=== PATIENT | female | born 1945 | race Caucasian/White ===

== ENCOUNTER 2019-09-11 21:23 | Observation (INO) | payer MEDICARE, MEDICAID ==
--- NOTE | 2019-09-11 22:26 | EDM.PDOC ---
ED HPI GENERAL MEDICAL PROBLEM - General Chief Complaint: General Stated Complaint: [facility] Time Seen by Provider: 09/11/19 21:52 Source of Information: Reports: Patient, Family (Daughter) History Limitations: Reports: No Limitations - History of Present Illness INITIAL COMMENTS - FREE TEXT/NARRATIVE: Mrs. Hills is a most pleasant 74-year-old woman with a past medical history significant for a stroke in 2002, leaving her with left hemiparesis, especially of her foot, a seizure disorder following the stroke, untreated COPD, bipolar affective disorder, and schizophrenia, who is accompanied to the ED by her daughter, who tells me that the patient ordinarily uses a walker. The patient's was just discharged from a facility, and the patient accompanied her daughter in picking him up. When they got home, the patient's daughter brought the patient into the house and sat her in a chair. She then went out to get her father, and when the 2 of them came back into the house, they found the patient sitting on the floor, apparently having fallen out of the chair onto her right side, around 12:30 this afternoon. The patient's daughter got the patient back up into the chair, got both of her parents situated, the left. She came back to see them this evening, then noticed that the patient appeared to be in pain around 19:30. The patient was complaining of right back pain, and told her daughter that she had had pain ever since she fell, but that she thought it would go away, therefore did not say anything. She reported that her pain was increased with movement, including deep breaths. The patient's daughter noticed a small bruise to the patient's right back, and tenderness without visible abnormality to another area on the patient's right back. She therefore called EMS. The patient is on Coumadin ever since her stroke. Her INR is checked every 2 weeks, including this morning, and no change was made in her Coumadin dosage. The patient denies recent illness, such as fever, chills, cough, dyspnea, chest pain, palpitations, nausea, vomiting, constipation, diarrhea, abdominal pain, urinary symptoms, recent weight gain or weight loss, recent bloody bowel movements or black bowel movements, recent joint aches, headaches, or rashes. Here in the ED, the patient is found to be hemodynamically stable, but her oxygen saturation is as low as 77% on room air, up to 95% on 1.5 L O2 per NC. The patient's PCP is Dr. Tigre Adams. Her Slice Plug Cutter Operator Helper is Dr. Sampson Mariee. Her Neurologist, whose name she cannot recall, is out of [facility]. She received an influenza vaccine this season. - Related Data Allergies Allergy/AdvReac Type Severity Reaction Status Date / Time Penicillins Allergy Rash Verified 08/07/16 14:27 codeine AdvReac Syncope Verified 04/26/17 10:25 nitroglycerin AdvReac Syncope Verified 04/26/17 10:25 Home Meds: Home Meds Citalopram [Celexa] 20 mg PO DAILY 08/07/16 [History] Metoprolol Succinate [Toprol XL] 100 mg PO DAILY 08/07/16 [History] Olmesartan [Benicar] 20 mg PO DAILY 08/07/16 [History] Omeprazole 20 mg PO DAILY 08/07/16 [History] Phenytoin 50 mg PO DAILY 08/07/16 [History] Simvastatin [Zocor] 40 mg PO BEDTIME 08/07/16 [History] Warfarin Sodium [Jantoven] 2.5 mg PO MO 08/07/16 [History] Ziprasidone HCl [Geodon] 40 mg PO BID 08/07/16 [History] Denosumab [Prolia] 60 mg IM Q6M 09/11/19 [History] Fluticasone Propionate [Flonase] 1 spray INH DAILY 09/11/19 [History] Phenytoin Sodium Extended [Dilantin] 100 mg PO BID 09/11/19 [History] Warfarin Sodium [Coumadin] 1.25 mg PO SUTUWETHFRSA 09/11/19 [History] Past Medical History Cardiovascular History: Reports: High Cholesterol, Hypertension Respiratory History: Reports: COPD (PFT-confirmed) Gastrointestinal History: Reports: GERD Genitourinary History: Reports: Chronic Renal Insuffiency Musculoskeletal History: Reports: Fracture (left hip), Osteoporosis Neurological History: Reports: CVA (2003 -> left hemiparesis), Seizure Psychiatric History: Reports: Bipolar, Schizophrenia - Past Surgical History HEENT Surgical History: Reports: Cataract Surgery (right only) Female Surgical History: Reports: Tubal Ligation Musculoskeletal Surgical History: Reports: Other (See Below) (Left hip pinning) Social & Family History - Tobacco Use Smoking Status *Q: Former Smoker Years of Tobacco use: 38 Packs/Tins Daily: 2 Month/Year Tobacco Last Used: Quit 01/05/2003 - Caffeine Use Caffeine Use: Reports: Coffee - Alcohol Use Alcohol Use History: No - Recreational Drug Use Recreational Drug Use: No - Living Situation & Occupation Living situation: Reports: , with Spouse Occupation: Retired ED ROS GENERAL - Review of Systems Review Of Systems: Comprehensive ROS is negative, except as noted in HPI. ED EXAM, GENERAL - Physical Exam Exam: See Below Exam Limited By: No Limitations General Appearance: Alert, WD/WN, No Apparent Distress Eye Exam: Bilateral Eye: EOMI, Normal Inspection Ears: Normal External Exam, Hearing Grossly Normal Nose: Normal Inspection Throat/Mouth: Normal Inspection, Normal Lips, Normal Voice, No Airway Compromise Head: Atraumatic, Normocephalic Neck: Normal Inspection, Full Range of Motion Respiratory/Chest: No Respiratory Distress, Lungs Clear, Normal Breath Sounds, No Accessory Muscle Use, Other (The patient reports pain to her posterior right back with inspiration. There is a small ecchymosis to the lateral right chest, and there is tenderness in this area, but the patient has greater tenderness to her posterior right chest, inferior to the right scapula. No visible abnormality at this site, and no rub heard on auscultation.). No: Decreased Breath Sounds, Crackles, Rhonchi, Wheezing, Stridor, Prolonged Expiration Cardiovascular: Normal Peripheral Pulses, Regular Rate, Rhythm, No Edema, No Gallop, No JVD, No Murmur, No Rub Peripheral Pulses: 4+: Radial (L), Radial (R) GI/Abdominal: Normal Bowel Sounds, Soft, Non-Tender, No Organomegaly, No Distention, No Abnormal Bruit, No Mass (Female) Exam: Deferred Rectal (Female) Exam: Deferred Back Exam: Normal Inspection, Full Range of Motion. No: CVA Tenderness (L), CVA Tenderness (R), Vertebral Tenderness (even to percussion) Extremities: Normal Inspection, Normal Range of Motion, No Pedal Edema, Normal Capillary Refill Neurological: Alert, Oriented, Normal Cognition, No Motor/Sensory Deficits Psychiatric: Flat Affect Skin Exam: Warm, Dry, Intact, Normal Color, No Rash Course - Vital Signs Last Recorded V/S: Last Vital Signs Temp 37.2 C 09/11/19 21:31 Pulse 70 09/11/19 21:31 Resp 20 09/11/19 21:31 BP 144/77 H 09/11/19 21:31 Pulse Ox 94 L 09/11/19 23:23 - Orders/Labs/Meds Orders: Active Orders 24 hr Category Date Time Status RT Incentive Spirometry [RC] ASDIRECTED Care 09/11/19 22:21 Active Meds: Medications Discontinued Medications Generic Name Dose Route Start Last Admin Trade Name Cj PRN Reason Stop Dose Admin Tramadol HCl 50 mg 09/12/19 04:24 09/12/19 04:32 Ultram PO 09/12/19 04:25 50 mg ONETIME ONE Administration - Re-Assessments/Exams Free Text/Narrative Re-Assessment/Exam: 09/11/19 22:22 The patient's presentation is concerning for a fractured right rib. I have ordered a chest x-ray to evaluate. She is breathing shallow due to pain, leading to hypoxemia down to 77% on room air, requiring a small amount of supplemental oxygen. I have ordered an incentive spirometer. 09/11/19 23:17 2-view chest radiograph reviewed. The cardiac silhouette is within normal limits. No pulmonary vascular congestion. No pleural effusions. No focal infiltrate. No pneumothorax. There is hyperinflation and bilateral diaphragmatic flattening, consistent with COPD. Aortosclerosis is noted. A medicalert device is seen over the sternum. Formal read per the Radiologist pending. 09/11/19 23:27 Chest x-ray results discussed with the patient and her daughter. The patient has been provided an incentive spirometer by the respiratory therapist, and instructed on its use. I recommended that we place the patient into observation , as she requires supplemental oxygen. We could arrange for her to go home with supplemental oxygen, however, in that scenario, the patient would likely just sit in a chair and not improve for a prolonged period of time, whereas if we bring her into observation, she can be seen by the respiratory therapist on a regular basis and instructed to use her incentive spirometry, which will quicken her recovery. The patient and her daughter agreed. 09/12/19 07:48 Two-view chest x-ray has been read by Dr. Velazquez as: 1. Emphysematous change. 2. Acute fractures within the right 7th and 8th ribs. 3. No other acute finding is seen. 09/12/19 08:[address] Chauhan here in the ED. She accepted the patient for placement into observation. Departure - Departure Time of Disposition: 23:28 Disposition: Refer to Observation Condition: Good Clinical Impression: Hypoxemia, Multiple fractures of ribs of right side - Discharge Information *PRESCRIPTION DRUG MONITORING PROGRAM REVIEWED*: Not Applicable *COPY OF PRESCRIPTION DRUG MONITORING REPORT IN PATIENT RAMIRO: Not Applicable Referrals: Tigre Adams MD [Primary Care Provider] - Sepsis Event Note - Evaluation Sepsis Screening Result: No Definite Risk - Focused Exam Vital Signs: Vital Signs Temp Pulse Resp BP Pulse Ox Pulse Ox 09/11/19 23:23 94 L 09/11/19 21:31 37.2 C 70 20 144/77 H 79 L Date Exam was Performed: 09/12/19 Time Exam was Performed: 08:44 - My Orders Last 24 Hours: My Active Orders 09/11/19 22:21 RT Incentive Spirometry [RC] ASDIRECTED - Assessment/Plan Last 24 Hours: My Active Orders 09/11/19 22:21 RT Incentive Spirometry [RC] ASDIRECTED
[2019-09-12] MEDS ORDERED: traMADol 50 MG Tab PO ONE (04:24)
--- NOTE | 2019-09-12 07:36 | CR ---
Chest: Two views of the chest were obtained. Comparison: Prior chest x-ray of 06/13/13. Heart size and mediastinum are normal. Lungs are clear but hyperinflated. Bony structures are osteopenic. Compression deformity is noted within the upper thoracic spine which appears old. Fractures are noted within the right 7th and 8th ribs which are most likely acute. No pneumothorax is seen at this time. Impression: 1. Emphysematous change. 2. Acute fractures within the right 7th and 8th ribs. 3. No other acute finding is seen. Diagnostic code #3 This report was dictated in [place] Standard Time
[2019-09-12] MEDS ORDERED: Ondansetron 4 MG/2 ML SDV IV PRN (09:55)
[2019-09-12] MEDS ORDERED: Morphine 2 MG/ML Syringe IVPUSH PRN (09:55)
[2019-09-12] MEDS ORDERED: Ondansetron 4 MG Tab.DIS PO PRN (09:55)
[2019-09-12] MEDS: Acetaminophen 325 MG Tab PO SCH ×3 (10:58→21:23)
[2019-09-12] MEDS: Trolamine Salicylate/Aloe Vera 10% Crm 85 GM Tube TOP PRN ×2 (10:59→17:40)
--- NOTE | 2019-09-12 12:00 | PCM.HP.2 ---
H&P History of Present Illness - General Date of Service: 09/12/19 Admit Problem/Dx: Admission Diagnosis/Problem Admission Diagnosis/Problem Hypoxemia - History of Present Illness Initial Comments - Free Text/Narative: This is a 74 year old female with past medical history of hypertension and previous stroke who comes to the ED brought by daughter for right sided upper flank pain. As per patient's daughter yesterday in the morning she got home with both of her parents, first walked in mom and later went outside to get her dad. When she walked in with her dad, patient was sitting on the floor, she helped her up and walked her to the living room where she sat down. She asked multiple times if the patient felt ok, and the patient said yes. Late on in the afternoon she noted patient was grimacing with right arm movements and she was avoiding to move that side as much as possible for which she brought her in to the ED for further evaluation. Right ribs Pain Score (Numeric/FACES): 8 - Related Data Allergies/Adverse Reactions: Allergies Allergy/AdvReac Type Severity Reaction Status Date / Time Penicillins Allergy Rash Verified 09/12/19 10:48 codeine AdvReac Syncope Verified 09/12/19 10:48 nitroglycerin AdvReac Syncope Verified 09/12/19 10:48 Home Medications: Home Meds Citalopram [Celexa] 20 mg PO DAILY 08/07/16 [History] Metoprolol Succinate [Toprol XL] 100 mg PO DAILY 08/07/16 [History] Olmesartan [Benicar] 20 mg PO DAILY 08/07/16 [History] Omeprazole 20 mg PO DAILY 08/07/16 [History] Phenytoin 50 mg PO DAILY 08/07/16 [History] Simvastatin [Zocor] 40 mg PO BEDTIME 08/07/16 [History] Warfarin Sodium [Jantoven] 2.5 mg PO MO 08/07/16 [History] Ziprasidone HCl [Geodon] 40 mg PO BID 08/07/16 [History] Denosumab [Prolia] 60 mg IM Q6M 09/11/19 [History] Fluticasone Propionate [Flonase] 1 spray INH DAILY 09/11/19 [History] Phenytoin Sodium Extended [Dilantin] 100 mg PO BID 09/11/19 [History] Warfarin Sodium [Coumadin] 1.25 mg PO SUTUWETHFRSA 09/11/19 [History] Past Medical History HEENT History: Reports: Cataract Cardiovascular History: Reports: High Cholesterol, Hypertension, SOB on Exertion Respiratory History: Reports: COPD Gastrointestinal History: Reports: GERD Genitourinary History: Reports: Chronic Renal Insuffiency Musculoskeletal History: Reports: Fracture, Osteoporosis Neurological History: Reports: CVA, Seizure Other Neuro History: 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; last seizure 2002 Psychiatric History: Reports: Bipolar, Schizophrenia - Past Surgical History HEENT Surgical History: Reports: Cataract Surgery Female Surgical History: Reports: Tubal Ligation Social & Family History - Family History Cardiac: Reports: Hypertension, [place] : Reports: None OBGYN: Reports: None Musculoskeletal: Reports: None Neurological: Reports: CVA Psychiatric: Reports: None Endocrine/Metabolic: Reports: None Hematologic: Reports: None Immunologic: Reports: None Dermatologic: Reports: None Oncologic: Reports: Colon - Tobacco Use Smoking Status *Q: Former Smoker Years of Tobacco use: 38 Packs/Tins Daily: 2 Used Tobacco, but Quit: Yes Month/Year Tobacco Last Used: 2009 - Caffeine Use Caffeine Use: Reports: Coffee - Recreational Drug Use Recreational Drug Use: No - Living Situation & Occupation Living situation: Reports: , with Spouse Occupation: Retired H&P Review of Systems - Review of Systems: Review Of Systems: See Below General: Denies: Fever, Chills, Malaise, Weakness, Fatigue, Night Sweats, Diaphoresis, Decreased Appetite HEENT: Denies: Contact Lenses, Dysphasia, Ear Pain, Eye Pain, Glasses, Headaches , Hearing Changes, Rhinitis, Post Nasal Drip, Sinus Congestion, Sore Throat, Vertigo Pulmonary: Denies: Shortness of Breath, Wheezing, Pleuritic Chest Pain, Cough, Sputum, Hemoptysis Cardiovascular: Denies: Chest Pain, Palpitations, Dyspnea on Exertion, Orthopnea , PND, Edema, Lightheadedness Gastrointestinal: Denies: Abdominal Pain, Anorexia, Constipation, Diarrhea, Distension, Flatus, Nausea, Vomiting Genitourinary: Denies: Dysuria, Frequency, Burning, Pain, Urgency, Incontinence , Hematuria, Retention, Discharge Musculoskeletal: Denies: Neck Pain, Shoulder Pain, Arm Pain, Back Pain, Hand Pain, Leg Pain, Foot Pain, Joint Pain, Joint Swelling, Muscle Pain, Muscle Stiffness Skin: Denies: Cyanosis, Jaundice, Mottled, Pallor, Diaphoresis, Dryness Psychiatric: Denies: Confusion, Depression, Mood Lability Neurological: Denies: Confusion, Dizziness, Headache Hematologic/Lymphatic: Denies: Anemia, Easy Bleeding Immunologic: Denies: Anaphylaxis, Food Allergy Exam - Exam Exam: See Below - Vital Signs Vital Signs: Last Vital Signs Temp 98.3 F 09/12/19 10:00 Pulse 76 09/12/19 10:14 Resp 16 09/12/19 10:00 BP 138/86 09/12/19 10:00 Pulse Ox 94 L 09/12/19 10:14 Weight: 57.606 kg - Exam General: Alert, Oriented, Cooperative, Mild Distress HEENT: Conjunctiva Clear, EOMI, Hearing Intact, Mucosa Moist & [place]: Supple, Trachea Midline, +2 Carotid Pulse wo Bruit. No: Lymphadenopathy Lungs: Decreased Breath Sounds. No: Crackles, Rales, Rhonchi, Wheezing Cardiovascular: Regular Rate, Regular Rhythm. No: Systolic Murmur, Diastolic Murmur, Rubs, Gallop/S3, Gallop/S4 GI/Abdominal Exam: Normal Bowel Sounds, Soft, Non-Tender. No: Distended, Guarding, Rigid Extremities: Normal Inspection, Normal Range of Motion, Non-Tender, No Pedal Edema Neuro Extensive - Mental Status: Alert Psychiatric: Alert - Patient Data Result Diagrams: 09/12/19 15:00 Sepsis Event Note - Evaluation Sepsis Screening Result: No Definite Risk - Focused Exam Vital Signs: Vital Signs Temp Pulse Resp BP Pulse Ox Pulse Ox 09/12/19 10:14 76 94 L 09/12/19 10:00 98.3 F 74 16 138/86 95 09/12/19 09:55 95 Date Exam was Performed: 09/12/19 Time Exam was Performed: 16:50 - Problem List (1) Multiple fractures of ribs of right side SNOMED Code(s): 1260434 ICD Code: S22.41XA - MULTIPLE FRACTURES OF RIBS, RIGHT SIDE, INIT FOR CLOS FX Status: Acute Current Visit: Yes (2) Hypoxemia SNOMED Code(s): 404303047 ICD Code: R09.02 - HYPOXEMIA Status: Acute Current Visit: Yes (3) Hypertension SNOMED Code(s): 75572966 ICD Code: I10 - ESSENTIAL (PRIMARY) HYPERTENSION Status: Acute Current Visit: Yes (4) History of CVA (cerebrovascular accident) SNOMED Code(s): 958035620 ICD Code: Z86.73 - PRSNL HX OF TIA (TIA), AND CEREB INFRC W/O RESID DEFICITS Status: Acute Current Visit: Yes (5) History of seizures SNOMED Code(s): 416100741 ICD Code: Z87.898 - PERSONAL HISTORY OF OTHER SPECIFIED CONDITIONS Status: Acute Current Visit: Yes (6) Chronic anticoagulation SNOMED Code(s): 676700149 ICD Code: Z79.01 - PLUMBER ASSISTANT (CURRENT) USE OF ANTICOAGULANTS Status: Acute Current Visit: Yes Problem List Initiated/Reviewed/Updated: Yes Assessment/Plan Comment:: Multiple fractures of ribs of right side 2/2 fall Hypoxemia O2 sat on admission 79%, went up to 94% on 2L NC Patient not taking deep breaths due to pain Unknown fall mechanism PLAN - Pain control with scheduled acetaminophen - Incentive spirometry - RT education for IS Hypertension BP on admission 144/77 Home management with Olmesartan and Metoprolol PLAN - Continue home meds once available History of CVA History of seizures On chronic anticoagulation CVA in 2002 with subsequent seizures PLAN - Phenytoin level - Continue home phenytoin - PT/ INR - Continue home Warfarin PROPHYLAXIS DVT- Continue warfarin GI- not indicated CODE STATUS: FULL CODE DISPOSITION: Patient will be admitted under observation for incentive spirometry training and oxygen supplementation. Inpatient order was placed by mistake. Lives with , daughter comes in to help. - Mortality Measure Prognosis:: Good
[2019-09-12] MEDS ORDERED: Warfarin Sliding Scale PO SCH (17:15)
[2019-09-12] MEDS: Phenytoin 100 MG Cap.ER PO SCH (21:23)
[2019-09-12] MEDS: Ziprasidone HCl 20 MG Cap PO SCH (21:25)
[2019-09-12] MEDS: Warfarin 2.5 MG Tab PO SCH (21:26)
[2019-09-13] MEDS: Acetaminophen 325 MG Tab PO SCH ×3 (07:36→19:29)
[2019-09-13] MEDS ORDERED: Phenytoin 50 MG Tab.Chew PO SCH (09:00)
[2019-09-13] MEDS ORDERED: Losartan 25 MG Tab PO SCH ×2 (09:00→21:00)
[2019-09-13] MEDS ORDERED: Metoprolol Succinate 50 MG Tab.ER PO SCH (09:00)
[2019-09-13] MEDS ORDERED: Citalopram 20 MG Tab PO SCH (09:00)
[2019-09-13] MEDS: Ziprasidone HCl 20 MG Cap PO SCH (10:54)
[2019-09-13] MEDS: Phenytoin 100 MG Cap.ER PO SCH (10:54)
[2019-09-13] MEDS: Trolamine Salicylate/Aloe Vera 10% Crm 85 GM Tube TOP PRN (13:09)
[2019-09-13] MEDS: Lidocaine 4% 1 each Patch TOP SCH (16:25)
[2019-09-13] MEDS ORDERED: Warfarin 2.5 MG Tab**OWN MED PO ONE ×2 (19:30)
[2019-09-13] MEDS: Warfarin 2.5 MG Tab PO SCH (20:17)
[2019-09-13] MEDS ORDERED: OLMESARTAN 20 MG PO SCH (21:00)
[2019-09-13] MEDS: ZIPRASIDONE 40 MG PO SCH (21:10)
[2019-09-13] MEDS: Phenytoin 100 MG Cap.ER**OWN MED PO SCH (21:11)
--- NOTE | 2019-09-13 21:44 | PCM.PN ---
- General Info Date of Service: 09/13/19 Subjective Update: Feeling OK Slept OK Tolerating diet Using incentive spirometer - Patient Data Vitals - Most Recent: Last Vital Signs Temp 98.2 F 09/13/19 16:11 Pulse 72 09/13/19 16:41 Resp 20 09/13/19 11:11 BP 135/94 H 09/13/19 16:11 Pulse Ox 92 L 09/13/19 18:12 Weight - Most Recent: 56.608 kg - Exam General: Alert, Cooperative, No Acute Distress HEENT: Pupils Equal, Pupils Reactive, Mucous Membr. Moist/[place]: Supple, Trachea Midline, No JVD, No Thyromegaly, +2 Carotid Pulse wo Bruit. No: Lymphadenopathy Lungs: Clear to Auscultation, Decreased Breath Sounds. No: Crackles, Rales, Rhonchi, Wheezing Cardiovascular: Regular Rate, Regular Rhythm. No: Murmurs, Gallops, Rubs GI/Abdominal Exam: Normal Bowel Sounds, Soft, Non-Tender, No Organomegaly, No Distention. No: Guarding, Rigid, Rebound Back Exam: Normal Inspection, CVA Tenderness (R). No: CVA Tenderness (L) Extremities: Normal Inspection, Normal Range of Motion, Non-Tender, No Pedal Edema, Normal Capillary Refill Sepsis Event Note - Evaluation Sepsis Screening Result: No Definite Risk - Focused Exam Vital Signs: Vital Signs Temp Pulse Resp BP Pulse Ox Pulse Ox 09/13/19 18:12 92 L 09/13/19 16:41 72 90 L 09/13/19 16:31 65 97 09/13/19 16:11 98.2 F 59 L 135/94 H 92 L 09/13/19 12:54 72 133/73 94 L 09/13/19 11:44 67 162/106 H 95 09/13/19 11:11 98.1 F 65 20 147/113 H 94 L 09/13/19 10:53 69 163/67 H Date Exam was Performed: 09/14/19 Time Exam was Performed: 14:01 - Problem List & Annotations (1) Multiple fractures of ribs of right side SNOMED Code(s): 6202642 Code(s): S22.41XA - MULTIPLE FRACTURES OF RIBS, RIGHT SIDE, INIT FOR CLOS FX Status: Acute Current Visit: Yes (2) Hypoxemia SNOMED Code(s): 009109816 Code(s): R09.02 - HYPOXEMIA Status: Acute Current Visit: Yes (3) Hypertension SNOMED Code(s): 71616887 Code(s): I10 - ESSENTIAL (PRIMARY) HYPERTENSION Status: Acute Current Visit: Yes (4) History of CVA (cerebrovascular accident) SNOMED Code(s): 621214322 Code(s): Z86.73 - PRSNL HX OF TIA (TIA), AND CEREB INFRC W/O RESID DEFICITS Status: Acute Current Visit: Yes (5) History of seizures SNOMED Code(s): 106776467 Code(s): Z87.898 - PERSONAL HISTORY OF OTHER SPECIFIED CONDITIONS Status: Acute Current Visit: Yes (6) Chronic anticoagulation SNOMED Code(s): 422006675 Code(s): Z79.01 - [facility] (CURRENT) USE OF ANTICOAGULANTS Status: Acute Current Visit: Yes (7) Schizophrenia SNOMED Code(s): 43233718 Code(s): F20.9 - SCHIZOPHRENIA, UNSPECIFIED Status: Acute Current Visit: Yes - Problem List Review Problem List Initiated/Reviewed/Updated: Yes - Plan Plan:: Multiple fractures of ribs of right side 2/2 fall Hypoxemia O2 sat on admission 79%, went up to 94% on 2L NC O2 trend 85-94% on 0-1L NC Patient not taking deep breaths due to pain Unknown fall mechanism PLAN - Pain control with scheduled acetaminophen - Incentive spirometry - RT education for IS Hypertension BP trend 122-135/64-74 Home management with Olmesartan and Metoprolol PLAN - Continue home meds once available Schizophrenia On citalopram and ziprasidone Not psychotic currently PLAN - Continue home medications History of CVA History of seizures On chronic anticoagulation CVA in 2002 with subsequent seizures PLAN - Phenytoin level - Continue home phenytoin - PT/ INR - Continue home Warfarin PROPHYLAXIS DVT- Continue warfarin GI- not indicated CODE STATUS: FULL CODE DISPOSITION: Patient will be admitted under observation for incentive spirometry training and oxygen supplementation. Inpatient order was placed by mistake. Lives with , daughter comes in to help.
[2019-09-14] MEDS: Acetaminophen 325 MG Tab PO SCH ×3 (00:32→13:41)
[2019-09-14] MEDS: Lidocaine 4% 1 each Patch TOP SCH (08:30)
[2019-09-14] MEDS: ZIPRASIDONE 40 MG PO SCH (08:39)
[2019-09-14] MEDS: Phenytoin 100 MG Cap.ER**OWN MED PO SCH (08:40)
[2019-09-14] MEDS ORDERED: Citalopram 20 MG Tab**OWN MED PO SCH (09:00)
[2019-09-14] MEDS ORDERED: METOPROLOL SUCCINATE 100 MG PO SCH (09:00)
[2019-09-14] MEDS ORDERED: PHENYTOIN 50 MG PO SCH (09:00)
[2019-09-14] MEDS ORDERED: Lactulose Soln 10 GM/15 ML 30 ML UD Cup PO SCH (11:15)
[2019-09-14 12:31] VITALS: BP 151/75; PULSE 72
--- NOTE | 2019-09-14 14:01 | PCM.DCSUM1 ---
Discharge Summary - Hospital Course HPI Initial Comments: This is a 74 year old female with past medical history of hypertension and previous stroke who comes to the ED brought by daughter for right sided upper flank pain. As per patient's daughter yesterday in the morning she got home with both of her parents, first walked in mom and later went outside to get her dad. When she walked in with her dad, patient was sitting on the floor, she helped her up and walked her to the living room where she sat down. She asked multiple times if the patient felt ok, and the patient said yes. Late on in the afternoon she noted patient was grimacing with right arm movements and she was avoiding to move that side as much as possible for which she brought her in to the ED for further evaluation. Diagnosis: Stroke: No - Discharge Data Discharge Date: 09/14/19 Discharge Disposition: Home, Self-Care 01 Condition: Good - Referral to Home Health Primary Care Physician: Tigre Adams MD - Discharge Diagnosis/Problem(s) (1) Multiple fractures of ribs of right side SNOMED Code(s): 9746753 ICD Code: S22.41XA - MULTIPLE FRACTURES OF RIBS, RIGHT SIDE, INIT FOR CLOS FX Status: Acute Current Visit: Yes (2) Hypoxemia SNOMED Code(s): 828776236 ICD Code: R09.02 - HYPOXEMIA Status: Acute Current Visit: Yes (3) Hypertension SNOMED Code(s): 46761375 ICD Code: I10 - ESSENTIAL (PRIMARY) HYPERTENSION Status: Acute Current Visit: Yes (4) History of CVA (cerebrovascular accident) SNOMED Code(s): 593200727 ICD Code: Z86.73 - PRSNL HX OF TIA (TIA), AND CEREB INFRC W/O RESID DEFICITS Status: Acute Current Visit: Yes (5) History of seizures SNOMED Code(s): 903792926 ICD Code: Z87.898 - PERSONAL HISTORY OF OTHER SPECIFIED CONDITIONS Status: Acute Current Visit: Yes (6) Chronic anticoagulation SNOMED Code(s): 484339569 ICD Code: Z79.01 - CARE HOME (CURRENT) USE OF ANTICOAGULANTS Status: Acute Current Visit: Yes (7) Schizophrenia SNOMED Code(s): 74939185 ICD Code: F20.9 - SCHIZOPHRENIA, UNSPECIFIED Status: Chronic Current Visit: Yes - Patient Summary/Data Consults: Consultations 09/12/19 09:55 Respiratory Care Assess and Treatment [CONS] Routine Hospital Course: Patient was admitted due to hypoxemia. She was found to be hypoxemic, down to 85% on RA due to poor inspiratory effort. Admitted with scheduled tylenol and instructions by RT to use incentive spirometer to induce forces inspiration. Initially she was not taking deep breaths but after coaching she continued to learn and take deeper breaths without any hypoxemia. Once patient was weaned off O2 supplementation she was discharged home on scheduled pain control both PO and topically - Patient Instructions Showering/Bathing: May Shower Notify Provider of: Fever, Increased Pain, Swelling and Redness, Drainage - Discharge Plan *PRESCRIPTION DRUG MONITORING PROGRAM REVIEWED*: Not Applicable *COPY OF PRESCRIPTION DRUG MONITORING REPORT IN PATIENT RAMIRO: Not Applicable Prescriptions/Med Rec: Naproxen [Naprosyn] 500 mg PO Q12HR #20 tablet Acetaminophen [Tylenol] 650 mg PO Q6H #20 tablet Docusate Sodium/Sennosides [Senna Plus] 1 tab PO BID #30 tablet Lidocaine 4% [Aspercreme 4%] 1 each TOP DAILY #10 patch Trolamine Salicylate/Aloe Vera [Aspercreme 10%] 1 gm TOP Q1H #3 tube Home Medications: Home Meds Citalopram [Celexa] 20 mg PO DAILY 08/07/16 [History] Metoprolol Succinate [Toprol XL] 100 mg PO DAILY 08/07/16 [History] Olmesartan [Benicar] 20 mg PO DAILY 08/07/16 [History] Omeprazole 20 mg PO DAILY 08/07/16 [History] Phenytoin 50 mg PO DAILY 08/07/16 [History] Simvastatin [Zocor] 40 mg PO BEDTIME 08/07/16 [History] Warfarin Sodium [Jantoven] 2.5 mg PO MO 08/07/16 [History] Ziprasidone HCl [Geodon] 40 mg PO BID 08/07/16 [History] Denosumab [Prolia] 60 mg IM Q6M 09/11/19 [History] Fluticasone Propionate [Flonase] 1 spray INH DAILY 09/11/19 [History] Phenytoin Sodium Extended [Dilantin] 100 mg PO BID 09/11/19 [History] Warfarin Sodium [Coumadin] 1.25 mg PO SUTUWETHFRSA 09/11/19 [History] Acetaminophen [Tylenol] 650 mg PO Q6H #20 tablet 09/14/19 [Rx] Docusate Sodium/Sennosides [Senna Plus] 1 tab PO BID #30 tablet 09/14/19 [Rx] Lidocaine 4% [Aspercreme 4%] 1 each TOP DAILY #10 patch 09/14/19 [Rx] Naproxen [Naprosyn] 500 mg PO Q12HR #20 tablet 09/14/19 [Rx] Trolamine Salicylate/Aloe Vera [Aspercreme 10%] 1 gm TOP Q1H #3 tube 09/14/19 [ Rx] Trolamine Salicylate/Aloe Vera [Aspercreme 10%] 1 gm TOP Q4H PRN #0 tube [Rx] Referrals: Tigre Adams MD [Primary Care Provider] - - Discharge Summary/Plan Comment DC Time >30 min.: Yes - General Info Date of Service: 09/14/19 Subjective Update: Feeling better Slept OK Tolerating diet Ambulating - Patient Data Vitals - Most Recent: Last Vital Signs Temp 97.2 F 09/14/19 11:56 Pulse 72 09/14/19 11:56 Resp 18 09/14/19 11:56 BP 151/75 H 09/14/19 11:56 Pulse Ox 94 L 09/14/19 11:56 Weight - Most Recent: 56.699 kg - Exam General: Reports: Alert, Cooperative, No Acute Distress HEENT: Reports: Pupils Equal, Pupils Reactive, Mucous Membr. Moist/[place] Neck: Reports: Supple, Trachea Midline, No JVD, No Thyromegaly Lungs: Reports: Clear to Auscultation, Normal Respiratory Effort. Denies: Crackles, Rales, Rhonchi, Wheezing Cardiovascular: Reports: Regular Rate, Regular Rhythm. Denies: Murmurs, Gallops , Rubs GI/Abdominal Exam: Normal Bowel Sounds, Soft, Non-Tender Back Exam: Reports: Normal Inspection, CVA Tenderness (R), Muscle Spasm. Denies : CVA Tenderness (L), Paraspinal Tenderness, Vertebral Tenderness Neurological: Reports: No New Focal Deficit Psy/Mental Status: Reports: Alert, Other (flat affect)
[2019-09-14] MEDS ORDERED: Warfarin 2.5 MG Tab**OWN MED PO SCH (18:00)
[2019-09-14] MEDS ORDERED: Naproxen 500 MG Tab PO SCH (21:00)
[2019-09-15] MEDS ORDERED: Warfarin 2.5 MG Tab PO SCH (18:00)
== END 2019-09-14 15:15 | disposition home or self-care (01) ==
LOC: SUPCPDRO 21:23 → JD.ED 21:23 → JD.MS 09-12 09:23
PROVIDERS: ADMIT Internal Medicine; ATTEND Internal Medicine
DX: S22.41XA Multiple fractures of ribs, right side, initial encounter for closed fracture (principal); R09.02 Hypoxemia; I12.9 Hypertensive chronic kidney disease with stage 1 through stage 4 chronic kidney disease, or unspecified chronic kidney disease; I69.854 Hemiplegia and hemiparesis following other cerebrovascular disease affecting left non-dominant side; I69.898 Other sequelae of other cerebrovascular disease; F31.9 Bipolar disorder, unspecified; F20.9 Schizophrenia, unspecified; E78.00 Pure hypercholesterolemia, unspecified; N18.9 Chronic kidney disease, unspecified; J44.9 Chronic obstructive pulmonary disease, unspecified; K21.9 Gastro-esophageal reflux disease without esophagitis; W07.XXXA Fall from chair, initial encounter; Z87.891 Personal history of nicotine dependence; Z79.01 Long term (current) use of anticoagulants; Z79.899 Other long term (current) drug therapy; Z88.0 Allergy status to penicillin; Z88.5 Allergy status to narcotic agent; Z88.8 Allergy status to other drugs, medicaments and biological substances
CPT/HCPCS: 36415; 71046; 80185; 85027; 85610; 94761; 96374; 99285; A9270; J2270

== ENCOUNTER 2020-06-24 16:53 | Emergency (ER) | payer MEDICARE, MEDICAID ==
[2020-06-24] MEDS ORDERED: Ondansetron 4 MG/2 ML SDV IVPUSH ONE (16:56)
[2020-06-24] MEDS ORDERED: Ondansetron 4 MG/2 ML SDV ONE (16:57)
[2020-06-24 17:03] VITALS: BP 157/84; PULSE 72
--- NOTE | 2020-06-24 17:06 | EDM.PDOC ---
ED HPI GENERAL MEDICAL PROBLEM - General Chief Complaint: Head Injury Stated Complaint: [facility] Time Seen by Provider: 06/24/20 16:53 - History of Present Illness INITIAL COMMENTS - FREE TEXT/NARRATIVE: 75-year-old female brought in by EMS after falling and hitting her head. The patient was using her walker getting ready to take a shower and fell straight backwards according to the patient's daughter. Striking her head on the edge of the shower. She did obtain a laceration to this area. This was on the left posterior scalp. Patient is on Coumadin the patient does not recall why. She did have some loss of consciousness the time of this is unclear. The patient has had a CVA in the past. This was in 2002 the patient has a resultant left hemiparesis. Because of this is unclear patient does not recall ever having an irregular heartbeat or having blood clots. The patient has had an upset stomach prior to this. But denies any other symptoms at this time the patient denies any pain. She is brought in with full C-spine precautions on a backboard - Related Data Allergies Allergy/AdvReac Type Severity Reaction Status Date / Time Penicillins Allergy Rash Verified 06/24/20 17:03 codeine AdvReac Syncope Verified 06/24/20 17:03 nitroglycerin AdvReac Syncope Verified 06/24/20 17:03 Home Meds: Home Meds Citalopram [Celexa] 20 mg PO DAILY 08/07/16 [History] Metoprolol Succinate [Toprol XL] 100 mg PO DAILY 08/07/16 [History] Olmesartan [Benicar] 20 mg PO DAILY 08/07/16 [History] Omeprazole 20 mg PO DAILY 08/07/16 [History] Phenytoin 50 mg PO DAILY 08/07/16 [History] ziprasidone HCL [Geodon] 40 mg PO BID 08/07/16 [History] Phenytoin Sodium Extended [Dilantin] 100 mg PO BID 09/11/19 [History] Rosuvastatin Calcium 20 mg PO DAILY 06/24/20 [History] Warfarin Sodium [Jantoven] 06/24/20 [History] Past Medical History HEENT History: Reports: Cataract Cardiovascular History: Reports: High Cholesterol, Hypertension, SOB on Exertion Respiratory History: Reports: COPD Gastrointestinal History: Reports: GERD Genitourinary History: Reports: Chronic Renal Insuffiency Musculoskeletal History: Reports: Fracture, Osteoporosis Neurological History: Reports: CVA, Seizure Other Neuro History: 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; last seizure 2002 Psychiatric History: Reports: Bipolar, Schizophrenia - Past Surgical History HEENT Surgical History: Reports: Cataract Surgery Female Surgical History: Reports: Tubal Ligation Social & Family History - Family History Cardiac: Reports: Hypertension, [place] : Reports: None OBGYN: Reports: None Musculoskeletal: Reports: None Neurological: Reports: CVA Psychiatric: Reports: None Endocrine/Metabolic: Reports: None Hematologic: Reports: None Immunologic: Reports: None Dermatologic: Reports: None Oncologic: Reports: Colon - Caffeine Use Caffeine Use: Reports: Coffee - Living Situation & Occupation Living situation: Reports: , with Spouse Occupation: Retired ED ROS GENERAL - Review of Systems Review Of Systems: See Below Constitutional: Reports: No Symptoms HEENT: Reports: No Symptoms Respiratory: Reports: No Symptoms Cardiovascular: Reports: No Symptoms Endocrine: Reports: No Symptoms GI/Abdominal: Reports: Nausea. Denies: Abdominal Pain, Constipation, Diarrhea, Vomiting : Reports: No Symptoms Musculoskeletal: Reports: No Symptoms Skin: Reports: No Symptoms Neurological: Denies: Dizziness, Numbness, Seizure (She has a seizure disorder but she has not had a seizure in over 2 years), Tingling Psychiatric: Reports: No Symptoms Hematologic/Lymphatic: Reports: Other (Is on Coumadin) Immunologic: Reports: No Symptoms ED EXAM, HEAD INJURY - Physical Exam Exam: See Below Exam Limited By: No Limitations General Appearance: Alert, No Apparent Distress Head: Normocephalic, Other (Patient has a laceration on posterior scalp try to identify the exact location is difficulty she still in a c-collar. After the c- collar was removed patient is got 1.1 cm laceration left posterior scalp) Eyes: Bilateral Eye: EOMI, Normal Inspection, PERRL Ears: Normal External Exam, Normal Canal, Hearing Grossly Normal, Normal TMs Nose: Normal Inspection, Normal Mucousa, No Blood Throat/Mouth: Normal Inspection, Normal Lips, Normal Teeth, Normal Gums, Normal Oropharynx, Normal Voice, No Airway Compromise Neck: Other (During the initial exam patient has a c-collar in place. C-collar was removed after her cervical CT showed no evidence of acute fracture or dislocation. Patient was able to demonstrate good neck motion. Nontender with palpation.) Respiratory: No Respiratory Distress, Lungs Clear, Normal Breath Sounds Cardiovascular: Regular Rate, Rhythm, No Edema, No Murmur GI/Abdominal Exam: Normal Bowel Sounds, Soft, Non-Tender Back Exam: Normal Inspection, CVA Tenderness (R), Other (Initial examination patient was logrolled her back was examined no step-off deformities noted no spi nous process discomfort noted palpation around the c-collar did not elicit any obvious tenderness). No: CVA Tenderness (L) Neurologic: varitypist II-XII nml As Tested, No Motor/Sensory Deficits, Alert, Oriented x 3. No: Aphasia, Facial Droop, Motor Weakness, Sensory Deficit, Depressed Affect Skin: Normal Color, Warm/Dry - [place] Coma Score Best Eye Response (Sarah): (4) Open Spontaneously Best Verbal Response (Sarah): (5) Oriented Best Motor Response ([place]): (6) Obeys Commands ED LACERATION/WOUND & JODY PROC - Laceration/Wound Repair Left Head Lac/wound length in cm: 3.1 Appearance: Subcutaneous Anesthetic Type: Local Local Anesthesia - Lidocaine (Xylocaine): 1% Plain Local Anesthetic Volume: 3cc Skin Prep: Saline Exploration/Debridement/Repair: Wound Explored, In a Bloodless Field Closed with: Russell # of Sutures: 9 Tetanus Status Addressed: Other (Unknown tetanus status this is updated) Complications: No #1 Interpretation EKG Date: 06/24/20 Rhythm: NSR Fields: Normal P-Wave: Present QRS: Normal ST-T: Normal QT: Normal Comparison: NA - No Prior EKG EKG Interpretation Comments: Fairly normal EKG nondiagnostic Course - Vital Signs Last Recorded V/S: Last Vital Signs Temp 36.2 C 06/24/20 16:59 Pulse 72 06/24/20 16:59 Resp 15 06/24/20 16:59 BP 157/84 H 06/24/20 16:59 Pulse Ox 90 L 06/24/20 16:59 - Orders/Labs/Meds Orders: Active Orders 24 hr Category Date Time Status EKG Documentation Completion [RC] ASDIRECTED Care 06/24/20 16:57 Active Cervical Spine wo Cont [CT] Routine Exams 06/24/20 16:58 Taken Head wo Cont [CT] Routine Exams 06/24/20 17:31 Taken PHENYTOIN [REF] Stat Lab 06/24/20 16:58 Received UA RFX BIJAN AND CULT IF INDIC [URIN] Stat Lab 06/24/20 17:08 Ordered EKG 12 Lead [EK] Stat Ther 06/24/20 16:57 Ordered Labs: Laboratory Tests 06/24/20 06/24/20 06/24/20 Range/Units 16:58 16:58 16:58 WBC 5.10 (3.98-10.04) K/mm3 RBC 4.29 (3.98-5.22) M/mm3 Hgb 12.4 D (11.2-15.7) gm/dl Hct 38.6 (34.1-44.9) % MCV 90.0 D (79.4-94.8) fl MCH 28.9 (25.6-32.2) pg MCHC 32.1 L (32.2-35.5) g/dl RDW Std Deviation 44.7 (36.4-46.3) fL Plt Count 256 D (182-369) K/mm3 MPV 8.9 L (9.4-12.3) fl Neut % (Auto) 44.9 (34.0-71.1) % Lymph % (Auto) 38.4 (19.3-51.7) % [place] % (Auto) 14.3 H (4.7-12.5) % Eos % (Auto) 1.6 (0.7-5.8) Baso % (Auto) 0.6 (0.1-1.2) % Neut # (Auto) 2.29 (1.56-6.13) K/mm3 Lymph # (Auto) 1.96 (1.18-3.74) K/mm3 [place] # (Auto) 0.73 H (0.24-0.36) K/mm3 Eos # (Auto) 0.08 (0.04-0.36) K/mm3 Baso # (Auto) 0.03 (0.01-0.08) K/mm3 PT 22.4 H (9.7-12.0) SECONDS INR 2.12 APTT 36.5 H (21.7-31.4) SECONDS Sodium 137 (136-145) mEq/L Potassium 4.0 (3.5-5.1) mEq/L Chloride 101 (98-107) mEq/L Carbon Dioxide 28 (21-32) mEq/L Anion Gap 12.0 (5-15) BUN 9 (7-18) mg/dL Creatinine 1.1 H (0.55-1.02) mg/dL Est Cr Clr Drug Dosing TNP Estimated GFR (MDRD) 48 (>60) mL/min BUN/Creatinine Ratio 8.2 L (14-18) Glucose 91 (83-115) mg/dL Calcium 9.1 (8.5-10.1) mg/dL Magnesium (1.8-2.4) mg/dl Total Bilirubin 0.2 (0.2-1.0) mg/dL AST 16 (15-37) U/L ALT 16 (14-59) U/L Alkaline Phosphatase 107 (46-116) U/L Total Protein 7.5 (6.4-8.2) g/dl Albumin 3.3 L (3.4-5.0) g/dl Globulin 4.2 gm/dL Albumin/Globulin Ratio 0.8 L (1-2) 06/24/20 Range/Units 16:58 WBC (3.98-10.04) K/mm3 RBC (3.98-5.22) M/mm3 Hgb (11.2-15.7) gm/dl Hct (34.1-44.9) % MCV (79.4-94.8) fl MCH (25.6-32.2) pg MCHC (32.2-35.5) g/dl RDW Std Deviation (36.4-46.3) fL Plt Count (182-369) K/mm3 MPV (9.4-12.3) fl Neut % (Auto) (34.0-71.1) % Lymph % (Auto) (19.3-51.7) % [place] % (Auto) (4.7-12.5) % Eos % (Auto) (0.7-5.8) Baso % (Auto) (0.1-1.2) % Neut # (Auto) (1.56-6.13) K/mm3 Lymph # (Auto) (1.18-3.74) K/mm3 [place] # (Auto) (0.24-0.36) K/mm3 Eos # (Auto) (0.04-0.36) K/mm3 Baso # (Auto) (0.01-0.08) K/mm3 PT (9.7-12.0) SECONDS INR APTT (21.7-31.4) SECONDS Sodium (136-145) mEq/L Potassium (3.5-5.1) mEq/L Chloride (98-107) mEq/L Carbon Dioxide (21-32) mEq/L Anion Gap (5-15) BUN (7-18) mg/dL Creatinine (0.55-1.02) mg/dL Est Cr Clr Drug Dosing Estimated GFR (MDRD) (>60) mL/min BUN/Creatinine Ratio (14-18) Glucose (83-115) mg/dL Calcium (8.5-10.1) mg/dL Magnesium 1.9 (1.8-2.4) mg/dl Total Bilirubin (0.2-1.0) mg/dL AST (15-37) U/L ALT (14-59) U/L Alkaline Phosphatase (46-116) U/L Total Protein (6.4-8.2) g/dl Albumin (3.4-5.0) g/dl Globulin gm/dL Albumin/Globulin Ratio (1-2) Meds: Medications Discontinued Medications Generic Name Dose Route Start Last Admin Trade Name Freq PRN Reason Stop Dose Admin Lidocaine HCl 10 ml 06/24/20 18:20 Xylocaine 1% INJECT 06/24/20 18:21 ONETIME ONE Ondansetron HCl 4 mg 06/24/20 16:56 06/24/20 17:04 Zofran IVPUSH 06/24/20 16:57 4 mg ONETIME ONE Administration Ondansetron HCl Confirm 06/24/20 16:57 06/24/20 17:04 Zofran Administered 06/24/20 16:58 Not Given Dose 4 mg .ROUTE .STK-MED ONE - Re-Assessments/Exams Free Text/Narrative Re-Assessment/Exam: 06/24/20 18:44 Patient did well through her hospital stay she was alert and cooperative during the course of the exam head and neck CTs were unrevealing for acute changes. Laboratory evaluation shows a therapeutic INR. Remaining labs uneventful. U ncertain of her last tetanus shot this is brought up-to-date. Departure - Departure Time of Disposition: 18:46 Disposition: Home, Self-Care 01 Clinical Impression: Head injury, Scalp laceration - Discharge Information Referrals: PCP,None [Primary Care Provider] - Forms: ED Department Discharge Additional Instructions: Return to the emergency room with any questions problems or worsening symptoms. Follow-up with your regular healthcare provider early this next week for recheck. Also follow-up for staple removal in 11 or 12 days. Call who controls your Coumadin and say your INR was 2.12 here in the emergency room this evening. Sepsis Event Note (ED) - Focused Exam Vital Signs: Vital Signs Temp Pulse Resp BP Pulse Ox 06/24/20 16:59 36.2 C 72 15 157/84 H 90 L - My Orders Last 24 Hours: My Active Orders 06/24/20 16:57 EKG Documentation Completion [RC] ASDIRECTED EKG 12 Lead [EK] Stat 06/24/20 16:58 Cervical Spine wo Cont [CT] Routine PHENYTOIN [REF] Stat 06/24/20 17:08 UA RFX BIJAN AND CULT IF INDIC [URIN] Stat 06/24/20 17:31 Head wo Cont [CT] Routine - Assessment/Plan Last 24 Hours: My Active Orders 06/24/20 16:57 EKG Documentation Completion [RC] ASDIRECTED EKG 12 Lead [EK] Stat 06/24/20 16:58 Cervical Spine wo Cont [CT] Routine PHENYTOIN [REF] Stat 06/24/20 17:08 UA RFX BIJAN AND CULT IF INDIC [URIN] Stat 06/24/20 17:31 Head wo Cont [CT] Routine
[2020-06-24] MEDS ORDERED: Lidocaine 1% 10 ML MDV INJECT ONE (18:20)
[2020-06-24] MEDS ORDERED: Diphtheria,Pertussis(Acell),Tetanus Vaccine 0.5 ML Syringe IM ONE (18:43)
--- NOTE | 2020-06-25 09:15 | CT ---
"PROCEDURE INFORMATION: Exam: CT Cervical Spine Without Contrast Exam date and time: 06/24/2020 4:51 PM Age: 75 years old Clinical indication: Neck pain; Patient HX: Fall, on blood thinners TECHNIQUE: Imaging protocol: Computed tomography images of the cervical spine without contrast. COMPARISON: No relevant prior studies available. FINDINGS: Bones/joints: No acute fracture. Multilevel degenerative disc disease. There is moderate to severe degeneration from C2-C3 through C5-C6. There is a slight kyphosis of the cervical spine in the region of C2 through C5 degenerative in appearance. Multilevel degenerative facet and uncovertebral joint disease. Discs/Spinal canal/Neural foramina: No significant disc protrusion. No severe spinal canal stenosis. Multilevel [id number] neural foraminal narrowing. Soft tissues: Unremarkable. Lungs: Lung apices are normal. IMPRESSION: 1. No acute findings. 2. Degenerative disc and joint disease. 3. No fracture. 4. No dislocation. Thank you for allowing us to participate in the care of your patient. Dictated and Authenticated by: Rony Burton MD BINSTOCK, SYLVIA | Final Radiology Report CONFIDENTIALITY STATEMENT This report is intended only for use by the referring physician, and only in accordance with law. If you received this in error, call [phone]. Page 2 of 2 06/24/2020 7:01 PM Central Time ([place] & [place]) CATHERINE"
--- NOTE | 2020-06-25 09:35 | CT ---
"PROCEDURE INFORMATION: Exam: CT Head Without Contrast Exam date and time: 06/24/2020 4:51 PM Age: 75 years old Clinical indication: Pain; Other: Fall, on blood thinners TECHNIQUE: Imaging protocol: Computed tomography of the head without contrast. COMPARISON: MR BRAIN WITH AND WITHOUT CONTRAS 07/16/2013 12:03 PM FINDINGS: Brain: There is diffuse cerebral atrophy concordant with the patient's age. Chronic small vessel deep white matter ischemic disease is suggested by areas of patchy white matter low attenuation. No intracranial hemorrhage. No acute large territory CVA. No mass. No acute edema. No acute intracranial abnormality. Encephalomalacic areas in bilateral occipital lobes consistent with old infarcts. Encephalomalacia in the posterior high parietal convexities bilaterally. These features are present on a previous MRI from 2012. Cerebral ventricles: No ventriculomegaly. Bones/joints: Unremarkable. No acute fracture. Paranasal sinuses: Visualized sinuses are unremarkable. No fluid levels. Mastoid air cells: Visualized mastoid air cells are well aerated. Soft tissues: Posterior left parietal scalp laceration. No foreign body.. IMPRESSION: 1. No acute intracranial abnormality. 2. No intracranial hemorrhage. 3. Old infarct changes. 4. No acute large territory CVA. 5. No skull fracture. 6. Posterior left parietal scalp laceration without foreign body. TESS CHEATHAM | Final Radiology Report CONFIDENTIALITY STATEMENT This report is intended only for use by the referring physician, and only in accordance with law. If you received this in error, call [phone]. Page 2 of 2 Thank you for allowing us to participate in the care of your patient. Dictated and Authenticated by: Rony Burton MD 06/24/2020 6:57 PM Central Time ([place] & [place]) CATHERINE"
== END 2020-06-24 19:00 | disposition home or self-care (01) ==
LOC: JD.ED 16:53
DX: S01.01XA Laceration without foreign body of scalp, initial encounter (principal); E78.00 Pure hypercholesterolemia, unspecified; J44.9 Chronic obstructive pulmonary disease, unspecified; I12.9 Hypertensive chronic kidney disease with stage 1 through stage 4 chronic kidney disease, or unspecified chronic kidney disease; N18.9 Chronic kidney disease, unspecified; F31.9 Bipolar disorder, unspecified; F20.9 Schizophrenia, unspecified; K21.9 Gastro-esophageal reflux disease without esophagitis; Z86.73 Personal history of transient ischemic attack (TIA), and cerebral infarction without residual deficits; Z88.0 Allergy status to penicillin; Z88.5 Allergy status to narcotic agent; Z88.8 Allergy status to other drugs, medicaments and biological substances; Z79.899 Other long term (current) drug therapy; Z23 Encounter for immunization; W22.8XXA Striking against or struck by other objects, initial encounter
CPT/HCPCS: 12002; 36415; 70450; 72125; 80053; 80185; 83735; 85025; 85610; 85730; 90471; 90715; 93005; 96374; 99284; J2001; J2405; 93010; 99283

== ENCOUNTER 2021-03-23 10:32 | Emergency (ER) | payer MEDICARE, MEDICAID ==
[2021-03-23 10:43] VITALS: BP 166/82; PULSE 62
[2021-03-23] MEDS ORDERED: HYDROmorphone 0.5 MG/0.5 ML Syringe IVPUSH ONE (12:04)
--- NOTE | 2021-03-23 12:36 | CT ---
CT lumbar spine Technique: Multiple axial sections were obtained from above the T11-12 disc inferiorly through the L5-S1 disc. Reconstructed coronal and sagittal images were obtained. Comparison: Prior plain film lumbar spine exam dated 03/20/11. Findings: T11-12: Posterior disc is maintained. Moderate compression fracture is seen at T12. Superior aspect of the posterior vertebral line is displaced into the thecal sac by about 6.9 mm. This causes mild central canal stenosis. Neural foramina are felt to be fairly well patent. Compression fracture is felt to be old as there are no acute fracture lines being seen. T12-L1: Posterior disc is maintained. No central canal stenosis or neural foraminal stenosis is seen. Mild degenerative apophyseal change is seen. L1-2: Posterior disc is maintained. No central canal stenosis or neural foraminal stenosis is seen. Mild degenerative apophyseal change is seen. There is a moderate compression deformity of L2 being seen which is most likely old. Superior aspect of the posterior vertebral line is displaced into the thecal sac by approximately 4 mm. No definite central canal stenosis is seen. Neural foramina are felt to be patent. L2-3: Posterior disc is preserved. Moderate degenerative apophyseal change is seen. No central canal stenosis is seen. Neural foramina are patent where the nerve roots exit. L3-4: Mild circumferential disc bulge is seen. Moderate degenerative apophyseal change is noted with thickening of the ligamentum flavum. Findings cause moderate central canal stenosis. Neural foramina are felt to be patent where the nerve roots exit. L4-5: Disc space narrowing is seen which is mild in amount. Circumferential disc bulge is noted. Fairly severe degenerative apophyseal change is noted with thickening of the ligamentum flavum. Findings cause mild central canal stenosis. Neural foramina are patent where the nerve roots exit. L5-S1: Posterior disc is preserved. Degenerative apophyseal change is noted which is moderate to severe in amount. Neural foramina are patent where the nerve roots exit. No central canal stenosis is seen. Impression: 1. Compression deformities of T12 and L2 which are most likely old. 2. Scattered degenerative change as noted above. Diagnostic code #3
--- NOTE | 2021-03-23 13:44 | EDM.PDOC ---
ED HPI GENERAL MEDICAL PROBLEM - General Chief Complaint: Back Pain or Injury Stated Complaint: [facility] Time Seen by Provider: 03/23/21 11:03 Source of Information: Reports: Patient, Family History Limitations: Reports: No Limitations - History of Present Illness INITIAL COMMENTS - FREE TEXT/NARRATIVE: 75-year-old female presents the emergency department today with complaints of intermittent low back pain. The patient does have a history of dementia and her daughter has accompanied her here. Per the patient and the daughter's report the patient has had intermittent low back pain for approximately the last week or so. She states that it is worse when laying flat or sitting up and it comes on as a spasmy type of pain and then leaves just as suddenly. She states she does not notice it when she is up and ambulating. She denies any radicular type of pain. Of note, she does use a walker to ambulate and her daughter states that over the past day or so it has become increasingly worse for her to ambulate. She was scheduled to see her physician at [facility] today however the pain has progressed so much that the daughter elected to come to the emergency department. There is no history of falls or recent injury. The daughter states that today they called the ambulance to bring the patient in. As they were waiting for the ambulance to arrive, the patient was sitting up with pillows propped behind her back and complained of some numbness noted to the top of her thigh. The patient has otherwise been feeling well. She denies any recent fever, chills, nausea, vomiting, diarrhea or abdominal pain. She denies any headache, shortness of breath, cough or any respiratory type of symptoms. She denies any urinary symptoms. She states that she has a bowel movement approximately every 2 days and that has been normal for her. The patient has been taking Tylenol and ibuprofen intermittently for the discomfort however she states that nothing has really helped. Lower Back Pain Score (Numeric/FACES): 8 - Related Data Allergies Allergy/AdvReac Type Severity Reaction Status Date / Time Penicillins Allergy Rash Verified 03/23/21 10:46 codeine AdvReac Syncope Verified 03/23/21 10:46 nitroglycerin AdvReac Syncope Verified 03/23/21 10:46 Home Meds: Home Meds Citalopram [Celexa] 20 mg PO DAILY 08/07/16 [History] Metoprolol Succinate [Toprol XL] 100 mg PO DAILY 08/07/16 [History] Olmesartan [Benicar] 20 mg PO DAILY 08/07/16 [History] ziprasidone HCL [Geodon] 40 mg PO BID 08/07/16 [History] Phenytoin Sodium Extended [Dilantin] 100 mg PO BID 09/11/19 [History] Rosuvastatin Calcium 20 mg PO DAILY 06/24/20 [History] Warfarin Sodium [Jantoven] 1 mg PO DAILY 06/24/20 [History] predniSONE [Prednisone] 20 mg PO ASDIRECTED #15 tablet 03/23/21 [Rx] Past Medical History HEENT History: Reports: Cataract Cardiovascular History: Reports: High Cholesterol, Hypertension, SOB on Exertion Respiratory History: Reports: COPD Gastrointestinal History: Reports: GERD Genitourinary History: Reports: Chronic Renal Insuffiency Musculoskeletal History: Reports: Fracture, Osteoporosis Neurological History: Reports: CVA, Seizure Other Neuro History: 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; last seizure 2002 Psychiatric History: Reports: Bipolar, Schizophrenia Endocrine/Metabolic History: Reports: None Hematologic History: Reports: None Immunologic History: Reports: None Oncologic (Cancer) History: Reports: None Dermatologic History: Reports: None - Infectious Disease History Infectious Disease History: Reports: Chicken Pox, Measles, Mumps, Rubella - Past Surgical History Head Surgeries/Procedures: Reports: None HEENT Surgical History: Reports: Cataract Surgery Female Surgical History: Reports: Tubal Ligation Endocrine Surgical History: Reports: None Musculoskeletal Surgical History: Reports: Other (See Below) Social & Family History - Family History Family Medical History: No Pertinent Family History Cardiac: Reports: Hypertension, [place] : Reports: None OBGYN: Reports: None Musculoskeletal: Reports: None Neurological: Reports: CVA Psychiatric: Reports: None Endocrine/Metabolic: Reports: None Hematologic: Reports: None Immunologic: Reports: None Dermatologic: Reports: None Oncologic: Reports: Colon - Tobacco Use Tobacco Use Status *Q: Former Tobacco User Used Tobacco, but Quit: Yes Month/Year Tobacco Last Used: 08/1974 - Caffeine Use Caffeine Use: Reports: Coffee - Recreational Drug Use Recreational Drug Use: No - Living Situation & Occupation Living situation: Reports: , with Spouse Occupation: Retired ED ROS GENERAL - Review of Systems Review Of Systems: Comprehensive ROS is negative, except as noted in HPI. ED EXAM,LOWER BACK PAIN/INJURY - Physical Exam Exam: See Below Exam Limited By: No Limitations General Appearance: Alert, WD/WN, Mild Distress (Patient does have intermittent spasmy type of pain to her lumbar area while I was in the room assessing her.) Ears: Normal External Exam, Hearing Grossly Normal Nose: Normal Inspection Throat/Mouth: Normal Inspection, Normal Lips, Normal Voice, No Airway Compromise Head: Atraumatic Neck: Normal Inspection, Supple, Non-Tender, Full Range of Motion. No: Tender Lateral, Tender Midline Respiratory/Chest: No Respiratory Distress, Lungs Clear, Normal Breath Sounds, No Accessory Muscle Use, Chest Non-Tender Cardiovascular: Normal Peripheral Pulses, Regular Rate, Rhythm, No Edema, No Mur mur GI/Abdominal: Normal Bowel Sounds, Soft, Non-Tender, No Distention (Female) Exam: Deferred Rectal (Female) Exam: Deferred Back Exam: Normal Inspection, Muscle Spasm (Lower lumbar spine), Paraspinal Tenderness (Lumbar spine), Vertebral Tenderness (Lower lumbar spine) Extremities: Normal Inspection, Normal Range of Motion, Non-Tender, No Pedal Edema, Normal Capillary Refill Neurological: Alert, Normal Mood/Affect, Oriented x 3. No: Normal Gait (Uses a walker to ambulate) Psychiatric: Normal Affect, Normal Mood Skin Exam: Warm, Dry, Intact, Normal Color, No Rash Lymphatic: No Adenopathy Course - Vital Signs Text/Narrative:: As stated above the patient has a 1 week history of intermittent spasmy type low back pain. It is worse when she is sitting up or laying flat. Patient denies any recent falls or injuries. She does have a history of some dementia however she does live with her and he has not verbalized any falls or injuries that the patient has recently had. Upon evaluation of the patient's daughter states she does have osteoporosis and she is of small stature so it is not surprising. Patient does have full range of motion to her hips upon assessment and I cannot replicate the pain with flexion or extension of the hip joint. She denies any radiculopathy. I have ordered labs to include a CBC, CMP, urinalysis with micro and culture if indicated. I have also ordered a CT of the lumbar spine. In the meantime the patient will receive 1/4 mg of Dilaudid for the discomfort. Of note, the patient only has 1 kidney and NSAIDs are contraindicated due to her age. Last Recorded V/S: Last Vital Signs Temp 98.7 F 03/23/21 10:40 Pulse 62 03/23/21 10:40 Resp 18 03/23/21 10:40 BP 166/82 H 03/23/21 10:40 Pulse Ox 88 L 03/23/21 10:40 - Orders/Labs/Meds Labs: Laboratory Tests 03/23/21 03/23/21 03/23/21 Range/Units 10:40 10:40 11:50 WBC 4.16 (3.98-10.04) K/mm3 RBC 4.23 (3.98-5.22) M/mm3 Hgb 12.5 (11.2-15.7) gm/dl Hct 37.8 (34.1-44.9) % MCV 89.4 (79.4-94.8) fl MCH 29.6 (25.6-32.2) pg MCHC 33.1 (32.2-35.5) g/dl RDW Std Deviation 47.4 H (36.4-46.3) fL Plt Count 282 (182-369) K/mm3 MPV 9.8 (9.4-12.3) fl Neut % (Auto) 55.6 (34.0-71.1) % Lymph % (Auto) 29.8 (19.3-51.7) % Gentry % (Auto) 12.7 H (4.7-12.5) % Eos % (Auto) 1.2 (0.7-5.8) Baso % (Auto) 0.7 (0.1-1.2) % Neut # (Auto) 2.31 (1.56-6.13) K/mm3 Lymph # (Auto) 1.24 (1.18-3.74) K/mm3 Gentry # (Auto) 0.53 H (0.24-0.36) K/mm3 Eos # (Auto) 0.05 (0.04-0.36) K/mm3 Baso # (Auto) 0.03 (0.01-0.08) K/mm3 Sodium 135 L (136-145) mEq/L Potassium 4.7 (3.5-5.1) mEq/L Chloride 100 (98-107) mEq/L Carbon Dioxide 28 (21-32) mEq/L Anion Gap 11.7 (5-15) BUN 12 (7-18) mg/dL Creatinine 1.0 (0.55-1.02) mg/dL Est Cr Clr Drug Dosing 41.13 mL/min Estimated GFR (MDRD) 54 (>60) mL/min BUN/Creatinine Ratio 12.0 L (14-18) Glucose 107 H (70-99) mg/dL Calcium 8.6 (8.5-10.1) mg/dL Total Bilirubin 0.3 (0.2-1.0) mg/dL AST 17 (15-37) U/L ALT 18 (14-59) U/L Alkaline Phosphatase 96 (46-116) U/L C-Reactive Protein 2.5 H* (<1.0) mg/dL Total Protein 7.6 (6.4-8.2) g/dl Albumin 3.4 (3.4-5.0) g/dl Globulin 4.2 gm/dL Albumin/Globulin Ratio 0.8 L (1-2) Urine Color Yellow (Yellow) Urine Appearance Clear (Clear) Urine pH 6.5 (5.0-8.0) Ur Specific Gonzales 1.020 (1.005-1.030) Urine Protein Negative (Negative) Urine Glucose (UA) Negative (Negative) Urine Ketones Trace H (Negative) Urine Occult Blood 2+ H (Negative) Urine Nitrite Negative (Negative) Urine Bilirubin Negative (Negative) Urine Urobilinogen 0.2 (0.2-1.0) Ur Leukocyte Esterase Negative (Negative) Urine RBC 10-20 H (0-5) /hpf Urine WBC 0-5 (0-5) /hpf Ur Squamous Epith Cells 0-5 (0-5) /hpf Urine Bacteria Few (FEW) /hpf Urine Mucus Few (FEW) /hpf Meds: Medications Discontinued Medications Generic Name Dose Route Start Last Admin Trade Name Freq PRN Reason Stop Dose Admin Hydromorphone HCl 0.25 mg 03/23/21 12:04 03/23/21 12:17 Hydromorphone 0.5 Mg/0.5 Ml Syringe IVPUSH 03/23/21 12:05 0.25 mg ONETIME ONE Administration - Re-Assessments/Exams Free Text/Narrative Re-Assessment/Exam: 03/23/21 13:48 Hematology reveals a WBC of 4.16, hemoglobin 12.5, hematocrit 37.8, platelet count 282 Chemistry reveals a sodium of 135, potassium 4.7, chloride 100, anion gap 11.7, BUN 12, creatinine 1.0, GFR 54, glucose 107, C-reactive protein 2.5 Urinalysis shows a trace ketones, 2+ occult blood, nitrite negative, leukocyte Estrace negative, urine RBC 10-[address] of the lumbar spine: T11-12: Posterior disc space is maintained. Moderate compression fracture seen at T12. Superior aspect of the posterior vertebral line is displaced into the thecal sac about 6.9 mm. This causes mild central canal stenosis. Neuroforamina are felt to be fairly well patent. Compression fracture is felt to be old as there is no acute fracture lines being seen. T12-L1: Posterior to space is maintained. No central Stenosis or neuroforaminal stenosis is seen. Mild degenerative apophyseal changes seen. L1-2: Posterior to space is maintained. No central stenosis or neural foraminal stenosis is seen. Mild degenerative apophyseal changes seen. There is a moderate compression deformity at L2 being seen which is most likely old. Superior aspect of the posterior vertebral line is displaced into the thecal sac by approximately 4 mm. No definite central canal stenosis is seen. Neuroforamina are felt to be patent. L2-3: Posterior disc is preserved. Moderate degenerative apophyseal changes seen. No central cause stenosis is seen. Neuroforamina are patent where the nerve root exits. L3-4: Mild circumferential disc bulge is seen. Moderate degenerative apophyseal changes noted with it thickening of the ligamentum flavum. Findings cause moderate central Stenosis. Neuroforamina are felt to be patent where the nerve roots exit. L4-5: Disc space narrowing is seen which is mild in amount. Circumferential disc bulge is noted. Fairly severe degenerative apophyseal changes noted with thickening of the ligamentum flavum. Findings cause mild central calcinosis. Neuroforamina are patent with nerve root exit. L5-S1: Posterior to space is preserved. Degenerative apophyseal changes noted which is moderate to severe in amount. Neuroforamina are patent for the nerve roots exit. No central canal stenosis is seen. Impression: 1. Compression deformities T12 and L2 which are most likely old. 2. Scattered degenerative change as noted above. 03/23/21 13:51 Discussed the results of the CT scan and lab work with the patient and her daughter. I also discussed case with Dr. Urbina who states treatment generally is prescription strength and statins and prednisone however the patient only has 1 kidney and although her kidney function is preserved I do not want to risk giving her NSAIDs. She will be placed on prednisone 20 mg twice daily for 5 days followed by prednisone 20 mg daily for another 5 days. This likely will help to decrease the inflammation. For the next 24 to 48 hours it is recommended that patient take Tylenol 650 mg every 4 hours until the prednisone is able to take full effect. She will need to follow-up with her primary care provider, , in about 10 days. She will be given her 1st dose of prednisone while in the emergency department. Departure - Departure Time of Disposition: 13:55 Disposition: Home, Self-Care 01 Condition: Good Clinical Impression: Compression fracture of T2 vertebra Qualifiers: Encounter type: initial encounter Qualified Code(s): S22.020A - Wedge compression fracture of second thoracic vertebra, initial encounter for closed fracture Compression fracture of L2 vertebra Qualifiers: Encounter type: initial encounter Qualified Code(s): S32.020A - Wedge compression fracture of second lumbar vertebra, initial encounter for closed fracture - Discharge Information Prescriptions: predniSONE [Prednisone] 20 mg PO ASDIRECTED #15 tablet Instructions: Chronic Back Pain, [id number], Thoracic Spine Fracture, [id number] Referrals: Tigre Adams MD [Primary Care Provider] - Additional Instructions: You were seen in the emergency department complaints of low back pain that has been intermittent for the past week. Labs were completed which were essentially unremarkable. CT scan was completed which told old compression fractures of T12 and L2. There is likely some inflammation causing the pain at this time. Treatment for this is NSAIDs and prednisone however due to the fact that you only have 1 kidney and your age it is not recommended that you take NSAIDs. You were given prednisone 20 mg while in the emergency department. I have sent a prescription to your pharmacy for prednisone to be taken twice daily for 5 days then once daily for another 5 days. For the next couple of days recommend that you take Tylenol 650 mg every 4 hours to stay on top of the pain. Prednisone should kick in in about a day or 2 so you should notice some pain relief. Be advised that prednisone can cause hyper activity so it is best to take it it earlier in the day to allow for restful sleep. Also know that prednisone can cause your appetite to increase. You will need to follow-up with your primary care provider, Dr. Adams, in about 10 days for reevaluation. Should your condition worsen or change, do not hesitate returning to the emergency department. Sepsis Event Note (ED) - Evaluation Sepsis Screening Result: No Definite Risk - Focused Exam Vital Signs: Vital Signs Temp Pulse Resp BP Pulse Ox 03/23/21 10:40 98.7 F 62 18 166/82 H 88 L
[2021-03-23] MEDS ORDERED: predniSONE 20 MG Tab PO ONE (13:47)
== END 2021-03-23 14:15 | disposition home or self-care (01) ==
LOC: JD.ED 10:32
DX: S22.020A Wedge compression fracture of second thoracic vertebra, initial encounter for closed fracture (principal); S32.020A Wedge compression fracture of second lumbar vertebra, initial encounter for closed fracture; E78.00 Pure hypercholesterolemia, unspecified; I12.9 Hypertensive chronic kidney disease with stage 1 through stage 4 chronic kidney disease, or unspecified chronic kidney disease; N18.9 Chronic kidney disease, unspecified; J44.9 Chronic obstructive pulmonary disease, unspecified; Z86.73 Personal history of transient ischemic attack (TIA), and cerebral infarction without residual deficits; Z88.0 Allergy status to penicillin; Z88.5 Allergy status to narcotic agent; Z88.8 Allergy status to other drugs, medicaments and biological substances; X58.XXXA Exposure to other specified factors, initial encounter
CPT/HCPCS: 36415; 72131; 80053; 81001; 85025; 86140; 96374; 99284; J1170; J7512; 99283

== ENCOUNTER 2021-04-28 17:03 | Inpatient (IN) | payer MEDICARE, MEDICAID ==
[2021-04-28] MEDS ORDERED: Sodium Chloride 0.9% 1,000 ML IV STA (17:40)
--- NOTE | 2021-04-28 18:29 | CT ---
Head CT Technique: Multiple axial sections through the brain were obtained. Intravenous contrast was not utilized. Reconstruction coronal and sagittal images were obtained. Comparison: Prior MRI brain of 07/16/[address] study of 06/13/13. Findings: Old areas of encephalomalacia are noted within both occipital and an upper parietal regions which most likely represent old infarcts. Ventricles along with basal cisterns and sulci over the convexities are moderately prominent which have increased in prominence from prior exam. Diminished density is noted within the periventricular white matter which is compatible with small vessel ischemic demyelination change. No evidence of intracranial hemorrhage is seen. No midline shift or mass-effect is seen. Atherosclerotic calcification is seen within the carotid siphon. Bone window settings were reviewed. Visualized paranasal sinuses show nothing acute. Visualized mastoid sinuses show nothing acute. No acute calvarial abnormality is appreciated. Impression: 1. Presumed old bilateral infarcts within the occipital and upper parietal regions. 2. Other senescent change as noted above. 3. No acute intracranial hemorrhage is seen. Diagnostic code #2
--- NOTE | 2021-04-28 18:59 | EDM.PDOC ---
ED HPI GENERAL MEDICAL PROBLEM - General Chief Complaint: General Stated Complaint: WEAK,NOT EATING OR DRINKING Time Seen by Provider: 04/28/21 17:39 Source of Information: Reports: Patient, RN Notes Reviewed History Limitations: Reports: No Limitations - History of Present Illness INITIAL COMMENTS - FREE TEXT/NARRATIVE: Patient is a 75-year-old female brought into the emergency department by her daughter with concerns of weakness, and not eating or drinking. Daughter reports that she has been having progressively worsening weakness over the last 2 weeks and up until a week ago, she was able to ambulate with a walker. She is now unable to ambulate at all. She lives at home with her and has been wheelchair bound and has been experiencing number of falls. Daughter feels that she is likely dehydrated as she has not been drinking much. She also feels that she may have a urinary tract infection. She is had no fevers at home. Denies vomiting or diarrhea. Patient does have dementia at baseline and daughter does not feel that her confusion is necessarily any worse than normal. She does have history of CVA in the past but had no residual deficit. She is on Coumadin for stroke prophylaxis. - Related Data Allergies Allergy/AdvReac Type Severity Reaction Status Date / Time Penicillins Allergy Rash Verified 04/28/21 17:14 codeine AdvReac Syncope Verified 04/28/21 17:14 nitroglycerin AdvReac Syncope Verified 04/28/21 17:14 Home Meds: Home Meds Citalopram [Celexa] 20 mg PO DAILY 08/07/16 [History] Metoprolol Succinate [Toprol XL] 100 mg PO DAILY 08/07/16 [History] Olmesartan [Benicar] 20 mg PO DAILY 08/07/16 [History] ziprasidone HCL [Geodon] 40 mg PO BID 08/07/16 [History] Phenytoin Sodium Extended [Dilantin] 100 mg PO BID 09/11/19 [History] Rosuvastatin Calcium 20 mg PO DAILY 06/24/20 [History] Warfarin Sodium [Jantoven] 1 mg PO DAILY 06/24/20 [History] Warfarin [Coumadin] 2.5 mg PO DAILY 04/28/21 [History] Past Medical History HEENT History: Reports: Cataract Cardiovascular History: Reports: High Cholesterol, Hypertension, SOB on Exertion Respiratory History: Reports: COPD Gastrointestinal History: Reports: GERD Genitourinary History: Reports: Chronic Renal Insuffiency Musculoskeletal History: Reports: Fracture, Osteoporosis Neurological History: Reports: CVA, Seizure Other Neuro History: 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; last seizure 2002 Psychiatric History: Reports: Bipolar, Schizophrenia Endocrine/Metabolic History: Reports: None Hematologic History: Reports: None Immunologic History: Reports: None Oncologic (Cancer) History: Reports: None Dermatologic History: Reports: None - Infectious Disease History Infectious Disease History: Reports: Chicken Pox, Measles, Mumps, Rubella - Past Surgical History Head Surgeries/Procedures: Reports: None HEENT Surgical History: Reports: Cataract Surgery Female Surgical History: Reports: Tubal Ligation Endocrine Surgical History: Reports: None Musculoskeletal Surgical History: Reports: Other (See Below) Social & Family History - Family History Family Medical History: No Pertinent Family History Cardiac: Reports: Hypertension, [place] : Reports: None OBGYN: Reports: None Musculoskeletal: Reports: None Neurological: Reports: CVA Psychiatric: Reports: None Endocrine/Metabolic: Reports: None Hematologic: Reports: None Immunologic: Reports: None Dermatologic: Reports: None Oncologic: Reports: Colon - Tobacco Use Tobacco Use Status *Q: Never Tobacco User - Caffeine Use Caffeine Use: Reports: Coffee - Recreational Drug Use Recreational Drug Use: No - Living Situation & Occupation Living situation: Reports: , with Spouse Occupation: Retired ED ROS GENERAL - Review of Systems Review Of Systems: See Below Constitutional: Reports: Weakness, Decreased Appetite. Denies: Fever, Chills HEENT: Reports: No Symptoms Respiratory: Reports: No Symptoms. Denies: Shortness of Breath, Cough Cardiovascular: Reports: No Symptoms. Denies: Chest Pain, Syncope Endocrine: Reports: No Symptoms GI/Abdominal: Reports: Decreased Appetite. Denies: Abdominal Pain, Nausea, Vomiting : Reports: No Symptoms Musculoskeletal: Reports: No Symptoms Skin: Reports: No Symptoms Neurological: Reports: Confusion (At baseline due to history of dementia) Psychiatric: Reports: No Symptoms Hematologic/Lymphatic: Reports: No Symptoms Immunologic: Reports: No Symptoms ED EXAM, GENERAL - Physical Exam Exam: See Below Exam Limited By: No Limitations General Appearance: Alert, WD/WN, No Apparent Distress Head: Atraumatic, Normocephalic Neck: Normal Inspection, Supple, Non-Tender, Full Range of Motion Respiratory/Chest: No Respiratory Distress, Lungs Clear, Normal Breath Sounds, No Accessory Muscle Use, Other (Mild tenderness to palpation of the left lateral rib cage.) Cardiovascular: Normal Peripheral Pulses, Regular Rate, Rhythm, No Edema, No Gallop, No JVD, No Murmur, No Rub GI/Abdominal: Normal Bowel Sounds, Soft, Non-Tender, No Organomegaly, No Distention, No Abnormal Bruit, No Mass Back Exam: Normal Inspection, Full Range of Motion. No: Vertebral Tenderness Extremities: Normal Inspection, Normal Range of Motion, Non-Tender, Normal Capillary Refill, No Pedal Edema Neurological: Alert, CN II-XII Intact, Normal Cognition, Normal Gait, Normal Reflexes, No Motor/Sensory Deficits, Confused (Oriented x1. History of dementia.) Psychiatric: Normal Affect, Normal Mood Skin Exam: Warm, Dry, Intact, No Rash, Pallor Course - Vital Signs Last Recorded V/S: Last Vital Signs Temp 97.5 F 04/28/21 21:30 Pulse 73 04/28/21 21:30 Resp 16 04/28/21 21:30 BP 149/78 H 04/28/21 21:30 Pulse Ox 93 L 04/28/21 21:30 - Orders/Labs/Meds Orders: Active Orders 24 hr Category Date Time Status CULTURE URINE [MREF] Stat Lab 04/28/21 19:20 Received Sodium Chloride 0.9% [Normal Saline] 1,000 ml Med 04/28/21 17:40 Active IV NOW Medication Orders Sodium Chloride (Normal Saline) 1,000 mls @ 150 mls/hr IV NOW STA Stop: 04/29/21 00:19 Last Infusion: 04/28/21 21:30 Dose: 100 mls/hr Documented by: Admin: 04/28/21 17:55 Dose: 150 mls/hr Documented by: KAREN Labs: Laboratory Tests 04/28/21 04/28/21 04/28/21 Range/Units 17:41 17:41 17:41 WBC 9.42 (3.98-10.04) K/mm3 RBC 3.83 L (3.98-5.22) M/mm3 Hgb 11.7 (11.2-15.7) gm/dl Hct 34.8 (34.1-44.9) % MCV 90.9 (79.4-94.8) fl MCH 30.5 (25.6-32.2) pg MCHC 33.6 (32.2-35.5) g/dl RDW Std Deviation 50.3 H (36.4-46.3) fL Plt Count 327 (182-369) K/mm3 MPV 9.0 L (9.4-12.3) fl Neut % (Auto) 73.0 H (34.0-71.1) % Lymph % (Auto) 11.5 L (19.3-51.7) % [place] % (Auto) 14.9 H (4.7-12.5) % Eos % (Auto) 0.2 L (0.7-5.8) Baso % (Auto) 0.2 (0.1-1.2) % Neut # (Auto) 6.88 H (1.56-6.13) K/mm3 Lymph # (Auto) 1.08 L (1.18-3.74) K/mm3 [place] # (Auto) 1.40 H (0.24-0.36) K/mm3 Eos # (Auto) 0.02 L (0.04-0.36) K/mm3 Baso # (Auto) 0.02 (0.01-0.08) K/mm3 PT 71.3 H* D (9.7-12.0) SECONDS INR 6.92 H* Sodium 132 L (136-145) mEq/L Potassium 4.6 (3.5-5.1) mEq/L Chloride 98 (98-107) mEq/L Carbon Dioxide 26 (21-32) mEq/L Anion Gap 12.6 (5-15) BUN 22 H (7-18) mg/dL Creatinine 1.5 H (0.55-1.02) mg/dL Est Cr Clr Drug Dosing 28.71 mL/min Estimated GFR (MDRD) 34 (>60) mL/min BUN/Creatinine Ratio 14.7 (14-18) Glucose 108 H (70-99) mg/dL Calcium 8.4 L (8.5-10.1) mg/dL Magnesium 1.8 (1.8-2.4) mg/dL Total Bilirubin 0.4 (0.2-1.0) mg/dL AST 25 (15-37) U/L ALT 21 (14-59) U/L Alkaline Phosphatase 130 H (46-116) U/L Troponin I < 0.017 (0.00-0.056) ng/mL C-Reactive Protein 5.9 H* (<1.0) mg/dL Total Protein 6.7 (6.4-8.2) g/dl Albumin 3.0 L (3.4-5.0) g/dl Globulin 3.7 gm/dL Albumin/Globulin Ratio 0.8 L (1-2) Urine Color (Yellow) Urine Appearance (Clear) Urine pH (5.0-8.0) Ur Specific [place] (1.005-1.030) Urine Protein (Negative) Urine Glucose (UA) (Negative) Urine Ketones (Negative) Urine Occult Blood (Negative) Urine Nitrite (Negative) Urine Bilirubin (Negative) Urine Urobilinogen (0.2-1.0) Ur Leukocyte Esterase (Negative) Urine RBC (0-5) /hpf Urine WBC (0-5) /hpf Urine WBC Clumps (NOT SEEN) /hpf Urine Bacteria (FEW) /hpf Urine Mucus (FEW) /hpf SARS-CoV-2 RNA (JUDD) (NEGATIVE) 04/28/21 04/28/21 Range/Units 17:52 19:20 WBC (3.98-10.04) K/mm3 RBC (3.98-5.22) M/mm3 Hgb (11.2-15.7) gm/dl Hct (34.1-44.9) % MCV (79.4-94.8) fl MCH (25.6-32.2) pg MCHC (32.2-35.5) g/dl RDW Std Deviation (36.4-46.3) fL Plt Count (182-369) K/mm3 MPV (9.4-12.3) fl Neut % (Auto) (34.0-71.1) % Lymph % (Auto) (19.3-51.7) % [place] % (Auto) (4.7-12.5) % Eos % (Auto) (0.7-5.8) Baso % (Auto) (0.1-1.2) % Neut # (Auto) (1.56-6.13) K/mm3 Lymph # (Auto) (1.18-3.74) K/mm3 [place] # (Auto) (0.24-0.36) K/mm3 Eos # (Auto) (0.04-0.36) K/mm3 Baso # (Auto) (0.01-0.08) K/mm3 PT (9.7-12.0) SECONDS INR Sodium (136-145) mEq/L Potassium (3.5-5.1) mEq/L Chloride (98-107) mEq/L Carbon Dioxide (21-32) mEq/L Anion Gap (5-15) BUN (7-18) mg/dL Creatinine (0.55-1.02) mg/dL Est Cr Clr Drug Dosing mL/min Estimated GFR (MDRD) (>60) mL/min BUN/Creatinine Ratio (14-18) Glucose (70-99) mg/dL Calcium (8.5-10.1) mg/dL Magnesium (1.8-2.4) mg/dL Total Bilirubin (0.2-1.0) mg/dL AST (15-37) U/L ALT (14-59) U/L Alkaline Phosphatase (46-116) U/L Troponin I (0.00-0.056) ng/mL C-Reactive Protein (<1.0) mg/dL Total Protein (6.4-8.2) g/dl Albumin (3.4-5.0) g/dl Globulin gm/dL Albumin/Globulin Ratio (1-2) Urine Color Yellow (Yellow) Urine Appearance Cloudy H (Clear) Urine pH 6.0 (5.0-8.0) Ur Specific [place] 1.020 (1.005-1.030) Urine Protein 2+ H (Negative) Urine Glucose (UA) Negative (Negative) Urine Ketones 1+ H (Negative) Urine Occult Blood 2+ H (Negative) Urine Nitrite Negative (Negative) Urine Bilirubin 1+ H (Negative) Urine Urobilinogen 0.2 (0.2-1.0) Ur Leukocyte Esterase 2+ H (Negative) Urine RBC 5-10 H (0-5) /hpf Urine WBC >100 H (0-5) /hpf Urine WBC Clumps Few (NOT SEEN) /hpf Urine Bacteria Many H (FEW) /hpf Urine Mucus Not seen (FEW) /hpf SARS-CoV-2 RNA (JUDD) Negative (NEGATIVE) Meds: Medications Generic Name Dose Route Start Last Admin Trade Name Freq PRN Reason Stop Dose Admin Sodium Chloride 1,000 mls @ 150 mls/hr 04/28/21 17:40 04/28/21 21:30 Normal Saline IV 04/29/21 00:19 100 mls/hr NOW STA Infusion Discontinued Medications Generic Name Dose Route Start Last Admin Trade Name Freq PRN Reason Stop Dose Admin Ceftriaxone Sodium 2 gm/ 100 mls @ 200 mls/hr 04/28/21 19:48 04/28/21 20:46 Sodium Chloride IV 04/28/21 20:17 200 mls/hr ONETIME ONE Administration Phytonadione 2.5 mg 04/28/21 20:14 04/28/21 20:46 Phytonadione Oral 2.5mg/2.5ml Soln Simple Syrup U/D PO 04/28/21 20:15 2.5 mg ONETIME ONE Administration - Re-Assessments/Exams Free Text/Narrative Re-Assessment/Exam: Patient is a 75-year-old female presenting to the emergency department with her daughter with complaints of weakness, not eating and drinking, and falls at home. She has dementia at baseline but daughter does not feel that her confusion is any worse than normal. She has been having no vomiting or diarrhea. No fevers. On exam, she does have mild tenderness to her left chest wall. There is no visible ecchymosis. Exam is otherwise unremarkable. I have ordered blood work, urinalysis, head CT, and two-view left rib with chest x-ray. I will start IV fluids of normal saline at 150 mill per hour 04/28/21 2000 Patient is grossly positive for urinary tract infection. Work-up is otherwise unremarkable. CT scan of the head shows no evidence of bleeding but does show bilateral old infarcts. Nursing staff reports that when they got her up to the commode she required to assist and was still difficult to transfer. Case was discussed with hospitalist, Dr. Gil. He is excepted the patient for admission for failure to thrive with urinary tract infection.. He requested that I add on an INR. I will write bridge orders for admission. 04/28/21 20:21 INR returned elevated at 6.96. Results discussed with hospice, Dr. Gil. Requested that I order a dose of vitamin K. I ordered vitamin K 2.5 mg p.o. to be given now. Departure - Departure Time of Disposition: 20:00 Disposition: Admitted As Inpatient 65 Condition: Good Clinical Impression: Failure to thrive Qualifiers: Failure to thrive age range: in adult Qualified Code(s): R62.7 - Adult failure to thrive Urinary tract infection Qualifiers: Urinary tract infection type: acute cystitis Hematuria presence: with hematuria Qualified Code(s): N30.01 - Acute cystitis with hematuria - Discharge Information Sepsis Event Note (ED) - Focused Exam Vital Signs: Vital Signs Temp Pulse Resp BP Pulse Ox 04/28/21 20:00 70 18 125/69 96 04/28/21 19:30 74 130/76 96 04/28/21 18:45 71 139/85 95 04/28/21 17:30 70 133/71 94 L 04/28/21 17:11 98.5 F 71 16 160/85 H 93 L - My Orders Last 24 Hours: My Active Orders 04/28/21 17:40 Sodium Chloride 0.9% [Normal Saline] 1,000 ml IV NOW 04/28/21 19:20 CULTURE URINE [MREF] Stat - Assessment/Plan Last 24 Hours: My Active Orders 04/28/21 17:40 Sodium Chloride 0.9% [Normal Saline] 1,000 ml IV NOW 04/28/21 19:20 CULTURE URINE [MREF] Stat
[2021-04-28] MEDS ORDERED: cefTRIAXone 2 GM in Sodium Chloride 0.9% 100 ML IV ONE (19:48)
--- NOTE | 2021-04-28 19:51 | CR ---
Chest and left ribs: Frontal view of the chest was obtained as well as 3 views of left ribs. Comparison: Prior chest x-ray of 06/13/13. Heart size is normal. Tortuous thoracic aorta is seen. Small to moderate sized hiatal hernia is noted. Lungs show no definite acute parenchymal change. Subacute rib fracture is noted on the right side within the seventh and eighth ribs. Frontal view shows a lucency within the anterolateral left fifth rib suspicious for nondisplaced fracture. No other definite fractures are seen but additional nondisplaced fractures could be missed. Electronic device is seen obscuring a portion of the lower left chest. Impression: 1. Acute fracture within the anterolateral left fifth rib. 2. Two subacute fractures are noted within the right ribs. 3. Other findings as noted above which are nonacute. Diagnostic code #3
[2021-04-28] MEDS ORDERED: Phytonadione ORAL 2.5mg/2.5ml Soln Simple Syrup U/D PO ONE (20:14)
[2021-04-28] MEDS ORDERED: Sodium Chloride 0.9% 1,000 ML IV SCH (22:30)
[2021-04-28] MEDS: Ziprasidone HCl 20 MG Cap PO SCH (23:56)
[2021-04-28] MEDS: Phenytoin 100 MG Cap.ER PO SCH (23:56)
[2021-04-29] MEDS ORDERED: Acetaminophen 325 MG Tab PO PRN (07:16)
[2021-04-29] MEDS ORDERED: Ondansetron 4 MG/2 ML SDV IV PRN (07:16)
--- NOTE | 2021-04-29 07:23 | PCM.HP.2 ---
H&P History of Present Illness - General Date of Service: 04/29/21 Admit Problem/Dx: Admission Diagnosis/Problem Admission Diagnosis/Problem Failure to thrive in adult Source of Information: Patient, Old Records, Provider, RN, RN Notes Reviewed History Limitations: Reports: No Limitations - History of Present Illness Initial Comments - Free Text/Narative: This is a 75-year-old female who presents to ED on the evening hours of 04/28/2021 accompanied by her daughter due to concerns of weakness and poor oral intake. Patient has reportedly had declining ability to ambulate over the past 2 weeks. She had been utilizing a walker and now is wheelchair-bound. She has had mult iple falls. She lives at home with her . Daughter is concerned that she may have a urinary tract infection and is dehydrated. No known fevers, vomiting, diarrhea. She does have baseline dementia which per the daughter is stable. History of CVA with no residual deficit. She is on Coumadin for stroke prophylaxis. In the ED temp is 97.5 Fahrenheit. Pulse 73. Respirations 16. Blood pressure 149/78. Pulse ox 93%. Labs are obtained showing a WBC of 9.42. Hemoglobin 11.7. Platelet 327,000. Neutrophils are elevated 73.0%. INR is very high at 6.92. Sodium 132. Potassium 4.6. Chloride 98. Carbon dioxide 26. Anion gap is 12.6. BUN is 22. Creatinine 1.5. GFR is 34. Glucose is 108. Magnesium 1.8. Bilirubin 0.4. AST is 25, ALT 21, alkaline phosphatase 130. Troponin le ss than 0.017. CRP is 5.9. Protein is 6.7. Albumin 3.0. UA is obtained and is grossly positive with cloudy urine, 2+ protein, 1+ ketones, 2+ occult blood, 1+ bilirubin, 2+ leukocyte esterase, 5-10 RBCs, greater than 100 WBCs, few WBC clumps, and many bacteria noted. SARS-CoV-2 RNA is negative. She is given 2 g Rocephin and started on IV fluids. She is given 2.5 mg vitamin K due to her high INR. Head CT is obtained showing presumed old bilateral infarcts within the occipital and upper parietal regions and senescent change. No acute intracranial hemorrhage is noted. Chest x-ray is obtained showing acute fracture within the anterior lateral left fifth rib and to subacute fractures within the right ribs. Other findings are noted which are nonacute. She carries a history of HLD, HTN, COPD, GERD, chronic renal sufficiency, osteoporosis, CVA, seizures, bipolar disorder, schizophrenia. She was never a smoker. Her PCP is Dr. Adams. He is a full code. She is subsequently admitted to the ICU as a medical floor overflow for management of her UTI and failure to thrive. - Related Data Allergies/Adverse Reactions: Allergies Allergy/AdvReac Type Severity Reaction Status Date / Time Penicillins Allergy Rash Verified 04/28/21 17:14 codeine AdvReac Syncope Verified 04/28/21 17:14 nitroglycerin AdvReac Syncope Verified 04/28/21 17:14 Home Medications: Home Meds Citalopram [Celexa] 20 mg PO DAILY 08/07/16 [History] Metoprolol Succinate [Toprol XL] 100 mg PO DAILY 08/07/16 [History] Olmesartan [Benicar] 20 mg PO DAILY 08/07/16 [History] ziprasidone HCL [Geodon] 40 mg PO BID 08/07/16 [History] Phenytoin Sodium Extended [Dilantin] 100 mg PO BID 09/11/19 [History] Rosuvastatin Calcium 20 mg PO DAILY 06/24/20 [History] Warfarin Sodium [Jantoven] 1 mg PO DAILY 06/24/20 [History] Warfarin [Coumadin] 2.5 mg PO DAILY 04/28/21 [History] Past Medical History HEENT History: Reports: Cataract Cardiovascular History: Reports: High Cholesterol, Hypertension, SOB on Exertion Respiratory History: Reports: COPD Gastrointestinal History: Reports: GERD Genitourinary History: Reports: Chronic Renal Insuffiency Musculoskeletal History: Reports: Fracture, Osteoporosis Neurological History: Reports: CVA, Seizure Other Neuro History: 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; last seizure 2002 Psychiatric History: Reports: Bipolar, Schizophrenia Endocrine/Metabolic History: Reports: None Hematologic History: Reports: None Immunologic History: Reports: None Oncologic (Cancer) History: Reports: None Dermatologic History: Reports: None - Infectious Disease History Infectious Disease History: Reports: Chicken Pox, Measles, Mumps, Rubella - Past Surgical History Head Surgeries/Procedures: Reports: None HEENT Surgical History: Reports: Cataract Surgery Female Surgical History: Reports: Tubal Ligation Endocrine Surgical History: Reports: None Musculoskeletal Surgical History: Reports: Other (See Below) Social & Family History - Family History Family Medical History: No Pertinent Family History Cardiac: Reports: Hypertension, [place] : Reports: None OBGYN: Reports: None Musculoskeletal: Reports: None Neurological: Reports: CVA Psychiatric: Reports: None Endocrine/Metabolic: Reports: None Hematologic: Reports: None Immunologic: Reports: None Dermatologic: Reports: None Oncologic: Reports: Colon - Tobacco Use Tobacco Use Status *Q: Former Tobacco User Years of Tobacco use: 20 Packs/Tins Daily: 1 Used Tobacco, but Quit: Yes Month/Year Tobacco Last Used: 08/2002 Second Hand Smoke Exposure: No - Caffeine Use Caffeine Use: Reports: Coffee - Alcohol Use Days Per Week of Alcohol Use: 0 - Recreational Drug Use Recreational Drug Use: No - Living Situation & Occupation Living situation: Reports: , with Spouse Occupation: Retired H&P Review of Systems - Review of Systems: Review Of Systems: See Below General: Reports: Malaise, Weakness, Fatigue, Decreased Appetite. Denies: Fe eva, Chills HEENT: Reports: No Symptoms. Denies: Headaches, Sore Throat Pulmonary: Reports: No Symptoms. Denies: Shortness of Breath, Wheezing, Pleu ritic Chest Pain, Cough, Sputum Cardiovascular: Reports: No Symptoms. Denies: Chest Pain, Palpitations, Dyspnea on Exertion, Edema, Lightheadedness, Syncope Gastrointestinal: Reports: No Symptoms. Denies: Abdominal Pain, Constipation, Diarrhea, Nausea, Vomiting Genitourinary: Reports: No Symptoms. Denies: Pain Musculoskeletal: Reports: No Symptoms Skin: Reports: No Symptoms. Denies: Cyanosis Psychiatric: Reports: Confusion (Baseline ) Neurological: Reports: Confusion, Pre-Existing Deficit (Baseline dementia, bipolar disorder, and schizophrenia.), Difficulty Walking, Weakness, Gait Disturbance. Denies: Dizziness, Headache, Numbness, Seizure, Syncope, Tingling, Tremors Hematologic/Lymphatic: Reports: No Symptoms Immunologic: Reports: No Symptoms Exam - Exam Exam: See Below - Vital Signs Vital Signs: Last Vital Signs Temp 97.2 F 04/29/21 03:00 Pulse 72 04/29/21 03:00 Resp 16 04/29/21 03:00 BP 119/68 04/29/21 03:00 Pulse Ox 94 L 04/29/21 03:00 Weight: 106 lb 1.6 oz - Exam Quality Assessment: DVT Prophylaxis. No: Supplemental Oxygen, Urinary Catheter General: Alert, Cooperative. No: Oriented, Mild Distress HEENT: Conjunctiva Clear, EACs Clear, Mucosa Moist & [place], Posterior Pharynx Clear Neck: Supple, Trachea Midline Lungs: Clear to Auscultation, Normal Respiratory Effort, Other (Left lateral rib pain 2/2 rib fracture ) Cardiovascular: Regular Rate, Regular Rhythm GI/Abdominal Exam: Normal Bowel Sounds, Soft, Non-Tender, No Distention (Female) Exam: Deferred Rectal (Female) Exam: Deferred Back Exam: Normal Inspection, Full Range of Motion Extremities: Normal Inspection, Normal Range of Motion, Non-Tender, No Pedal Edema, Normal Capillary Refill Peripheral Pulses: 2+: Radial (L), Radial (R), Dorsalis Pedis (L), Dorsalis Pedis (R) Skin: Warm, Dry, Intact Neurological: Cranial Nerves Intact (grossly ) Neuro Extensive - Mental Status: Alert - Patient Data Lab Results Last 24 hrs: Laboratory Results - last 24 hr 04/28/21 04/28/21 04/28/21 Range/Units 17:41 17:41 17:41 WBC 9.42 (3.98-10.04) K/mm3 RBC 3.83 L (3.98-5.22) M/mm3 Hgb 11.7 (11.2-15.7) gm/dl Hct 34.8 (34.1-44.9) % MCV 90.9 (79.4-94.8) fl MCH 30.5 (25.6-32.2) pg MCHC 33.6 (32.2-35.5) g/dl RDW Std Deviation 50.3 H (36.4-46.3) fL Plt Count 327 (182-369) K/mm3 MPV 9.0 L (9.4-12.3) fl Neut % (Auto) 73.0 H (34.0-71.1) % Lymph % (Auto) 11.5 L (19.3-51.7) % [place] % (Auto) 14.9 H (4.7-12.5) % Eos % (Auto) 0.2 L (0.7-5.8) Baso % (Auto) 0.2 (0.1-1.2) % Neut # (Auto) 6.88 H (1.56-6.13) K/mm3 Lymph # (Auto) 1.08 L (1.18-3.74) K/mm3 [place] # (Auto) 1.40 H (0.24-0.36) K/mm3 Eos # (Auto) 0.02 L (0.04-0.36) K/mm3 Baso # (Auto) 0.02 (0.01-0.08) K/mm3 PT 71.3 H* D (9.7-12.0) SECONDS INR 6.92 H* Sodium 132 L (136-145) mEq/L Potassium 4.6 (3.5-5.1) mEq/L Chloride 98 (98-107) mEq/L Carbon Dioxide 26 (21-32) mEq/L Anion Gap 12.6 (5-15) BUN 22 H (7-18) mg/dL Creatinine 1.5 H (0.55-1.02) mg/dL Est Cr Clr Drug Dosing 28.71 mL/min Estimated GFR (MDRD) 34 (>60) mL/min BUN/Creatinine Ratio 14.7 (14-18) Glucose 108 H (70-99) mg/dL Calcium 8.4 L (8.5-10.1) mg/dL Magnesium 1.8 (1.8-2.4) mg/dL Total Bilirubin 0.4 (0.2-1.0) mg/dL AST 25 (15-37) U/L ALT 21 (14-59) U/L Alkaline Phosphatase 130 H (46-116) U/L Troponin I < 0.017 (0.00-0.056) ng/mL C-Reactive Protein 5.9 H* (<1.0) mg/dL Total Protein 6.7 (6.4-8.2) g/dl Albumin 3.0 L (3.4-5.0) g/dl Globulin 3.7 gm/dL Albumin/Globulin Ratio 0.8 L (1-2) Urine Color (Yellow) Urine Appearance (Clear) Urine pH (5.0-8.0) Ur Specific [place] (1.005-1.030) Urine Protein (Negative) Urine Glucose (UA) (Negative) Urine Ketones (Negative) Urine Occult Blood (Negative) Urine Nitrite (Negative) Urine Bilirubin (Negative) Urine Urobilinogen (0.2-1.0) Ur Leukocyte Esterase (Negative) Urine RBC (0-5) /hpf Urine WBC (0-5) /hpf Urine WBC Clumps (NOT SEEN) /hpf Urine Bacteria (FEW) /hpf Urine Mucus (FEW) /hpf SARS-CoV-2 RNA (JUDD) (NEGATIVE) 04/28/21 04/28/21 04/29/21 Range/Units 17:52 19:20 05:38 WBC 5.81 (3.98-10.04) K/mm3 RBC 3.56 L (3.98-5.22) M/mm3 Hgb 10.6 L (11.2-15.7) gm/dl Hct 32.5 L (34.1-44.9) % MCV 91.3 (79.4-94.8) fl MCH 29.8 (25.6-32.2) pg MCHC 32.6 (32.2-35.5) g/dl RDW Std Deviation 49.8 H (36.4-46.3) fL Plt Count 268 (182-369) K/mm3 MPV 9.3 L (9.4-12.3) fl Neut % (Auto) 61.6 (34.0-71.1) % Lymph % (Auto) 22.4 (19.3-51.7) % Victoria % (Auto) 15.3 H (4.7-12.5) % Eos % (Auto) 0.3 L (0.7-5.8) Baso % (Auto) 0.2 (0.1-1.2) % Neut # (Auto) 3.58 (1.56-6.13) K/mm3 Lymph # (Auto) 1.30 (1.18-3.74) K/mm3 Victoria # (Auto) 0.89 H (0.24-0.36) K/mm3 Eos # (Auto) 0.02 L (0.04-0.36) K/mm3 Baso # (Auto) 0.01 (0.01-0.08) K/mm3 PT (9.7-12.0) SECONDS INR Sodium (136-145) mEq/L Potassium (3.5-5.1) mEq/L Chloride (98-107) mEq/L Carbon Dioxide (21-32) mEq/L Anion Gap (5-15) BUN (7-18) mg/dL Creatinine (0.55-1.02) mg/dL Est Cr Clr Drug Dosing mL/min Estimated GFR (MDRD) (>60) mL/min BUN/Creatinine Ratio (14-18) Glucose (70-99) mg/dL Calcium (8.5-10.1) mg/dL Magnesium (1.8-2.4) mg/dL Total Bilirubin (0.2-1.0) mg/dL AST (15-37) U/L ALT (14-59) U/L Alkaline Phosphatase (46-116) U/L Troponin I (0.00-0.056) ng/mL C-Reactive Protein (<1.0) mg/dL Total Protein (6.4-8.2) g/dl Albumin (3.4-5.0) g/dl Globulin gm/dL Albumin/Globulin Ratio (1-2) Urine Color Yellow (Yellow) Urine Appearance Cloudy H (Clear) Urine pH 6.0 (5.0-8.0) Ur Specific [place] 1.020 (1.005-1.030) Urine Protein 2+ H (Negative) Urine Glucose (UA) Negative (Negative) Urine Ketones 1+ H (Negative) Urine Occult Blood 2+ H (Negative) Urine Nitrite Negative (Negative) Urine Bilirubin 1+ H (Negative) Urine Urobilinogen 0.2 (0.2-1.0) Ur Leukocyte Esterase 2+ H (Negative) Urine RBC 5-10 H (0-5) /hpf Urine WBC >100 H (0-5) /hpf Urine WBC Clumps Few (NOT SEEN) /hpf Urine Bacteria Many H (FEW) /hpf Urine Mucus Not seen (FEW) /hpf SARS-CoV-2 RNA (JUDD) Negative (NEGATIVE) 04/29/21 04/29/21 Range/Units 05:38 05:38 WBC (3.98-10.04) K/mm3 RBC (3.98-5.22) M/mm3 Hgb (11.2-15.7) gm/dl Hct (34.1-44.9) % MCV (79.4-94.8) fl MCH (25.6-32.2) pg MCHC (32.2-35.5) g/dl RDW Std Deviation (36.4-46.3) fL Plt Count (182-369) K/mm3 MPV (9.4-12.3) fl Neut % (Auto) (34.0-71.1) % Lymph % (Auto) (19.3-51.7) % Victoria % (Auto) (4.7-12.5) % Eos % (Auto) (0.7-5.8) Baso % (Auto) (0.1-1.2) % Neut # (Auto) (1.56-6.13) K/mm3 Lymph # (Auto) (1.18-3.74) K/mm3 [place] # (Auto) (0.24-0.36) K/mm3 Eos # (Auto) (0.04-0.36) K/mm3 Baso # (Auto) (0.01-0.08) K/mm3 PT 33.5 H D (9.7-12.0) SECONDS INR 3.20 Sodium 129 L (136-145) mEq/L Potassium 4.0 (3.5-5.1) mEq/L Chloride 100 (98-107) mEq/L Carbon Dioxide 20 L (21-32) mEq/L Anion Gap 13.0 (5-15) BUN 18 (7-18) mg/dL Creatinine 1.1 H (0.55-1.02) mg/dL Est Cr Clr Drug Dosing 33.06 mL/min Estimated GFR (MDRD) 48 (>60) mL/min BUN/Creatinine Ratio 16.4 (14-18) Glucose 75 (70-99) mg/dL Calcium 7.7 L (8.5-10.1) mg/dL Magnesium (1.8-2.4) mg/dL Total Bilirubin 0.3 (0.2-1.0) mg/dL AST 23 (15-37) U/L ALT 16 (14-59) U/L Alkaline Phosphatase 116 (46-116) U/L Troponin I (0.00-0.056) ng/mL C-Reactive Protein (<1.0) mg/dL Total Protein 6.2 L (6.4-8.2) g/dl Albumin 2.6 L (3.4-5.0) g/dl Globulin 3.6 gm/dL Albumin/Globulin Ratio 0.7 L (1-2) Urine Color (Yellow) Urine Appearance (Clear) Urine pH (5.0-8.0) Ur Specific [place] (1.005-1.030) Urine Protein (Negative) Urine Glucose (UA) (Negative) Urine Ketones (Negative) Urine Occult Blood (Negative) Urine Nitrite (Negative) Urine Bilirubin (Negative) Urine Urobilinogen (0.2-1.0) Ur Leukocyte Esterase (Negative) Urine RBC (0-5) /hpf Urine WBC (0-5) /hpf Urine WBC Clumps (NOT SEEN) /hpf Urine Bacteria (FEW) /hpf Urine Mucus (FEW) /hpf SARS-CoV-2 RNA (JUDD) (NEGATIVE) Result Diagrams: 04/29/21 05:38 04/29/21 05:38 Sepsis Event Note - Evaluation Sepsis Screening Result: Possible Sepsis Risk - Focused Exam Vital Signs: Vital Signs Temp Pulse Resp BP Pulse Ox 04/29/21 03:00 97.2 F 72 16 119/68 94 L 04/28/21 21:30 97.5 F 73 16 149/78 H 93 L 04/28/21 20:55 72 16 140/80 95 04/28/21 20:30 72 16 136/69 95 04/28/21 20:00 70 18 125/69 96 04/28/21 19:30 74 130/76 96 - Problem List (1) HLD (hyperlipidemia) SNOMED Code(s): 07447494 ICD Code: E78.5 - HYPERLIPIDEMIA, UNSPECIFIED Status: Chronic Priority: Low Current Visit: No Qualifiers: Hyperlipidemia type: unspecified Qualified Code(s): E78.5 - Hyperlipidemia, unspecified (2) COPD (chronic obstructive pulmonary disease) SNOMED Code(s): 55516370 ICD Code: J44.9 - CHRONIC OBSTRUCTIVE PULMONARY DISEASE, UNSPECIFIED Status: Chronic Priority: Low Current Visit: No Qualifiers: COPD type: unspecified COPD Qualified Code(s): J44.9 - Chronic obstructive pulmonary disease, unspecified (3) GERD (gastroesophageal reflux disease) SNOMED Code(s): 137923683 ICD Code: K21.9 - GASTRO-ESOPHAGEAL REFLUX DISEASE WITHOUT ESOPHAGITIS Status: Chronic Priority: Low Current Visit: No Qualifiers: Esophagitis presence: esophagitis presence not specified Qualified Code(s): K21.9 - Gastro-esophageal reflux disease without esophagitis (4) CKD (chronic kidney disease) SNOMED Code(s): 650907308 ICD Code: N18.9 - CHRONIC KIDNEY DISEASE, UNSPECIFIED Status: Chronic Priority: Medium Current Visit: Yes Qualifiers: Chronic kidney disease stage: stage 3 (moderate) Chronic kidney disease stage 3 subtype: stage 3b (GFR 30-44) Qualified Code(s): N18.32 - Chronic kidney disease, stage 3b (5) Osteoporosis SNOMED Code(s): 83031047 ICD Code: M81.0 - AGE-RELATED OSTEOPOROSIS W/O CURRENT PATHOLOGICAL FRACTURE Status: Chronic Priority: Low Current Visit: No Qualifiers: Osteoporosis type: unspecified Presence of current pathological fracture: unspecified Qualified Code(s): M81.0 - Age-related osteoporosis without current pathological fracture (6) Bipolar disorder SNOMED Code(s): 11133597 ICD Code: F31.9 - BIPOLAR DISORDER, UNSPECIFIED Status: Chronic Priority: Medium Current Visit: Yes Qualifiers: Active/Remission status: remission status unspecified Qualified Code(s): F31.9 - Bipolar disorder, unspecified (7) Left rib fracture SNOMED Code(s): 55228974 ICD Code: S22.32XA - FRACTURE OF ONE RIB, LEFT SIDE, INIT FOR CLOS FX Status: Acute Priority: Medium Current Visit: Yes Qualifiers: Encounter type: initial encounter Rib fracture type: single rib Fracture type: closed Qualified Code(s): S22.32XA - Fracture of one rib, left side, initial encounter for closed fracture (8) Multiple falls SNOMED Code(s): 819492594 ICD Code: R29.6 - REPEATED FALLS Status: Acute Priority: High Current Visit: Yes (9) Weakness SNOMED Code(s): 26458856 ICD Code: R53.1 - WEAKNESS Status: Acute Priority: High Current Visit: Yes (10) Supratherapeutic INR SNOMED Code(s): 188113810 ICD Code: R79.1 - ABNORMAL COAGULATION PROFILE Status: Acute Priority: High Current Visit: Yes (11) Hyponatremia SNOMED Code(s): 50511505 ICD Code: E87.1 - HYPO-OSMOLALITY AND HYPONATREMIA Status: Acute Priority: High Current Visit: Yes (12) Failure to thrive SNOMED Code(s): 09224000 ICD Code: [id number] - Status: Acute Priority: High Current Visit: Yes Qualifiers: Failure to thrive age range: in adult Qualified Code(s): R62.7 - Adult failure to thrive (13) Urinary tract infection SNOMED Code(s): 85136275 ICD Code: N39.0 - URINARY TRACT INFECTION, SITE NOT SPECIFIED Status: Acute Priority: High Current Visit: Yes Qualifiers: Urinary tract infection type: acute cystitis Hematuria presence: with hematuria Qualified Code(s): N30.01 - Acute cystitis with hematuria (14) Chronic anticoagulation SNOMED Code(s): 080172665 ICD Code: 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 Status: Chronic Priority: High Current Visit: Yes (15) History of CVA (cerebrovascular accident) SNOMED Code(s): 313246524 ICD Code: Z86.73 - PRSNL HX OF TIA (TIA), AND CEREB INFRC W/O RESID DEFICITS Status: Chronic Priority: Medium Current Visit: No (16) History of seizures SNOMED Code(s): 324973769 ICD Code: Z87.898 - PERSONAL HISTORY OF OTHER SPECIFIED CONDITIONS Status: Chronic Priority: Medium Current Visit: No (17) Hypertension SNOMED Code(s): 97347889 ICD Code: I10 - ESSENTIAL (PRIMARY) HYPERTENSION Status: Chronic Priority: Medium Current Visit: No Qualifiers: Hypertension type: unspecified Qualified Code(s): I10 - Essential (primary) hypertension (18) Schizophrenia SNOMED Code(s): 95970877 ICD Code: F20.9 - SCHIZOPHRENIA, UNSPECIFIED Status: Chronic Priority: Medium Current Visit: No Qualifiers: Schizophrenia type: unspecified Qualified Code(s): F20.9 - Schizophrenia, unspecified (19) Folic acid deficiency SNOMED Code(s): 271649625 ICD Code: E53.8 - DEFICIENCY OF OTHER SPECIFIED B GROUP VITAMINS Status: Acute Priority: High Current Visit: Yes (20) Dementia SNOMED Code(s): 56125582 ICD Code: F03.90 - UNSPECIFIED DEMENTIA WITHOUT BEHAVIORAL DISTURBANCE Status: Chronic Priority: High Current Visit: Yes Qualifiers: Dementia type: unspecified type Dementia behavioral disturbance: without behavioral disturbance Qualified Code(s): F03.90 - Unspecified dementia without behavioral disturbance Problem List Initiated/Reviewed/Updated: Yes Orders Last 24hrs: Active Orders 24 hr Category Date Time Status Patient Status [ADT] Routine ADT 04/28/21 20:24 Active Activity as Tolerated [RC] .Routine Care 04/28/21 22:35 Active Height and Weight [RC] DAILY Care 04/29/21 07:16 Ordered Intake and Output [RC] DAILY Care 04/29/21 07:16 Ordered Notify Provider Consults [RC] ASDIRECTED Care 04/28/21 22:30 Active Oxygen Therapy [RC] ASDIRECTED Care 04/29/21 07:16 Ordered Pulse Oximetry [RC] PRN Care 04/29/21 07:16 Ordered Up With Assistance [RC] ASDIRECTED Care 04/29/21 07:16 Ordered Up to Chair [RC] ASDIRECTED Care 04/29/21 07:16 Ordered Vital Signs [RC] Q6H Care 04/29/21 07:16 Ordered Consult to Case Management/Financial Economist [CONS] Cons 04/29/21 07:16 Ordered Routine Consult to Physician [CONS] Routine Cons 04/28/21 22:29 Active OT Evaluation and Treatment [CONS] Routine Cons 04/29/21 07:17 Ordered PT Evaluation and Treatment [CONS] Routine Cons 04/29/21 07:17 Ordered Regular Diet [DIET] Diet 04/29/21 Breakfast Active BASIC METABOLIC PANEL,BMP [CHEM] AM Lab 04/30/21 05:11 Ordered BASIC METABOLIC PANEL,BMP [CHEM] AM Lab 05/01/21 05:11 Ordered BASIC METABOLIC PANEL,BMP [CHEM] AM Lab 05/02/21 05:11 Ordered BASIC METABOLIC PANEL,BMP [CHEM] AM Lab 05/03/21 05:11 Ordered CBC WITH AUTO DIFF [HEME] AM Lab 04/30/21 05:11 Ordered CBC WITH AUTO DIFF [HEME] AM Lab 05/01/21 05:11 Ordered CBC WITH AUTO DIFF [HEME] AM Lab 05/02/21 05:11 Ordered CBC WITH AUTO DIFF [HEME] AM Lab 05/03/21 05:11 Ordered CULTURE URINE [MREF] Stat Lab 04/28/21 19:20 Received FOLIC ACID [CHEM] Routine Lab 04/29/21 07:21 Ordered INR,PT,PROTHROMBIN TIME [COAG] AM Lab 04/30/21 05:11 Ordered INR,PT,PROTHROMBIN TIME [COAG] AM Lab 05/01/21 05:11 Ordered INR,PT,PROTHROMBIN TIME [COAG] AM Lab 05/02/21 05:11 Ordered INR,PT,PROTHROMBIN TIME [COAG] AM Lab 05/03/21 05:11 Ordered MAGNESIUM [CHEM] AM Lab 04/30/21 05:11 Ordered MAGNESIUM [CHEM] AM Lab 05/01/21 05:11 Ordered MAGNESIUM [CHEM] AM Lab 05/02/21 05:11 Ordered MAGNESIUM [CHEM] AM Lab 05/03/21 05:11 Ordered TSH [CHEM] Routine Lab 04/29/21 07:20 Ordered VITAMIN D,25-HYDROXY [CHEM] Routine Lab 04/29/21 07:21 Ordered Acetaminophen [TylenoL] Med 04/29/21 07:16 Ordered 650 mg PO Q4H PRN Citalopram [Celexa] Med 04/29/21 09:00 Ordered 20 mg PO DAILY Metoprolol Succinate Med 04/29/21 09:00 Ordered 100 mg PO DAILY Ondansetron [Zofran] Med 04/29/21 07:16 Ordered 4 mg IV Q6H PRN Pharmacy to Dose - Warfarin Med 04/29/21 07:30 Ordered 1 dose .XX ASDIRECTED Phenytoin Med 04/28/21 22:30 Active 100 mg PO BID Sodium Chloride 0.9% [Normal Saline] 1,000 ml Med 04/28/21 22:30 Active IV ASDIRECTED cefTRIAXone [Rocephin] 1 gm Med 04/29/21 21:30 Ordered Sodium Chloride 0.9% [Normal Saline] 100 ml IV Q24H ziprasidone HCL [Geodon] Med 04/28/21 22:30 Active 40 mg PO BID Code Status [Resuscitation Status] Routine Resus Stat 04/28/21 22:34 Ordered Medication Orders Acetaminophen (Acetaminophen 325 Mg Tab) 650 mg PO Q4H PRN PRN Reason: Pain (Mild 1-3)/fever Citalopram Hydrobromide (Citalopram 20 Mg Tab) 20 mg PO DAILY SOFIA Sodium Chloride (Normal Saline) 1,000 mls @ 50 mls/hr IV ASDIRECTED SOFIA Last Admin: 04/29/21 03:44 Dose: 50 mls/hr Documented by: HEYDIEBRI Ceftriaxone Sodium 1 gm/ (Sodium Chloride) 100 mls @ 200 mls/hr IV Q24H SOFIA Metoprolol Succinate (Metoprolol Succinate 50 Mg Tab.Er) 100 mg PO DAILY [facility] Ondansetron HCl (Ondansetron 4 Mg/2 Ml Sdv) 4 mg IV Q6H PRN PRN Reason: Nausea/Vomiting Phenytoin Sodium (Phenytoin 100 Mg Cap.Er) 100 mg PO BID [facility] Last Admin: 04/28/21 23:56 Dose: 100 mg Documented by: PATITO Warfarin Sodium (Pharmacy To Dose - Warfarin) 1 dose .XX ASDIRECTED [facility] Ziprasidone (Ziprasidone Hcl 20 Mg Cap) 40 mg PO BID [facility] Last Admin: 04/28/21 23:56 Dose: 40 mg Documented by: PATITO Assessment/Plan Comment:: Assessment - 04/29/2021 (admitted late 04/28/2021) * 75-year-old female who presents to ED accompanied by her daughter due to concerns of weakness and poor oral intake * History of: HLD, HTN, COPD, GERD, chronic renal sufficiency, osteoporosis, CVA, seizures, bipolar disorder, schizophrenia, dementia * Reportedly had declining ability to ambulate over the past 2 weeks * Had been utilizing a walker and now is wheelchair-bound * Has had multiple falls. * Lives at home with her * Daughter is concerned that she may have a urinary tract infection and is dehydrated * No known fevers, vomiting, diarrhea. * She does have baseline dementia which per the daughter is stable * History of CVA with no residual deficiency * On Coumadin for stroke prophylaxis. * Labs are obtained in ED and on floor * WBC of 9.42-->5.81 * Hemoglobin 11.7-->10.6 * Platelet 327,000-->260,000 * Neutrophils are elevated 73.0%-->61.6% * INR is very high at 6.92-->3.20 * Sodium 132-->129 * Potassium 4.6-->4.0 * Chloride 98-->100 * Carbon dioxide 26-->20 * Anion gap is 12.6-->13.0 * BUN is 22-->18 Creatinine 1.5-->1.1 GFR is 34-->48 * Glucose is 108-->75 * Magnesium 1.8. * Bilirubin 0.4-->0.3 * AST is 25-->23, ALT 21-->16, alkaline phosphatase 130-->16. * Troponin less than 0.017. * CRP is 5.9. * Protein is 6.7-->6.2 * Albumin 3.0-->2.6 * Vitamin D 34.1 * Folate 3.5 * TSH 2.395 * UA is obtained and is grossly positive with cloudy urine, 2+ protein, 1+ ketones, 2+ occult blood, 1+ bilirubin, 2+ leukocyte esterase, 5-10 RBCs, greater than 100 WBCs, few WBC clumps, and many bacteria noted. * SARS-CoV-2 RNA is negative. * She is given 2 g Rocephin and started on IV fluids. She is given 2.5 mg vitamin K due to her high INR. 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 No acute intracra nial hemorrhage is noted. * Chest x-ray is obtained showing acute fracture within the anterior lateral left fifth rib and to subacute fractures within the right ribs. Other findings are noted which are nonacute. * She is subsequently admitted to the ICU as a medical floor overflow for management of her UTI and failure to thrive. PLAN: Urinary tract infection * Rocephin 1mg daily * IV fluids as ordered * Daily labs * Await urine culture * Await blood cultures Left rib fracture Multiple falls Failure to thrive Weakness Osteoporosis * PT/OT * CM/SW for discharge planning * Pain medications as ordered * Check TSH (WNL) * Check Vitamin D (WNL) * Check Folic acid (low) * Check B12 Folic acid deficiency * ? Cause of symptoms * Supplement * PCP follow-up Supratherapeutic INR Chronic anticoagulation * Vitamin K given in ED * Pharmacy to dose warfarin * PCP follow-up * Daily INR Bipolar disorder Schizophrenia Dementia * Continue home psychiatric meds as ordered * Psychiatric consultation (Dr. Booker) to review medications * ? medication cause of above symptoms * Let patient sleep protocol Hyponatremia * IV fluids as noted * Consider sodium tablets * Monitor labs HLD (hyperlipidemia) * No acute concerns * Hold home statin COPD (chronic obstructive pulmonary disease) * No home respiratory meds * O2 as needed with saturation goal of >90% * No acute concerns GERD (gastroesophageal reflux disease) * No acute concerns CKD (chronic kidney disease) * IV fluids as above * Monitor daily labs History of CVA (cerebrovascular accident) History of seizures * No acute concerns * Continue home seizure meds * Check phenytoin level Hypertension * Monitor vital signs * No acute concerns * Continue home BP meds as ordered Code status: Full code PCP: Dr. Adams DVT prohylaxis: Warfarin with pharmacy to dose (Currently supratherapeutic) Social: Patient lives at home with Disposition: Patient mated to medical floor for treatment of UTI and further work-up of failure to thrive including PT/OT evaluation. Likely length of stay 3 to 4 days. - Mortality Measure Prognosis:: Good
[2021-04-29 08:05] LABS: VITAMIN D,25-HYDROXY 34.1 ng/ml (30.0-100.0)
[2021-04-29] MEDS ORDERED: Sodium Chloride 0.9% 1,000 ML IV SCH (09:00)
[2021-04-29] MEDS: Phenytoin 100 MG Cap.ER PO SCH ×2 (09:07→20:21)
[2021-04-29] MEDS: Ziprasidone HCl 20 MG Cap PO SCH ×2 (09:08→20:21)
[2021-04-29] MEDS: Metoprolol Succinate 50 MG Tab.ER PO SCH (09:08)
[2021-04-29] MEDS: Folic Acid 1 MG Tab PO SCH (09:08)
[2021-04-29] MEDS: Citalopram 20 MG Tab PO SCH (09:08)
[2021-04-29] MEDS: cefTRIAXone 1 GM in Sodium Chloride 0.9% 100 ML IV SCH (20:29)
[2021-04-30] MEDS: Folic Acid 1 MG Tab PO SCH (08:48)
[2021-04-30] MEDS: Phenytoin 100 MG Cap.ER PO SCH ×2 (08:48→20:14)
[2021-04-30] MEDS: Metoprolol Succinate 50 MG Tab.ER PO SCH (08:48)
[2021-04-30] MEDS: Ziprasidone HCl 20 MG Cap PO SCH ×2 (08:51→20:13)
[2021-04-30] MEDS: Citalopram 20 MG Tab PO SCH (08:51)
[2021-04-30] MEDS ORDERED: Magnesium Sulfate/Water 4 GM in Premix Bag 1 BAG IV ONE (09:02)
--- NOTE | 2021-04-30 09:03 | PCM.PN ---
- General Info Date of Service: 04/30/21 Admission Dx/Problem (Free Text): Admission Diagnosis/Problem Admission Diagnosis/Problem Failure to thrive in adult Subjective Update: Patient is doing better today. She appears to be less confused. I spoke with daughter today who stated that she was started on warfarin in 2002 after her second CVA. Apparently they found a brain aneurysm and decided to put her on warfarin to prevent a clot in the aneurysm. Patient apparently was seen approximately 6 months ago, had some type of imaging, and the neurosurgeon stated that he did not see an aneurysm. Warfarin was not addressed. Functional Status: Reports: Pain Controlled - Review of Systems General: Reports: No Symptoms HEENT: Reports: No Symptoms Pulmonary: Reports: No Symptoms Cardiovascular: Reports: No Symptoms - Patient Data Vitals - Most Recent: Last Vital Signs Temp 98.2 F 04/30/21 03:00 Pulse 70 04/30/21 08:48 Resp 16 04/30/21 03:00 BP 159/79 H 04/30/21 08:48 Pulse Ox 95 04/30/21 06:54 Weight - Most Recent: 107 lb I&O - Last 24 Hours: Intake & Output 04/29/21 04/30/21 04/30/21 22:59 06:59 14:59 Intake Total 1480 812 Output Total 380 660 175 Balance 1100 152 -175 Lab Results Last 24 Hours: Laboratory Results - last 24 hr 04/28/21 04/29/21 04/30/21 Range/Units 19:20 10:24 04:58 WBC 5.75 (3.98-10.04) K/mm3 RBC 3.46 L (3.98-5.22) M/mm3 Hgb 10.2 L (11.2-15.7) gm/dl Hct 31.7 L (34.1-44.9) % MCV 91.6 (79.4-94.8) fl MCH 29.5 (25.6-32.2) pg MCHC 32.2 (32.2-35.5) g/dl RDW Std Deviation 50.3 H (36.4-46.3) fL Plt Count 233 (182-369) K/mm3 MPV 9.0 L (9.4-12.3) fl Neut % (Auto) 62.3 (34.0-71.1) % Lymph % (Auto) 22.8 (19.3-51.7) % [place] % (Auto) 13.9 H (4.7-12.5) % Eos % (Auto) 0.5 L (0.7-5.8) Baso % (Auto) 0.2 (0.1-1.2) % Neut # (Auto) 3.58 (1.56-6.13) K/mm3 Lymph # (Auto) 1.31 (1.18-3.74) K/mm3 [place] # (Auto) 0.80 H (0.24-0.36) K/mm3 Eos # (Auto) 0.03 L (0.04-0.36) K/mm3 Baso # (Auto) 0.01 (0.01-0.08) K/mm3 PT (9.7-12.0) SECONDS INR Sodium (136-145) mEq/L Potassium (3.5-5.1) mEq/L Chloride (98-107) mEq/L Carbon Dioxide (21-32) mEq/L Anion Gap (5-15) BUN (7-18) mg/dL Creatinine (0.55-1.02) mg/dL Est Cr Clr Drug Dosing mL/min Estimated GFR (MDRD) (>60) mL/min BUN/Creatinine Ratio (14-18) Glucose (70-99) mg/dL Calcium (8.5-10.1) mg/dL Magnesium (1.8-2.4) mg/dL Vitamin B12 558 (193-986) pg/ml Ur Squamous Epith Cells Not seen (0-5) /hpf 04/30/21 04/30/21 Range/Units 04:58 04:58 WBC (3.98-10.04) K/mm3 RBC (3.98-5.22) M/mm3 Hgb (11.2-15.7) gm/dl Hct (34.1-44.9) % MCV (79.4-94.8) fl MCH (25.6-32.2) pg MCHC (32.2-35.5) g/dl RDW Std Deviation (36.4-46.3) fL Plt Count (182-369) K/mm3 MPV (9.4-12.3) fl Neut % (Auto) (34.0-71.1) % Lymph % (Auto) (19.3-51.7) % [place] % (Auto) (4.7-12.5) % Eos % (Auto) (0.7-5.8) Baso % (Auto) (0.1-1.2) % Neut # (Auto) (1.56-6.13) K/mm3 Lymph # (Auto) (1.18-3.74) K/mm3 [place] # (Auto) (0.24-0.36) K/mm3 Eos # (Auto) (0.04-0.36) K/mm3 Baso # (Auto) (0.01-0.08) K/mm3 PT 13.3 H D (9.7-12.0) SECONDS INR 1.25 Sodium 138 (136-145) mEq/L Potassium 4.0 (3.5-5.1) mEq/L Chloride 106 (98-107) mEq/L Carbon Dioxide 22 (21-32) mEq/L Anion Gap 14.0 (5-15) BUN 11 (7-18) mg/dL Creatinine 0.9 (0.55-1.02) mg/dL Est Cr Clr Drug Dosing 40.74 mL/min Estimated GFR (MDRD) > 60 (>60) mL/min BUN/Creatinine Ratio 12.2 L (14-18) Glucose 83 (70-99) mg/dL Calcium 7.3 L (8.5-10.1) mg/dL Magnesium 1.5 L (1.8-2.4) mg/dL Vitamin B12 (193-986) pg/ml Ur Squamous Epith Cells (0-5) /hpf Med Orders - Current: Current Medications Acetaminophen (Acetaminophen 325 Mg Tab) 650 mg PO Q4H PRN PRN Reason: Pain (Mild 1-3)/fever Citalopram Hydrobromide (Citalopram 20 Mg Tab) 20 mg PO DAILY [facility] Last Admin: 04/30/21 08:51 Dose: 20 mg Documented by: Folic Acid (Folic Acid 1 Mg Tab) 1 mg PO DAILY [facility] Last Admin: 04/30/21 08:48 Dose: 1 mg Documented by: Ceftriaxone Sodium 1 gm/ (Sodium Chloride) 100 mls @ 200 mls/hr IV Q24H [facility] Last Admin: 04/29/21 20:29 Dose: 200 mls/hr Documented by: Magnesium Sulfate 4 gm/ Premix 50 mls @ 12.5 mls/hr IV ONETIME ONE Stop: 04/30/21 13:01 Metoprolol Succinate (Metoprolol Succinate 50 Mg Tab.Er) 100 mg PO DAILY [facility] Last Admin: 04/30/21 08:48 Dose: 100 mg Documented by: Ondansetron HCl (Ondansetron 4 Mg/2 Ml Sdv) 4 mg IV Q6H PRN PRN Reason: Nausea/Vomiting Phenytoin Sodium (Phenytoin 100 Mg Cap.Er) 100 mg PO BID [facility] Last Admin: 04/30/21 08:48 Dose: 100 mg Documented by: Warfarin Sodium (Pharmacy To Dose - Warfarin) 0 dose .XX ASDIRECTED PRN PRN Reason: RX TO DOSE WARFARIN Ziprasidone (Ziprasidone Hcl 20 Mg Cap) 40 mg PO BID [facility] Last Admin: 04/30/21 08:51 Dose: 40 mg Documented by: Discontinued Medications Sodium Chloride (Normal Saline) 1,000 mls @ 150 mls/hr IV NOW STA Stop: 04/29/21 00:19 Last Infusion: 04/28/21 22:15 Dose: 50 mls/hr Documented by: Ceftriaxone Sodium 2 gm/ (Sodium Chloride) 100 mls @ 200 mls/hr IV ONETIME ONE Stop: 04/28/21 20:17 Last Admin: 04/28/21 20:46 Dose: 200 mls/hr Documented by: Sodium Chloride (Normal Saline) 1,000 mls @ 50 mls/hr IV ASDIRECTED [facility] Last Admin: 04/29/21 03:44 Dose: 50 mls/hr Documented by: Sodium Chloride (Normal Saline) 1,000 mls @ 100 mls/hr IV ASDIRECTED [facility] Stop: 04/29/21 18:59 Last Admin: 04/29/21 17:55 Dose: 100 mls/hr Documented by: Phytonadione (Phytonadione Oral 2.5mg/2.5ml Soln Simple Syrup U/D) 2.5 mg PO ONETIME ONE Stop: 04/28/21 20:15 Last Admin: 04/28/21 20:46 Dose: 2.5 mg Documented by: Warfarin Sodium (Warfarin 1 Mg Tab) 0.5 mg PO QPM [facility] Stop: 04/29/21 18:01 Last Admin: 04/29/21 18:15 Dose: 0.5 mg Documented by: - Exam Quality Assessment: No: Supplemental Oxygen Urinary Catheter Total Time: 1Days 11Hours General: Alert. No: Oriented (Oriented to place but not time) HEENT: Pupils Equal, Mucous Membr. Moist/[place] Neck: Supple Lungs: Clear to Auscultation, Normal Respiratory Effort Cardiovascular: Regular Rate, Regular Rhythm GI/Abdominal Exam: Normal Bowel Sounds, Soft, Non-Tender, No Distention Extremities: Normal Inspection, Normal Range of Motion, Non-Tender, No Pedal Edema, Normal Capillary Refill Skin: Warm, Dry, Intact Psy/Mental Status: Alert, Normal Affect, Normal Mood - Patient Data Lab Results Last 24 hrs: Laboratory Results - last 24 hr 04/28/21 04/29/21 04/30/21 Range/Units 19:20 10:24 04:58 WBC 5.75 (3.98-10.04) K/mm3 RBC 3.46 L (3.98-5.22) M/mm3 Hgb 10.2 L (11.2-15.7) gm/dl Hct 31.7 L (34.1-44.9) % MCV 91.6 (79.4-94.8) fl MCH 29.5 (25.6-32.2) pg MCHC 32.2 (32.2-35.5) g/dl RDW Std Deviation 50.3 H (36.4-46.3) fL Plt Count 233 (182-369) K/mm3 MPV 9.0 L (9.4-12.3) fl Neut % (Auto) 62.3 (34.0-71.1) % Lymph % (Auto) 22.8 (19.3-51.7) % [place] % (Auto) 13.9 H (4.7-12.5) % Eos % (Auto) 0.5 L (0.7-5.8) Baso % (Auto) 0.2 (0.1-1.2) % Neut # (Auto) 3.58 (1.56-6.13) K/mm3 Lymph # (Auto) 1.31 (1.18-3.74) K/mm3 [place] # (Auto) 0.80 H (0.24-0.36) K/mm3 Eos # (Auto) 0.03 L (0.04-0.36) K/mm3 Baso # (Auto) 0.01 (0.01-0.08) K/mm3 PT (9.7-12.0) SECONDS INR Sodium (136-145) mEq/L Potassium (3.5-5.1) mEq/L Chloride (98-107) mEq/L Carbon Dioxide (21-32) mEq/L Anion Gap (5-15) BUN (7-18) mg/dL Creatinine (0.55-1.02) mg/dL Est Cr Clr Drug Dosing mL/min Estimated GFR (MDRD) (>60) mL/min BUN/Creatinine Ratio (14-18) Glucose (70-99) mg/dL Calcium (8.5-10.1) mg/dL Magnesium (1.8-2.4) mg/dL Vitamin B12 558 (193-986) pg/ml Ur Squamous Epith Cells Not seen (0-5) /hpf 04/30/21 04/30/21 Range/Units 04:58 04:58 WBC (3.98-10.04) K/mm3 RBC (3.98-5.22) M/mm3 Hgb (11.2-15.7) gm/dl Hct (34.1-44.9) % MCV (79.4-94.8) fl MCH (25.6-32.2) pg MCHC (32.2-35.5) g/dl RDW Std Deviation (36.4-46.3) fL Plt Count (182-369) K/mm3 MPV (9.4-12.3) fl Neut % (Auto) (34.0-71.1) % Lymph % (Auto) (19.3-51.7) % [place] % (Auto) (4.7-12.5) % Eos % (Auto) (0.7-5.8) Baso % (Auto) (0.1-1.2) % Neut # (Auto) (1.56-6.13) K/mm3 Lymph # (Auto) (1.18-3.74) K/mm3 [place] # (Auto) (0.24-0.36) K/mm3 Eos # (Auto) (0.04-0.36) K/mm3 Baso # (Auto) (0.01-0.08) K/mm3 PT 13.3 H D (9.7-12.0) SECONDS INR 1.25 Sodium 138 (136-145) mEq/L Potassium 4.0 (3.5-5.1) mEq/L Chloride 106 (98-107) mEq/L Carbon Dioxide 22 (21-32) mEq/L Anion Gap 14.0 (5-15) BUN 11 (7-18) mg/dL Creatinine 0.9 (0.55-1.02) mg/dL Est Cr Clr Drug Dosing 40.74 mL/min Estimated GFR (MDRD) > 60 (>60) mL/min BUN/Creatinine Ratio 12.2 L (14-18) Glucose 83 (70-99) mg/dL Calcium 7.3 L (8.5-10.1) mg/dL Magnesium 1.5 L (1.8-2.4) mg/dL Vitamin B12 (193-986) pg/ml Ur Squamous Epith Cells (0-5) /hpf Result Diagrams: 04/30/21 04:58 04/30/21 04:58 Sepsis Event Note - Evaluation Sepsis Screening Result: No Definite Risk - Focused Exam Vital Signs: Vital Signs Temp Pulse Pulse Resp BP BP Pulse Ox 04/30/21 08:48 70 159/79 H 04/30/21 06:54 95 04/30/21 03:00 98.2 F 77 16 128/70 95 - Problem List & Annotations (1) Failure to thrive SNOMED Code(s): 91996074 Code(s): QDH3176 - Status: Acute Priority: High Current Visit: Yes Qualifiers: Failure to thrive age range: in adult Qualified Code(s): R62.7 - Adult failure to thrive (2) Folic acid deficiency SNOMED Code(s): 949325352 Code(s): E53.8 - DEFICIENCY OF OTHER SPECIFIED B GROUP VITAMINS Status: Acute Priority: High Current Visit: Yes (3) Urinary tract infection SNOMED Code(s): 55365164 Code(s): N39.0 - URINARY TRACT INFECTION, SITE NOT SPECIFIED Status: Acute Priority: High Current Visit: Yes Qualifiers: Urinary tract infection type: acute cystitis Hematuria presence: with hematuria Qualified Code(s): N30.01 - Acute cystitis with hematuria - Problem List Review Problem List Initiated/Reviewed/Updated: Yes - My Orders Last 24 Hours: My Active Orders 04/29/21 Dinner Regular Diet [DIET] 04/30/21 09:02 Magnesium Sulfate/Water [Magnesium Sulfate in Water 4 GM/50 ML] 4 gm Premix Bag 1 bag IV ONETIME - Plan Plan:: Assessment - 04/29/2021 (admitted late 04/28/2021) * 75-year-old female who presents to ED accompanied by her daughter due to concerns of weakness and poor oral intake * History of: HLD, HTN, COPD, GERD, chronic renal sufficiency, osteoporosis, CVA, seizures, bipolar disorder, schizophrenia, dementia * Reportedly had declining ability to ambulate over the past 2 weeks * Had been utilizing a walker and now is wheelchair-bound * Has had multiple falls. * Lives at home with her * Daughter is concerned that she may have a urinary tract infection and is dehydrated * No known fevers, vomiting, diarrhea. * She does have baseline dementia which per the daughter is stable * History of CVA with no residual deficiency * On Coumadin for stroke prophylaxis. SARS-CoV-2 RNA is negative. * She is given 2 g Rocephin and started on IV fluids. She was given 2.5 mg vitamin K due to her high INR. 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 No acute intracranial hemorrhage is noted. * Chest x-ray is obtained showing acute fracture within the anterior lateral left fifth rib and to subacute fractures within the right ribs. Other findings are noted which are nonacute. * She is subsequently admitted to the ICU as a medical floor overflow for management of her UTI and failure to thrive. PLAN: Urinary tract infection * Rocephin 1mg daily * IV fluids as ordered * Daily labs * Pulmonary urine culture staph species * Await blood cultures Left rib fracture Multiple falls Failure to thrive Weakness Osteoporosis * PT/OT * CM/SW for discharge planning * Pain medications as ordered * Check TSH (WNL) * Check Vitamin D (WNL) * Check Folic acid (low) * Check B12 (WNL) Folic acid deficiency * ? Cause of symptoms * Supplement * PCP follow-up Supratherapeutic INR Chronic anticoagulation Brain aneurysm * Vitamin K given in ED * Hold warfarin during hospitalization. * PCP follow-up Bipolar disorder Schizophrenia Dementia * Continue home psychiatric meds as ordered * Psychiatric consultation (Dr. Booker) to review medications * ? medication cause of above symptoms * Let patient sleep protocol Hyponatremia -resolved * IV fluids stopped * Monitor labs HLD (hyperlipidemia) * No acute concerns * Hold home statin COPD (chronic obstructive pulmonary disease) * No home respiratory meds * O2 as needed with saturation goal of >90% * No acute concerns GERD (gastroesophageal reflux disease) * No acute concerns CKD (chronic kidney disease) * IV fluids as above * Monitor daily labs History of CVA (cerebrovascular accident) History of seizures * No acute concerns * Continue home seizure meds * Check phenytoin level Hypertension * Monitor vital signs * No acute concerns * Continue home BP meds as ordered Code status: Full code PCP: Dr. Adams DVT prohylaxis: Lovenox Social: Patient lives at home with Disposition: Patient mated to medical floor for treatment of UTI and further work-up of failure to thrive including PT/OT evaluation. Likely length of stay 3 to 4 days.
[2021-04-30] MEDS: cefTRIAXone 1 GM in Sodium Chloride 0.9% 100 ML IV SCH ×2 (20:11→23:27)
[2021-05-01] MEDS ORDERED: Enoxaparin 40 MG/0.4 ML Syringe SUBCUT SCH (09:00)
[2021-05-01] MEDS: Citalopram 20 MG Tab PO SCH (09:07)
[2021-05-01] MEDS: Folic Acid 1 MG Tab PO SCH (09:07)
[2021-05-01] MEDS: Metoprolol Succinate 50 MG Tab.ER PO SCH (09:07)
[2021-05-01] MEDS: Phenytoin 100 MG Cap.ER PO SCH ×2 (09:07→21:53)
[2021-05-01] MEDS: Ziprasidone HCl 20 MG Cap PO SCH ×2 (09:08→21:53)
--- NOTE | 2021-05-01 15:46 | PCM.PN ---
- General Info Date of Service: 05/01/21 - Review of Systems Systems Review Comment:: No new complaints. Pt is weak. She is not eating much of anything. - Patient Data Vitals - Most Recent: Last Vital Signs Temp 98.1 F 05/01/21 09:03 Pulse 75 05/01/21 09:07 Resp 20 05/01/21 09:03 BP 152/84 H 05/01/21 09:07 Pulse Ox 93 L 05/01/21 09:03 Weight - Most Recent: 106 lb 6.4 oz I&O - Last 24 Hours: Intake & Output 05/01/21 05/01/21 05/01/21 06:59 14:59 22:59 Intake Total 400 Output Total 800 Balance -400 Lab Results Last 24 Hours: Laboratory Results - last 24 hr 05/01/21 05/01/21 Range/Units 05:44 05:44 WBC 5.42 (3.98-10.04) K/mm3 RBC 3.55 L (3.98-5.22) M/mm3 Hgb 10.6 L (11.2-15.7) gm/dl Hct 32.5 L (34.1-44.9) % MCV 91.5 (79.4-94.8) fl MCH 29.9 (25.6-32.2) pg MCHC 32.6 (32.2-35.5) g/dl RDW Std Deviation 50.3 H (36.4-46.3) fL Plt Count 215 (182-369) K/mm3 MPV 9.0 L (9.4-12.3) fl Neut % (Auto) 60.8 (34.0-71.1) % Lymph % (Auto) 21.6 (19.3-51.7) % [place] % (Auto) 15.5 H (4.7-12.5) % Eos % (Auto) 1.7 (0.7-5.8) Baso % (Auto) 0.2 (0.1-1.2) % Neut # (Auto) 3.30 (1.56-6.13) K/mm3 Lymph # (Auto) 1.17 L (1.18-3.74) K/mm3 [place] # (Auto) 0.84 H (0.24-0.36) K/mm3 Eos # (Auto) 0.09 (0.04-0.36) K/mm3 Baso # (Auto) 0.01 (0.01-0.08) K/mm3 Sodium 136 (136-145) mEq/L Potassium 3.9 (3.5-5.1) mEq/L Chloride 105 (98-107) mEq/L Carbon Dioxide 26 (21-32) mEq/L Anion Gap 8.9 (5-15) BUN 10 (7-18) mg/dL Creatinine 0.8 (0.55-1.02) mg/dL Est Cr Clr Drug Dosing 45.84 mL/min Estimated GFR (MDRD) > 60 (>60) mL/min BUN/Creatinine Ratio 12.5 L (14-18) Glucose 88 (70-99) mg/dL Calcium 7.8 L (8.5-10.1) mg/dL Magnesium 2.2 (1.8-2.4) mg/dL Ej Results Last 24 Hours: Microbiology 04/28/21 19:20 Urine Culture - Preliminary Urine Staphylococcus Lugdunensis Med Orders - Current: Current Medications Acetaminophen (Acetaminophen 325 Mg Tab) 650 mg PO Q4H PRN PRN Reason: Pain (Mild 1-3)/fever Citalopram Hydrobromide (Citalopram 20 Mg Tab) 20 mg PO DAILY [facility] Last Admin: 05/01/21 09:07 Dose: 20 mg Documented by: Enoxaparin Sodium (Enoxaparin 40 Mg/0.4 Ml Syringe) 40 mg SUBCUT DAILY [facility] Last Admin: 05/01/21 09:08 Dose: 40 mg Documented by: Folic Acid (Folic Acid 1 Mg Tab) 1 mg PO DAILY [facility] Last Admin: 05/01/21 09:07 Dose: 1 mg Documented by: Ceftriaxone Sodium 1 gm/ (Sodium Chloride) 100 mls @ 200 mls/hr IV Q24H [facility] Last Admin: 04/30/21 23:27 Dose: Not Given Documented by: Metoprolol Succinate (Metoprolol Succinate 50 Mg Tab.Er) 100 mg PO DAILY [facility] Last Admin: 05/01/21 09:07 Dose: 100 mg Documented by: Ondansetron HCl (Ondansetron 4 Mg/2 Ml Sdv) 4 mg IV Q6H PRN PRN Reason: Nausea/Vomiting Phenytoin Sodium (Phenytoin 100 Mg Cap.Er) 100 mg PO BID [facility] Last Admin: 05/01/21 09:07 Dose: 100 mg Documented by: Ziprasidone (Ziprasidone Hcl 20 Mg Cap) 40 mg PO BID [facility] Last Admin: 05/01/21 09:08 Dose: 40 mg Documented by: Discontinued Medications Sodium Chloride (Normal Saline) 1,000 mls @ 150 mls/hr IV NOW STA Stop: 04/29/21 00:19 Last Infusion: 04/28/21 22:15 Dose: 50 mls/hr Documented by: Ceftriaxone Sodium 2 gm/ (Sodium Chloride) 100 mls @ 200 mls/hr IV ONETIME ONE Stop: 04/28/21 20:17 Last Admin: 04/28/21 20:46 Dose: 200 mls/hr Documented by: Sodium Chloride (Normal Saline) 1,000 mls @ 50 mls/hr IV ASDIRECTED [facility] Last Admin: 04/29/21 03:44 Dose: 50 mls/hr Documented by: Sodium Chloride (Normal Saline) 1,000 mls @ 100 mls/hr IV ASDIRECTED [facility] Stop: 04/29/21 18:59 Last Admin: 04/29/21 17:55 Dose: 100 mls/hr Documented by: Magnesium Sulfate 4 gm/ Premix 50 mls @ 12.5 mls/hr IV ONETIME ONE Stop: 04/30/21 13:01 Last Admin: 04/30/21 09:45 Dose: 12.5 mls/hr Documented by: Phytonadione (Phytonadione Oral 2.5mg/2.5ml Soln Simple Syrup U/D) 2.5 mg PO ONETIME ONE Stop: 04/28/21 20:15 Last Admin: 04/28/21 20:46 Dose: 2.5 mg Documented by: Warfarin Sodium (Pharmacy To Dose - Warfarin) 0 dose .XX ASDIRECTED PRN PRN Reason: RX TO DOSE WARFARIN Warfarin Sodium (Warfarin 1 Mg Tab) 0.5 mg PO QPM [facility] Stop: 04/29/21 18:01 Last Admin: 04/29/21 18:15 Dose: 0.5 mg Documented by: Warfarin Sodium (Warfarin 1 Mg Tab) 2 mg PO QPM [facility] Stop: 04/30/21 21:00 - Exam Urinary Catheter Total Time: 2Days 13Hours Physical Findings Comments:: General: Frail elderly female. Looks much older than stated age. Pt has a lot of muscle wasting. CVS: S1S2 appreciated. RRR lungs: clear with no rales or wheezes. pa: soft, non tender. Bowel sounds present ext: no clubbing, cyanosis or edema neuro: diffuse muscle weakness. psych: difficult to examine. Flat affect. Impaired judgement. - Patient Data Lab Results Last 24 hrs: Laboratory Results - last 24 hr 05/01/21 05/01/21 Range/Units 05:44 05:44 WBC 5.42 (3.98-10.04) K/mm3 RBC 3.55 L (3.98-5.22) M/mm3 Hgb 10.6 L (11.2-15.7) gm/dl Hct 32.5 L (34.1-44.9) % MCV 91.5 (79.4-94.8) fl MCH 29.9 (25.6-32.2) pg MCHC 32.6 (32.2-35.5) g/dl RDW Std Deviation 50.3 H (36.4-46.3) fL Plt Count 215 (182-369) K/mm3 MPV 9.0 L (9.4-12.3) fl Neut % (Auto) 60.8 (34.0-71.1) % Lymph % (Auto) 21.6 (19.3-51.7) % [place] % (Auto) 15.5 H (4.7-12.5) % Eos % (Auto) 1.7 (0.7-5.8) Baso % (Auto) 0.2 (0.1-1.2) % Neut # (Auto) 3.30 (1.56-6.13) K/mm3 Lymph # (Auto) 1.17 L (1.18-3.74) K/mm3 [place] # (Auto) 0.84 H (0.24-0.36) K/mm3 Eos # (Auto) 0.09 (0.04-0.36) K/mm3 Baso # (Auto) 0.01 (0.01-0.08) K/mm3 Sodium 136 (136-145) mEq/L Potassium 3.9 (3.5-5.1) mEq/L Chloride 105 (98-107) mEq/L Carbon Dioxide 26 (21-32) mEq/L Anion Gap 8.9 (5-15) BUN 10 (7-18) mg/dL Creatinine 0.8 (0.55-1.02) mg/dL Est Cr Clr Drug Dosing 45.84 mL/min Estimated GFR (MDRD) > 60 (>60) mL/min BUN/Creatinine Ratio 12.5 L (14-18) Glucose 88 (70-99) mg/dL Calcium 7.8 L (8.5-10.1) mg/dL Magnesium 2.2 (1.8-2.4) mg/dL Result Diagrams: 05/01/21 05:44 05/01/21 05:44 Ej Results Last 24 hrs: Microbiology 04/28/21 19:20 Urine Culture - Preliminary Urine Staphylococcus Lugd[place]ensis Sepsis Event Note - Evaluation Sepsis Screening Result: No Definite Risk - Focused Exam Vital Signs: Vital Signs Temp Pulse Resp BP Pulse Ox 05/01/21 09:07 75 152/84 H 05/01/21 09:03 98.1 F 75 20 152/84 H 93 L 05/01/21 04:34 97.9 F 71 17 128/78 94 L - Problem List & Annotations (1) Failure to thrive SNOMED Code(s): 13614246 Code(s): OCP9498 - Status: Acute Priority: High Current Visit: Yes Qualifiers: Failure to thrive age range: in adult Qualified Code(s): R62.7 - Adult failure to thrive (2) Generalized weakness SNOMED Code(s): 50334187 Code(s): R53.1 - WEAKNESS Status: Acute Current Visit: Yes (3) Schizophrenia SNOMED Code(s): 42829960 Code(s): F20.9 - SCHIZOPHRENIA, UNSPECIFIED Status: Acute Current Visit: Yes (4) Multiple falls SNOMED Code(s): 195164607 Code(s): R29.6 - REPEATED FALLS Status: Acute Priority: High Current Visit: Yes (5) Urinary tract infection SNOMED Code(s): 43176477 Code(s): N39.0 - URINARY TRACT INFECTION, SITE NOT SPECIFIED Status: Acute Priority: High Current Visit: Yes Qualifiers: Urinary tract infection type: acute cystitis Hematuria presence: with hematuria Qualified Code(s): N30.01 - Acute cystitis with hematuria (6) Supratherapeutic INR SNOMED Code(s): 801091189 Code(s): R79.1 - ABNORMAL COAGULATION PROFILE Status: Acute Priority: High Current Visit: Yes - Problem List Review Problem List Initiated/Reviewed/Updated: Yes - My Orders Last 24 Hours: My Active Orders 05/01/21 09:55 Renew/Continue Urinary Catheter [OM.PC] Routine - Plan Plan:: Assessment - 04/29/2021 (admitted late 04/28/2021) * 75-year-old female who presents to ED accompanied by her daughter due to concerns of weakness and poor oral intake * History of: HLD, HTN, COPD, GERD, chronic renal sufficiency, osteoporosis, CVA, seizures, bipolar disorder, schizophrenia, dementia * Reportedly had declining ability to ambulate over the past 2 weeks * Had been utilizing a walker and now is wheelchair-bound * Has had multiple falls. * Lives at home with her * Daughter is concerned that she may have a urinary tract infection and is d ehydrated * No known fevers, vomiting, diarrhea. * She does have baseline dementia which per the daughter is stable * History of CVA with no residual deficiency * On Coumadin for stroke prophylaxis. SARS-CoV-2 RNA is negative. * She is given 2 g Rocephin and started on IV fluids. She was given 2.5 mg vitamin K due to her high INR. 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 No acute intracranial hemorrhage is noted. * Chest x-ray is obtained showing acute fracture within the anterior lateral left fifth rib and to subacute fractures within the right ribs. Other findings are noted which are nonacute. * She is subsequently admitted to the ICU as a medical floor overflow for management of her UTI and failure to thrive. PLAN: Urinary tract infection * Rocephin 1mg daily * IV fluids as ordered * Daily labs * Pulmonary urine culture staph species * Await blood cultures Left rib fracture Multiple falls Failure to thrive Weakness Osteoporosis * PT/OT * CM/SW for discharge planning * Pain medications as ordered * Check TSH (WNL) * Check Vitamin D (WNL) * Check Folic acid (low) * Check B12 (WNL) Folic acid deficiency- likely due to nutritional deficiency and poor oral intake * ? Cause of symptoms * Supplement * PCP follow-up Supratherapeutic INR - holding coumadin Chronic anticoagulation Brain aneurysm * Vitamin K given in ED * Hold warfarin during hospitalization. * PCP follow-up Bipolar disorder Schizophrenia Dementia * Continue home psychiatric meds as ordered * Psychiatric consultation (Dr. Booker) to review medications * ? medication cause of above symptoms * Let patient sleep protocol Hyponatremia -resolved * IV fluids stopped * Monitor labs HLD (hyperlipidemia) * No acute concerns * Hold home statin COPD (chronic obstructive pulmonary disease) * No home respiratory meds * O2 as needed with saturation goal of >90% * No acute concerns GERD (gastroesophageal reflux disease) * No acute concerns CKD (chronic kidney disease) * IV fluids as above * Monitor daily labs History of CVA (cerebrovascular accident) History of seizures * No acute concerns * Continue home seizure meds * Check phenytoin level Hypertension * Monitor vital signs * No acute concerns * Continue home BP meds as ordered Code status: Full code PCP: Dr. Bryan SALVADOR prohylaxis: Lovenox Social: Patient lives at home with Disposition: Patient mated to medical floor for treatment of UTI and further work-up of failure to thrive including PT/OT evaluation. Likely length of stay 3 to 4 days. Given her poor overall status, she will need a SNF discharge. Her prognosis remains guarded. I will try an appetite stimulant and see if that helps with her intake.
[2021-05-01] MEDS: Enoxaparin 30 MG/0.3 ML Syringe SUBCUT SCH (17:12)
[2021-05-01] MEDS: cefTRIAXone 1 GM in Sodium Chloride 0.9% 100 ML IV SCH (21:54)
[2021-05-02] MEDS: Citalopram 20 MG Tab PO SCH (08:51)
[2021-05-02] MEDS: Metoprolol Succinate 50 MG Tab.ER PO SCH (08:51)
[2021-05-02] MEDS: Ziprasidone HCl 20 MG Cap PO SCH ×2 (08:51→21:18)
[2021-05-02] MEDS: Folic Acid 1 MG Tab PO SCH (08:51)
[2021-05-02] MEDS: Phenytoin 100 MG Cap.ER PO SCH ×2 (08:51→21:18)
[2021-05-02] MEDS: Enoxaparin 30 MG/0.3 ML Syringe SUBCUT SCH (08:52)
--- NOTE | 2021-05-02 09:01 | PCM.PN ---
<Karan Logan - Last Filed: 05/02/21 11:38> - General Info Date of Service: 05/02/21 Admission Dx/Problem (Free Text): Admission Diagnosis/Problem Admission Diagnosis/Problem Failure to thrive in adult Functional Status: Reports: Pain Controlled, Tolerating Diet, Ambulating, Urinating. Denies: New Symptoms - Review of Systems General: Reports: Weakness, Fatigue. Denies: Fever, Malaise, Chills HEENT: Reports: No Symptoms. Denies: Headaches, Sore Throat Pulmonary: Reports: No Symptoms. Denies: Shortness of Breath, Cough, Sputum Cardiovascular: Reports: No Symptoms. Denies: Palpitations, Dyspnea on Exertion, Lightheadedness Gastrointestinal: Reports: No Symptoms. Denies: Abdominal Pain, Constipation, Diarrhea, Nausea, Vomiting Genitourinary: Reports: No Symptoms. Denies: Pain Musculoskeletal: Reports: No Symptoms Skin: Reports: No Symptoms. Denies: Cyanosis Neurological: Reports: Confusion, Pre-Existing Deficit (Schizophrenia, bipolar disorder), Difficulty Walking, Weakness, Gait Disturbance. Denies: Dizziness, Headache, Numbness, Seizure, Syncope, Tingling Psychiatric: Reports: No Symptoms - Patient Data Vitals - Most Recent: Last Vital Signs Temp 97.9 F 05/02/21 04:20 Pulse 77 05/02/21 08:51 Resp 12 05/02/21 04:20 BP 155/91 H 05/02/21 08:51 Pulse Ox 95 05/02/21 04:20 Weight - Most Recent: 106 lb 3.2 oz I&O - Last 24 Hours: Intake & Output 05/01/21 05/02/21 05/02/21 22:59 06:59 14:59 Intake Total 1340 400 Output Total 250 650 Balance 1090 -250 Lab Results Last 24 Hours: Laboratory Results - last 24 hr 05/02/21 05/02/21 Range/Units 05:30 05:35 WBC 4.66 (3.98-10.04) K/mm3 RBC 3.53 L (3.98-5.22) M/mm3 Hgb 10.5 L (11.2-15.7) gm/dl Hct 32.1 L (34.1-44.9) % MCV 90.9 (79.4-94.8) fl MCH 29.7 (25.6-32.2) pg MCHC 32.7 (32.2-35.5) g/dl RDW Std Deviation 49.7 H (36.4-46.3) fL Plt Count 212 (182-369) K/mm3 MPV 9.1 L (9.4-12.3) fl Neut % (Auto) 56.4 (34.0-71.1) % Lymph % (Auto) 26.4 (19.3-51.7) % [place] % (Auto) 15.7 H (4.7-12.5) % Eos % (Auto) 1.1 (0.7-5.8) Baso % (Auto) 0.2 (0.1-1.2) % Neut # (Auto) 2.63 (1.56-6.13) K/mm3 Lymph # (Auto) 1.23 (1.18-3.74) K/mm3 [place] # (Auto) 0.73 H (0.24-0.36) K/mm3 Eos # (Auto) 0.05 (0.04-0.36) K/mm3 Baso # (Auto) 0.01 (0.01-0.08) K/mm3 Sodium 134 L (136-145) mEq/L Potassium 3.9 (3.5-5.1) mEq/L Chloride 101 (98-107) mEq/L Carbon Dioxide 29 (21-32) mEq/L Anion Gap 7.9 (5-15) BUN 8 (7-18) mg/dL Creatinine 0.7 (0.55-1.02) mg/dL Est Cr Clr Drug Dosing 51.99 mL/min Estimated GFR (MDRD) > 60 (>60) mL/min BUN/Creatinine Ratio 11.4 L (14-18) Glucose 95 (70-99) mg/dL Calcium 7.6 L (8.5-10.1) mg/dL Magnesium 1.7 L (1.8-2.4) mg/dL Ej Results Last 24 Hours: Microbiology 04/28/21 19:20 Urine Culture - Preliminary Urine Staphylococcus Lugdunensis Med Orders - Current: Current Medications Acetaminophen (Acetaminophen 325 Mg Tab) 650 mg PO Q4H PRN PRN Reason: Pain (Mild 1-3)/fever Citalopram Hydrobromide (Citalopram 20 Mg Tab) 20 mg PO DAILY [facility] Last Admin: 05/02/21 08:51 Dose: 20 mg Documented by: Enoxaparin Sodium (Enoxaparin 30 Mg/0.3 Ml Syringe) 30 mg SUBCUT DAILY [facility] Last Admin: 05/02/21 08:52 Dose: 30 mg Documented by: Folic Acid (Folic Acid 1 Mg Tab) 1 mg PO DAILY [facility] Last Admin: 05/02/21 08:51 Dose: 1 mg Documented by: Ceftriaxone Sodium 1 gm/ (Sodium Chloride) 100 mls @ 200 mls/hr IV Q24H [facility] Last Admin: 05/01/21 21:54 Dose: 200 mls/hr Documented by: Metoprolol Succinate (Metoprolol Succinate 50 Mg Tab.Er) 100 mg PO DAILY [facility] Last Admin: 05/02/21 08:51 Dose: 100 mg Documented by: Ondansetron HCl (Ondansetron 4 Mg/2 Ml Sdv) 4 mg IV Q6H PRN PRN Reason: Nausea/Vomiting Phenytoin Sodium (Phenytoin 100 Mg Cap.Er) 100 mg PO BID [facility] Last Admin: 05/02/21 08:51 Dose: 100 mg Documented by: Ziprasidone (Ziprasidone Hcl 20 Mg Cap) 40 mg PO BID [facility] Last Admin: 05/02/21 08:51 Dose: 40 mg Documented by: Discontinued Medications Enoxaparin Sodium (Enoxaparin 40 Mg/0.4 Ml Syringe) 40 mg SUBCUT DAILY [facility] Last Admin: 05/01/21 09:08 Dose: 40 mg Documented by: Sodium Chloride (Normal Saline) 1,000 mls @ 150 mls/hr IV NOW STA Stop: 04/29/21 00:19 Last Infusion: 04/28/21 22:15 Dose: 50 mls/hr Documented by: Ceftriaxone Sodium 2 gm/ (Sodium Chloride) 100 mls @ 200 mls/hr IV ONETIME ONE Stop: 04/28/21 20:17 Last Admin: 04/28/21 20:46 Dose: 200 mls/hr Documented by: Sodium Chloride (Normal Saline) 1,000 mls @ 50 mls/hr IV ASDIRECTED [facility] Last Admin: 04/29/21 03:44 Dose: 50 mls/hr Documented by: Sodium Chloride (Normal Saline) 1,000 mls @ 100 mls/hr IV ASDIRECTED [facility] Stop: 04/29/21 18:59 Last Admin: 04/29/21 17:55 Dose: 100 mls/hr Documented by: Magnesium Sulfate 4 gm/ Premix 50 mls @ 12.5 mls/hr IV ONETIME ONE Stop: 04/30/21 13:01 Last Admin: 04/30/21 09:45 Dose: 12.5 mls/hr Documented by: Phytonadione (Phytonadione Oral 2.5mg/2.5ml Soln Simple Syrup U/D) 2.5 mg PO ONETIME ONE Stop: 04/28/21 20:15 Last Admin: 04/28/21 20:46 Dose: 2.5 mg Documented by: Warfarin Sodium (Pharmacy To Dose - Warfarin) 0 dose .XX ASDIRECTED PRN PRN Reason: RX TO DOSE WARFARIN Warfarin Sodium (Warfarin 1 Mg Tab) 0.5 mg PO QPM [facility] Stop: 04/29/21 18:01 Last Admin: 04/29/21 18:15 Dose: 0.5 mg Documented by: Warfarin Sodium (Warfarin 1 Mg Tab) 2 mg PO QPM [facility] Stop: 04/30/21 21:00 - Exam Quality Assessment: Supplemental Oxygen, DVT Prophylaxis. No: Urine Catheter (Removed today ) Urinary Catheter Total Time: 3Days 9Hours General: Alert, Cooperative, No Acute Distress HEENT: Pupils Equal, Pupils Reactive, Mucous Membr. Moist/[place] Neck: Supple, Trachea Midline Lungs: Clear to Auscultation, Normal Respiratory Effort Cardiovascular: Regular Rate, Regular Rhythm GI/Abdominal Exam: Normal Bowel Sounds, Soft, Non-Tender, No Distention (Female) Exam: Deferred Back Exam: Normal Inspection, Full Range of Motion Extremities: Normal Inspection, Normal Range of Motion, Non-Tender, No Pedal Edema, Normal Capillary Refill Peripheral Pulses: 2+: Radial (L), Radial (R), Dorsalis Pedis (L), Dorsalis Pedis (R) Skin: Warm, Dry, Intact Neurological: No New Focal Deficit Psy/Mental Status: Alert - Patient Data Lab Results Last 24 hrs: Laboratory Results - last 24 hr 05/02/21 05/02/21 Range/Units 05:30 05:35 WBC 4.66 (3.98-10.04) K/mm3 RBC 3.53 L (3.98-5.22) M/mm3 Hgb 10.5 L (11.2-15.7) gm/dl Hct 32.1 L (34.1-44.9) % MCV 90.9 (79.4-94.8) fl MCH 29.7 (25.6-32.2) pg MCHC 32.7 (32.2-35.5) g/dl RDW Std Deviation 49.7 H (36.4-46.3) fL Plt Count 212 (182-369) K/mm3 MPV 9.1 L (9.4-12.3) fl Neut % (Auto) 56.4 (34.0-71.1) % Lymph % (Auto) 26.4 (19.3-51.7) % [place] % (Auto) 15.7 H (4.7-12.5) % Eos % (Auto) 1.1 (0.7-5.8) Baso % (Auto) 0.2 (0.1-1.2) % Neut # (Auto) 2.63 (1.56-6.13) K/mm3 Lymph # (Auto) 1.23 (1.18-3.74) K/mm3 [place] # (Auto) 0.73 H (0.24-0.36) K/mm3 Eos # (Auto) 0.05 (0.04-0.36) K/mm3 Baso # (Auto) 0.01 (0.01-0.08) K/mm3 Sodium 134 L (136-145) mEq/L Potassium 3.9 (3.5-5.1) mEq/L Chloride 101 (98-107) mEq/L Carbon Dioxide 29 (21-32) mEq/L Anion Gap 7.9 (5-15) BUN 8 (7-18) mg/dL Creatinine 0.7 (0.55-1.02) mg/dL Est Cr Clr Drug Dosing 51.99 mL/min Estimated GFR (MDRD) > 60 (>60) mL/min BUN/Creatinine Ratio 11.4 L (14-18) Glucose 95 (70-99) mg/dL Calcium 7.6 L (8.5-10.1) mg/dL Magnesium 1.7 L (1.8-2.4) mg/dL Result Diagrams: 05/02/21 05:30 05/02/21 05:35 Ej Results Last 24 hrs: Microbiology 04/28/21 19:20 Urine Culture - Preliminary Urine Staphylococcus Lugdunensis Sepsis Event Note - Evaluation Sepsis Screening Result: No Definite Risk - Focused Exam Vital Signs: Vital Signs Temp Pulse Resp BP BP Pulse Ox 05/02/21 08:51 77 155/91 H 05/02/21 04:20 97.9 F 81 12 147/79 H 95 05/01/21 21:48 98.1 F 71 13 100/52 L 94 L - Problem List & Annotations (1) HLD (hyperlipidemia) SNOMED Code(s): 08925328 Code(s): E78.5 - HYPERLIPIDEMIA, UNSPECIFIED Status: Chronic Priority: Low Current Visit: No Qualifiers: Hyperlipidemia type: unspecified Qualified Code(s): E78.5 - Hyperlipidemia, unspecified (2) COPD (chronic obstructive pulmonary disease) SNOMED Code(s): 84691235 Code(s): J44.9 - CHRONIC OBSTRUCTIVE PULMONARY DISEASE, UNSPECIFIED Status: Chronic Priority: Low Current Visit: No Qualifiers: COPD type: unspecified COPD Qualified Code(s): J44.9 - Chronic obstructive pulmonary disease, unspecified (3) GERD (gastroesophageal reflux disease) SNOMED Code(s): 581985281 Code(s): K21.9 - GASTRO-ESOPHAGEAL REFLUX DISEASE WITHOUT ESOPHAGITIS Status: Chronic Priority: Low Current Visit: No Qualifiers: Esophagitis presence: esophagitis presence not specified Qualified Code(s): K21.9 - Gastro-esophageal reflux disease without esophagitis (4) CKD (chronic kidney disease) SNOMED Code(s): 375920987 Code(s): N18.9 - CHRONIC KIDNEY DISEASE, UNSPECIFIED Status: Chronic Priority: Medium Current Visit: Yes Qualifiers: Chronic kidney disease stage: stage 3 (moderate) Chronic kidney disease stage 3 subtype: stage 3b (GFR 30-44) Qualified Code(s): N18.32 - Chronic kidney disease, stage 3b (5) Osteoporosis SNOMED Code(s): 81163325 Code(s): M81.0 - AGE-RELATED OSTEOPOROSIS W/O CURRENT PATHOLOGICAL FRACTURE Status: Chronic Priority: Low Current Visit: No Qualifiers: Osteoporosis type: unspecified Presence of current pathological fracture: unspecified Qualified Code(s): M81.0 - Age-related osteoporosis without current pathological fracture (6) Bipolar disorder SNOMED Code(s): 95895738 Code(s): F31.9 - BIPOLAR DISORDER, UNSPECIFIED Status: Chronic Priority: Medium Current Visit: Yes Qualifiers: Active/Remission status: remission status unspecified Qualified Code(s): F31.9 - Bipolar disorder, unspecified (7) Left rib fracture SNOMED Code(s): 30915999 Code(s): S22.32XA - FRACTURE OF ONE RIB, LEFT SIDE, INIT FOR CLOS FX Status: Acute Priority: Medium Current Visit: Yes Qualifiers: Encounter type: initial encounter Rib fracture type: single rib Fracture type: closed Qualified Code(s): S22.32XA - Fracture of one rib, left side, initial encounter for closed fracture (8) Multiple falls SNOMED Code(s): 999078324 Code(s): R29.6 - REPEATED FALLS Status: Acute Priority: High Current Visit: Yes (9) Weakness SNOMED Code(s): 82182374 Code(s): R53.1 - WEAKNESS Status: Acute Priority: High Current Visit: Yes (10) Supratherapeutic INR SNOMED Code(s): 785511142 Code(s): R79.1 - ABNORMAL COAGULATION PROFILE Status: Acute Priority: High Current Visit: Yes (11) Hyponatremia SNOMED Code(s): 38722243 Code(s): E87.1 - HYPO-OSMOLALITY AND HYPONATREMIA Status: Acute Priority: High Current Visit: Yes (12) Failure to thrive SNOMED Code(s): 09648810 Code(s): HJB0515 - Status: Acute Priority: High Current Visit: Yes Qualifiers: Failure to thrive age range: in adult Qualified Code(s): R62.7 - Adult fa ilure to thrive (13) Urinary tract infection SNOMED Code(s): 10771997 Code(s): N39.0 - URINARY TRACT INFECTION, SITE NOT SPECIFIED Status: Acute Priority: High Current Visit: Yes Qualifiers: Urinary tract infection type: acute cystitis Hematuria presence: with hematuria Qualified Code(s): N30.01 - Acute cystitis with hematuria (14) Chronic anticoagulation SNOMED Code(s): 771783188 Code(s): Z79.01 - HOTSHOT SUPERINTENDENT (CURRENT) USE OF ANTICOAGULANTS Status: Chronic Priority: High Current Visit: Yes (15) History of CVA (cerebrovascular accident) SNOMED Code(s): 202011011 Code(s): Z86.73 - PRSNL HX OF TIA (TIA), AND CEREB INFRC W/O RESID DEFICITS Status: Chronic Priority: Medium Current Visit: No (16) History of seizures SNOMED Code(s): 430515517 Code(s): Z87.898 - PERSONAL HISTORY OF OTHER SPECIFIED CONDITIONS Status: Chronic Priority: Medium Current Visit: No (17) Hypertension SNOMED Code(s): 70177288 Code(s): I10 - ESSENTIAL (PRIMARY) HYPERTENSION Status: Chronic Priority: Medium Current Visit: No Qualifiers: Hypertension type: unspecified Qualified Code(s): I10 - Essential (primary) hypertension (18) Schizophrenia SNOMED Code(s): 20932493 Code(s): F20.9 - SCHIZOPHRENIA, UNSPECIFIED Status: Chronic Priority: Medium Current Visit: No Qualifiers: Schizophrenia type: unspecified Qualified Code(s): F20.9 - Schizophrenia, unspecified (19) Folic acid deficiency SNOMED Code(s): 824835386 Code(s): E53.8 - DEFICIENCY OF OTHER SPECIFIED B GROUP VITAMINS Status: Acute Priority: High Current Visit: Yes (20) Dementia SNOMED Code(s): 24191725 Code(s): F03.90 - UNSPECIFIED DEMENTIA WITHOUT BEHAVIORAL DISTURBANCE Status: Chronic Priority: High Current Visit: Yes Qualifiers: Dementia type: unspecified type Dementia behavioral disturbance: without behavioral disturbance Qualified Code(s): F03.90 - Unspecified dementia without behavioral disturbance (21) Hypomagnesemia SNOMED Code(s): 251884341 Code(s): E83.42 - HYPOMAGNESEMIA Status: Acute Priority: High Current Visit: Yes - Problem List Review Problem List Initiated/Reviewed/Updated: Yes - My Orders Last 24 Hours: My Active Orders 05/02/21 08:51 DC Brito Catheter [Urinary Catheter Removal] [RC] PER UNIT ROUTINE 05/03/21 05:11 BASIC METABOLIC PANEL,BMP [CHEM] AM CBC WITH AUTO DIFF [HEME] AM MAGNESIUM [CHEM] AM - Assessment Assessment:: Assessment - 04/29/2021 (admitted late 04/28/2021) * 75-year-old female who presents to ED accompanied by her daughter due to concerns of weakness and poor oral intake * History of: HLD, HTN, COPD, GERD, chronic renal sufficiency, osteoporosis, CVA, seizures, bipolar disorder, schizophrenia, dementia * Reportedly had declining ability to ambulate over the past 2 weeks * Had been utilizing a walker and now is wheelchair-bound * Has had multiple falls. * Lives at home with her * Daughter is concerned that she may have a urinary tract infection and is dehydrated * No known fevers, vomiting, diarrhea. * She does have baseline dementia which per the daughter is stable * History of CVA with no residual deficiency * On Coumadin for stroke prophylaxis. * Labs are obtained in ED and on floor * WBC of 9.42-->5.81 * Hemoglobin 11.7-->10.6 * Platelet 327,000-->260,000 * Neutrophils are elevated 73.0%-->61.6% * INR is very high at 6.92-->3.20 * Sodium 132-->129 * Potassium 4.6-->4.0 * Chloride 98-->100 * Carbon dioxide 26-->20 * Anion gap is 12.6-->13.0 * BUN is 22-->18 Creatinine 1.5-->1.1 GFR is 34-->48 * Glucose is 108-->75 * Magnesium 1.8. * Bilirubin 0.4-->0.3 * AST is 25-->23, ALT 21-->16, alkaline phosphatase 130-->16. * Troponin less than 0.017. * CRP is 5.9. * Protein is 6.7-->6.2 * Albumin 3.0-->2.6 * Vitamin D 34.1 * Folate 3.5 * TSH 2.395 * UA is obtained and is grossly positive with cloudy urine, 2+ protein, 1+ ketones, 2+ occult blood, 1+ bilirubin, 2+ leukocyte esterase, 5-10 RBCs, greater than 100 WBCs, few WBC clumps, and many bacteria noted. * SARS-CoV-2 RNA is negative. * She is given 2 g Rocephin and started on IV fluids. She is given 2.5 mg vitamin K due to her high INR. 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 No acute intracranial hemorrhage is noted. * Chest x-ray is obtained showing acute fracture within the anterior lateral left fifth rib and to subacute fractures within the right ribs. Other findings are noted which are nonacute. * She is subsequently admitted to the ICU as a medical floor overflow for management of her UTI and failure to thrive. 04/30/2021 Patient is doing better today. She appears to be less confused. I spoke with daughter today who stated that she was started on warfarin in 2002 after her second CVA. Apparently they found a brain aneurysm and decided to put her on warfarin to prevent a clot in the aneurysm. Patient apparently was seen approximately 6 months ago, had some type of imaging, and the neurosurgeon stated that he did not see an aneurysm. Warfarin was not addressed. 05/01/2021 No new complaints. Pt is weak. She is not eating much of anything. 05/02/2021 75-year-old female patient, who looks much older than her stated age, who was admitted to the floor due to generalized weakness and a urinary tract infection. She has no real complaints however she remains quite weak. She has been able to stand with PT and OT and they are recommending SNF placement. Coumadin was held. She remains on room air. Labs remain grossly stable however her magnesium today was 1.7 and this will be supplemented with 2 g[address] She did see Dr[address] Booker, psychiatry, today via telemedicine and we are waiting his recommendations. Social work is working on placement. Will remain hospitalized until placed. Urine sensitivities are pending - Plan Plan:: Urinary tract infection * Rocephin 1mg daily * IV fluids as ordered * Daily labs * Pulmonary urine culture- Staphylococcus Lugdunensis, awaiting urine cultures * Blood cultures negative thus far Left rib fracture Multiple falls Failure to thrive Weakness Osteoporosis * PT/OT * CM/SW for discharge planning * Pain medications as ordered * Check TSH (WNL) * Check Vitamin D (WNL) * Check Folic acid (low) * Check B12 (WNL) Folic acid deficiency- likely due to nutritional deficiency and poor oral intake * Supplement * PCP follow-up Supratherapeutic INR Chronic anticoagulation * holding coumadin Brain aneurysm * Vitamin K given in ED * Hold warfarin during hospitalization. * PCP follow-up Bipolar disorder Schizophrenia Dementia * Continue home psychiatric meds as ordered * Psychiatric consultation (Dr. Booker) to review medications * ? medication cause of above symptoms * Let patient sleep protocol Hyponatremia -resolved * IV fluids stopped * Monitor labs HLD (hyperlipidemia) * No acute concerns * Hold home statin COPD (chronic obstructive pulmonary disease) * No home respiratory meds * O2 as needed with saturation goal of >90% * No acute concerns GERD (gastroesophageal reflux disease) * No acute concerns CKD (chronic kidney disease) * IV fluids as above * Monitor daily labs History of CVA (cerebrovascular accident) History of seizures * No acute concerns * Continue home seizure meds * Check phenytoin level Hypertension * Monitor vital signs * No acute concerns * Continue home BP meds as ordered Hypomagnesemia * Supplement * Monitor labs Code status: Full code PCP: Dr. Bryan SALVADOR prohylaxis: Lovenox Social: Patient lives at home with Disposition: Patient mated to medical floor for treatment of UTI and further work-up of failure to thrive including PT/OT evaluation. Given her poor overall status, she will need a SNF discharge. Her prognosis remains guarded. LOS >96 hrs due to need for SNF placement with psychiatric history, awaiting urine cultures. <Gordon Allen - Last Filed: 05/02/21 15:38> - Patient Data Vitals - Most Recent: Last Vital Signs Temp 98.1 F 05/02/21 08:49 Pulse 77 05/02/21 08:51 Resp 16 05/02/21 08:49 BP 155/91 H 05/02/21 08:51 Pulse Ox 95 05/02/21 08:49 I&O - Last 24 Hours: Intake & Output 05/02/21 05/02/21 05/02/21 06:59 14:59 22:59 Intake Total 400 50 Output Total 650 855 Balance -250 -805 Lab Results Last 24 Hours: Laboratory Results - last 24 hr 05/02/21 05/02/21 Range/Units 05:30 05:35 WBC 4.66 (3.98-10.04) K/mm3 RBC 3.53 L (3.98-5.22) M/mm3 Hgb 10.5 L (11.2-15.7) gm/dl Hct 32.1 L (34.1-44.9) % MCV 90.9 (79.4-94.8) fl MCH 29.7 (25.6-32.2) pg MCHC 32.7 (32.2-35.5) g/dl RDW Std Deviation 49.7 H (36.4-46.3) fL Plt Count 212 (182-369) K/mm3 MPV 9.1 L (9.4-12.3) fl Neut % (Auto) 56.4 (34.0-71.1) % Lymph % (Auto) 26.4 (19.3-51.7) % [place] % (Auto) 15.7 H (4.7-12.5) % Eos % (Auto) 1.1 (0.7-5.8) Baso % (Auto) 0.2 (0.1-1.2) % Neut # (Auto) 2.63 (1.56-6.13) K/mm3 Lymph # (Auto) 1.23 (1.18-3.74) K/mm3 [place] # (Auto) 0.73 H (0.24-0.36) K/mm3 Eos # (Auto) 0.05 (0.04-0.36) K/mm3 Baso # (Auto) 0.01 (0.01-0.08) K/mm3 Sodium 134 L (136-145) mEq/L Potassium 3.9 (3.5-5.1) mEq/L Chloride 101 (98-107) mEq/L Carbon Dioxide 29 (21-32) mEq/L Anion Gap 7.9 (5-15) BUN 8 (7-18) mg/dL Creatinine 0.7 (0.55-1.02) mg/dL Est Cr Clr Drug Dosing 51.99 mL/min Estimated GFR (MDRD) > 60 (>60) mL/min BUN/Creatinine Ratio 11.4 L (14-18) Glucose 95 (70-99) mg/dL Calcium 7.6 L (8.5-10.1) mg/dL Magnesium 1.7 L (1.8-2.4) mg/dL Ej Results Last 24 Hours: Microbiology 04/28/21 19:20 Urine Culture - Final Urine Staphylococcus Lugd[place]ensis Med Orders - Current: Current Medications Acetaminophen (Acetaminophen 325 Mg Tab) 650 mg PO Q4H PRN PRN Reason: Pain (Mild 1-3)/fever Citalopram Hydrobromide (Citalopram 20 Mg Tab) 20 mg PO DAILY [facility] Last Admin: 05/02/21 08:51 Dose: 20 mg Documented by: Enoxaparin Sodium (Enoxaparin 30 Mg/0.3 Ml Syringe) 30 mg SUBCUT DAILY [facility] Last Admin: 05/02/21 08:52 Dose: 30 mg Documented by: Folic Acid (Folic Acid 1 Mg Tab) 1 mg PO DAILY [facility] Last Admin: 05/02/21 08:51 Dose: 1 mg Documented by: Ceftriaxone Sodium 1 gm/ (Sodium Chloride) 100 mls @ 200 mls/hr IV Q24H [facility] Last Admin: 05/01/21 21:54 Dose: 200 mls/hr Documented by: Metoprolol Succinate (Metoprolol Succinate 50 Mg Tab.Er) 100 mg PO DAILY [facility] Last Admin: 05/02/21 08:51 Dose: 100 mg Documented by: Ondansetron HCl (Ondansetron 4 Mg/2 Ml Sdv) 4 mg IV Q6H PRN PRN Reason: Nausea/Vomiting Phenytoin Sodium (Phenytoin 100 Mg Cap.Er) 100 mg PO BID [facility] Last Admin: 05/02/21 08:51 Dose: 100 mg Documented by: Ziprasidone (Ziprasidone Hcl 20 Mg Cap) 40 mg PO BID [facility] Last Admin: 05/02/21 08:51 Dose: 40 mg Documented by: Discontinued Medications Enoxaparin Sodium (Enoxaparin 40 Mg/0.4 Ml Syringe) 40 mg SUBCUT DAILY [facility] Last Admin: 05/01/21 09:08 Dose: 40 mg Documented by: Sodium Chloride (Normal Saline) 1,000 mls @ 150 mls/hr IV NOW STA Stop: 04/29/21 00:19 Last Infusion: 04/28/21 22:15 Dose: 50 mls/hr Documented by: Ceftriaxone Sodium 2 gm/ (Sodium Chloride) 100 mls @ 200 mls/hr IV ONETIME ONE Stop: 04/28/21 20:17 Last Admin: 04/28/21 20:46 Dose: 200 mls/hr Documented by: Sodium Chloride (Normal Saline) 1,000 mls @ 50 mls/hr IV ASDIRECTED [facility] Last Admin: 04/29/21 03:44 Dose: 50 mls/hr Documented by: Sodium Chloride (Normal Saline) 1,000 mls @ 100 mls/hr IV ASDIRECTED [facility] Stop: 04/29/21 18:59 Last Admin: 04/29/21 17:55 Dose: 100 mls/hr Documented by: Magnesium Sulfate 4 gm/ Premix 50 mls @ 12.5 mls/hr IV ONETIME ONE Stop: 04/30/21 13:01 Last Admin: 04/30/21 09:45 Dose: 12.5 mls/hr Documented by: Magnesium Sulfate 2 gm/ Premix 50 mls @ 25 mls/hr IV ONETIME ONE Stop: 05/02/21 11:10 Last Admin: 05/02/21 09:29 Dose: 25 mls/hr Documented by: Phytonadione (Phytonadione Oral 2.5mg/2.5ml Soln Simple Syrup U/D) 2.5 mg PO ONETIME ONE Stop: 04/28/21 20:15 Last Admin: 04/28/21 20:46 Dose: 2.5 mg Documented by: Warfarin Sodium (Pharmacy To Dose - Warfarin) 0 dose .XX ASDIRECTED PRN PRN Reason: RX TO DOSE WARFARIN Warfarin Sodium (Warfarin 1 Mg Tab) 0.5 mg PO QPM [facility] Stop: 04/29/21 18:01 Last Admin: 04/29/21 18:15 Dose: 0.5 mg Documented by: Warfarin Sodium (Warfarin 1 Mg Tab) 2 mg PO QPM [facility] Stop: 04/30/21 21:00 - Patient Data Lab Results Last 24 hrs: Laboratory Results - last 24 hr 05/02/21 05/02/21 Range/Units 05:30 05:35 WBC 4.66 (3.98-10.04) K/mm3 RBC 3.53 L (3.98-5.22) M/mm3 Hgb 10.5 L (11.2-15.7) gm/dl Hct 32.1 L (34.1-44.9) % MCV 90.9 (79.4-94.8) fl MCH 29.7 (25.6-32.2) pg MCHC 32.7 (32.2-35.5) g/dl RDW Std Deviation 49.7 H (36.4-46.3) fL Plt Count 212 (182-369) K/mm3 MPV 9.1 L (9.4-12.3) fl Neut % (Auto) 56.4 (34.0-71.1) % Lymph % (Auto) 26.4 (19.3-51.7) % [place] % (Auto) 15.7 H (4.7-12.5) % Eos % (Auto) 1.1 (0.7-5.8) Baso % (Auto) 0.2 (0.1-1.2) % Neut # (Auto) 2.63 (1.56-6.13) K/mm3 Lymph # (Auto) 1.23 (1.18-3.74) K/mm3 [place] # (Auto) 0.73 H (0.24-0.36) K/mm3 Eos # (Auto) 0.05 (0.04-0.36) K/mm3 Baso # (Auto) 0.01 (0.01-0.08) K/mm3 Sodium 134 L (136-145) mEq/L Potassium 3.9 (3.5-5.1) mEq/L Chloride 101 (98-107) mEq/L Carbon Dioxide 29 (21-32) mEq/L Anion Gap 7.9 (5-15) BUN 8 (7-18) mg/dL Creatinine 0.7 (0.55-1.02) mg/dL Est Cr Clr Drug Dosing 51.99 mL/min Estimated GFR (MDRD) > 60 (>60) mL/min BUN/Creatinine Ratio 11.4 L (14-18) Glucose 95 (70-99) mg/dL Calcium 7.6 L (8.5-10.1) mg/dL Magnesium 1.7 L (1.8-2.4) mg/dL Result Diagrams: 05/02/21 05:30 05/02/21 05:35 Ej Results Last 24 hrs: Microbiology 04/28/21 19:20 Urine Culture - Final Urine Staphylococcus Lugdunensis Sepsis Event Note - Focused Exam Vital Signs: Vital Signs Temp Pulse Resp BP Pulse Ox 05/02/21 08:51 77 155/91 H 05/02/21 08:49 98.1 F 77 16 155/91 H 95 05/02/21 04:20 97.9 F 81 12 147/79 H 95 - Problem List & Annotations (1) Failure to thrive SNOMED Code(s): 68971972 Code(s): DVQ1845 - Status: Acute Priority: High Current Visit: Yes Qualifiers: Failure to thrive age range: in adult Qualified Code(s): R62.7 - Adult failure to thrive (2) Generalized weakness SNOMED Code(s): 68937901 Code(s): R53.1 - WEAKNESS Status: Acute Current Visit: Yes (3) Schizophrenia SNOMED Code(s): 28130620 Code(s): F20.9 - SCHIZOPHRENIA, UNSPECIFIED Status: Acute Current Visit: Yes (4) Multiple falls SNOMED Code(s): 457263940 Code(s): R29.6 - REPEATED FALLS Status: Acute Priority: High Current Visit: Yes (5) Urinary tract infection SNOMED Code(s): 76906082 Code(s): N39.0 - URINARY TRACT INFECTION, SITE NOT SPECIFIED Status: Acute Priority: High Current Visit: Yes Qualifiers: Urinary tract infection type: acute cystitis Hematuria presence: with hematuria Qualified Code(s): N30.01 - Acute cystitis with hematuria (6) Supratherapeutic INR SNOMED Code(s): 436104460 Code(s): R79.1 - ABNORMAL COAGULATION PROFILE Status: Acute Priority: High Current Visit: Yes - My Orders Last 24 Hours: My Active Orders 05/01/21 16:00 Enoxaparin [Lovenox] 30 mg SUBCUT DAILY - Plan Plan:: Overall Pt is doing better than she did yesterday. Will await SNF placement.
[2021-05-02] MEDS ORDERED: Magnesium Sulfate/Water 2 GM in Premix Bag 1 BAG IV ONE (09:11)
--- NOTE | 2021-05-02 15:18 | CONS ---
CONSULTING PHYSICIAN: Rene Booker MD DATE OF CONSULTATION: 05/02/2021 Site where the services are provided are [facility] in [place], [place]. Site with the services are provided from our office is in [facility]. Length of service for this 60-minute inpatient telemedicine event is 60 minutes. IDENTIFICATION: The patient is a 75-year-old female who was admitted to the inpatient Med/Surg Unit at [facility] in [place], [place]. She is seen for psychiatric consultation per the request of staff attending, Dr. Peña and his treatment team. The patient's daughter, Sandie is present for the entirety of the interview and also participates in the interview this morning. CHIEF COMPLAINT: "They wanted to check me up or something." HISTORY OF PRESENT ILLNESS: The patient is a 75-year-old female who is admitted to the inpatient Med/Surg Unit at [facility] in [place], [place] on 04/28/2021 for what turns out to be UTI and dehydration and failure to thrive. The patient has been getting fluids, as well started on antibiotics since admission, and she is doing better, though her daughter notes "she has had a really bad month" overall. She has been struggling with lack of appetite in addition to the poor hydration and her daughter states that the patient has lost "30 pounds over 6 weeks." She states that she had a fall with a T12 compression fracture and that the lack of appetite and lack of hydration were secondary to pain while [place] . However, since being on the inpatient unit "there is no pain." The daughter stated the patient "fell because she was so weak" out at the farm. She does feel that the patient is doing better, but her and her sister, the patient's other daughter are hoping that the patient can get placed in a short-term transitional care center for some physical therapy before she transitions back to the farm after she is medically stabilized. For her part, the patient is stating she has been a little depressed since the admission and the medical issues. She is alert and oriented x2 to person and place and also to month, but does feel that the year is 1971. The patient is denying any suicidal or homicidal ideation or any psychotic, delusional, or paranoid symptoms. Evidently, the patient has a longstanding diagnosis of paranoid schizophrenia. The patient's daughter feels that the psych medications "are working and have been working" for quite a long time and they do not feel that these medications need adjusting today. They just want to make sure the patient is strong enough to function when she gets back home to the farm and that she is less confused and thinking more clearly as well. MEDICATIONS: At time of admission: 1. Celexa 20 mg daily. 2. Dilantin 100 mg b.i.d. 3. Geodon 40 mg b.i.d. The patient feels that these psychiatric and seizure medications are working. ALLERGIES: 1. Penicillin. 2. Codeine. 3. Nitroglycerin. PAST MEDICAL HISTORY: 1. Seizures with last seizure being in 2002. 2. CVA history back in 2002. 3. History of osteoporosis. 4. History of COPD. 5. History of anemia. 6. T12 compression fracture. 7. UTI. REVIEW OF SYSTEMS: Aside from neuro, musculoskeletal, pulmonary, genitourinary, and blood, all other major organ systems are negative at this point in time for acute difficulties or complications. FAMILY PSYCHIATRIC AND CD HISTORY: None reported. PAST PSYCHIATRIC AND CD HISTORY: The patient does have psychiatric hospitalizations in the past due to her schizophrenia, but none in many years according to the patient's daughter. The patient denies any chemical dependency treatment. She was a 2-pack per day smoker for about 40 years, but quit after her stroke back in 2002 about 18 years ago. There is no history of suicide attempts or self-injurious behaviors. Past psychiatric and CD history is significant for schizophrenia x35 years, depression, possible dementia. PAST PSYCHIATRIC MEDICATION HISTORY: Includes Haldol which did work. SOCIAL HISTORY: The patient was born and raised in [place], [place]. She has been x1 for 47 years. 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 She has 4 children from the marital union and the patient and her still reside on their farm in [place], [place]. MENTAL STATUS EXAMINATION: The patient is a 75-year-old soft-spoken white female in no apparent distress. Speech is of regular rate and rhythm. The patient is cognitively oriented x2 to person and place, but not to date thinking the year is 1972. There are no abnormal motor movements or tics observed. Gait and station are not observed. This patient is lying in bed during the interview. Mood is mildly depressed. Affect is cooperative overall for the purposes of the intake interview and there is no behavioral or stated evidence of acute suicidal or homicidal ideation or acute psychotic, delusional, or paranoid symptoms. Thought processes are slow, but organized. There are no acute manic symptoms or loose associations evident. Judgment and insight appear mildly impaired secondary to the patient's cognitive difficulties, however, motivation for help appears good. VITAL SIGNS: 5 feet 5 inches tall, 106 pounds, 147/79, 81, 12, 97.9 degrees. IMPRESSION: Grindstone I: 1. History of schizophrenia, paranoid type, F20. 2. History of depression, F32.0. 3. Depression, not otherwise specified, F32.9. 4. 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 5. Rule out dementia, not otherwise specified. Grindstone II: None. Grindstone III: 1. History of urinary tract infection. 2. History of anemia. 3. History of chronic obstructive pulmonary disease. 4. History of seizures, last one being in 2002. 5. History of cerebrovascular accident back in 2002. 6. History of osteoporosis. 7. History of T12 compression fracture. 8. History of dehydration on admission, currently being corrected. Grindstone IV: Severe. Grindstone V: 60 to 65. PLAN: 1. Continue Celexa 20 mg daily for depression. 2. Continue Geodon 40 mg b.i.d. for clarity of thought and elimination of paranoid and psychotic symptoms. 3. Continue Dilantin 100 mg b.i.d. for seizure prophylaxis. 4. Other medications as dosed and prescribed by the patient's primary inpatient medical treatment team to address the patient's pertinent medical issues. 5. Recommend that the patient maintain adequate hydration status to help with full function throughout the day. 6. Also recommend the patient maintain adequate nutritional status to help with full function throughout the day. 7. Would recommend when this patient is medically stabilized that she be transitioned to a short-term care facility for further physical therapy and rehabilitation as she gains her strength and mobility again, so she can be transitioned back to the farm where she is residing with her with the support of her family and children. 8. Also recommended supplements to help with cognition such as phosphatidylserine, [id number], vitamin B12, B6, and calcium, magnesium, and zinc supplement as well as BLANCA supplementation, but again this is per patient and patient's family's discretion as these involve an [id number] cost. 9. Discussed benefits and side effects of the patient's continued psychiatric medication regimen as well as the proposed [id number] supplements, and the patient and patient's daughter acknowledge their understanding of these facts, had no further questions by the end of the interview session. 10.We will continue to follow up with the patient on an as-needed basis while she remains on the inpatient Med/Surg Unit at [facility]. 11.We will follow up with the patient sooner if there are any complications in the interim. 12.Crisis plan is in place. SHUBHAM /[id number]
[2021-05-02] MEDS: cefTRIAXone 1 GM in Sodium Chloride 0.9% 100 ML IV SCH (21:01)
--- NOTE | 2021-05-03 08:29 | PCM.PN ---
- General Info Date of Service: 05/03/21 Admission Dx/Problem (Free Text): Admission Diagnosis/Problem Admission Diagnosis/Problem Failure to thrive in adult Functional Status: Reports: Pain Controlled, Tolerating Diet, Ambulating, Urinating. Denies: New Symptoms - Review of Systems General: Reports: Weakness. Denies: Fever, Fatigue, Malaise, Chills HEENT: Reports: No Symptoms. Denies: Headaches, Sore Throat Pulmonary: Reports: No Symptoms. Denies: Shortness of Breath, Cough, Sputum, Wheezing Cardiovascular: Reports: No Symptoms. Denies: Chest Pain, Palpitations, Dyspnea on Exertion, Edema Gastrointestinal: Reports: No Symptoms. Denies: Abdominal Pain, Constipation, Diarrhea, Nausea, Vomiting Genitourinary: Reports: No Symptoms. Denies: Pain Musculoskeletal: Reports: No Symptoms. Denies: Neck Pain Skin: Reports: No Symptoms. Denies: Cyanosis Neurological: Reports: Confusion, Difficulty Walking, Weakness, Gait Disturbance. Denies: Dizziness, Headache, Numbness, Paresthesia, Seizure, Syncope, Tingling, Tremors, Trouble Speaking, Change in Speech Psychiatric: Reports: No Symptoms - Patient Data Vitals - Most Recent: Last Vital Signs Temp 98.1 F 05/03/21 04:40 Pulse 72 05/03/21 04:40 Resp 16 05/03/21 04:40 BP 158/79 H 05/03/21 04:40 Pulse Ox 98 05/03/21 07:00 Weight - Most Recent: 110 lb 1.6 oz I&O - Last 24 Hours: Intake & Output 05/02/21 05/03/21 05/03/21 22:59 06:59 14:59 Intake Total 120 300 Output Total 850 450 Balance -730 -150 Lab Results Last 24 Hours: Laboratory Results - last 24 hr 05/03/21 05/03/21 Range/Units 04:29 04:29 WBC 5.14 (3.98-10.04) K/mm3 RBC 3.63 L (3.98-5.22) M/mm3 Hgb 10.9 L (11.2-15.7) gm/dl Hct 33.1 L (34.1-44.9) % MCV 91.2 (79.4-94.8) fl MCH 30.0 (25.6-32.2) pg MCHC 32.9 (32.2-35.5) g/dl RDW Std Deviation 50.2 H (36.4-46.3) fL Plt Count 212 (182-369) K/mm3 MPV 9.0 L (9.4-12.3) fl Neut % (Auto) 55.8 (34.0-71.1) % Lymph % (Auto) 24.3 (19.3-51.7) % Towns % (Auto) 18.1 H (4.7-12.5) % Eos % (Auto) 1.4 (0.7-5.8) Baso % (Auto) 0.2 (0.1-1.2) % Neut # (Auto) 2.87 (1.56-6.13) K/mm3 Lymph # (Auto) 1.25 (1.18-3.74) K/mm3 Towns # (Auto) 0.93 H (0.24-0.36) K/mm3 Eos # (Auto) 0.07 (0.04-0.36) K/mm3 Baso # (Auto) 0.01 (0.01-0.08) K/mm3 Sodium 137 (136-145) mEq/L Potassium 3.9 (3.5-5.1) mEq/L Chloride 102 (98-107) mEq/L Carbon Dioxide 29 (21-32) mEq/L Anion Gap 9.9 (5-15) BUN 6 L (7-18) mg/dL Creatinine 0.7 (0.55-1.02) mg/dL Est Cr Clr Drug Dosing 51.99 mL/min Estimated GFR (MDRD) > 60 (>60) mL/min BUN/Creatinine Ratio 8.6 L (14-18) Glucose 89 (70-99) mg/dL Calcium 7.5 L (8.5-10.1) mg/dL Magnesium 1.9 (1.8-2.4) mg/dL Ej Results Last 24 Hours: Microbiology 04/28/21 19:20 Urine Culture - Final Urine Staphylococcus Lugdunensis Med Orders - Current: Current Medications Acetaminophen (Acetaminophen 325 Mg Tab) 650 mg PO Q4H PRN PRN Reason: Pain (Mild 1-3)/fever Citalopram Hydrobromide (Citalopram 20 Mg Tab) 20 mg PO DAILY [facility] Last Admin: 05/02/21 08:51 Dose: 20 mg Documented by: Enoxaparin Sodium (Enoxaparin 30 Mg/0.3 Ml Syringe) 30 mg SUBCUT DAILY [facility] Last Admin: 05/02/21 08:52 Dose: 30 mg Documented by: Folic Acid (Folic Acid 1 Mg Tab) 1 mg PO DAILY [facility] Last Admin: 05/02/21 08:51 Dose: 1 mg Documented by: Ceftriaxone Sodium 1 gm/ (Sodium Chloride) 100 mls @ 200 mls/hr IV Q24H [facility] Last Admin: 05/02/21 21:01 Dose: 200 mls/hr Documented by: Magnesium Oxide (Magnesium Oxide 400 Mg Tab) 400 mg PO DAILY [facility] Metoprolol Succinate (Metoprolol Succinate 50 Mg Tab.Er) 100 mg PO DAILY [facility] Last Admin: 05/02/21 08:51 Dose: 100 mg Documented by: Ondansetron HCl (Ondansetron 4 Mg/2 Ml Sdv) 4 mg IV Q6H PRN PRN Reason: Nausea/Vomiting Phenytoin Sodium (Phenytoin 100 Mg Cap.Er) 100 mg PO BID [facility] Last Admin: 05/02/21 21:18 Dose: 100 mg Documented by: Ziprasidone (Ziprasidone Hcl 20 Mg Cap) 40 mg PO BID [facility] Last Admin: 05/02/21 21:18 Dose: 40 mg Documented by: Discontinued Medications Enoxaparin Sodium (Enoxaparin 40 Mg/0.4 Ml Syringe) 40 mg SUBCUT DAILY [facility] Last Admin: 05/01/21 09:08 Dose: 40 mg Documented by: Sodium Chloride (Normal Saline) 1,000 mls @ 150 mls/hr IV NOW STA Stop: 04/29/21 00:19 Last Infusion: 04/28/21 22:15 Dose: 50 mls/hr Documented by: Ceftriaxone Sodium 2 gm/ (Sodium Chloride) 100 mls @ 200 mls/hr IV ONETIME ONE Stop: 04/28/21 20:17 Last Admin: 04/28/21 20:46 Dose: 200 mls/hr Documented by: Sodium Chloride (Normal Saline) 1,000 mls @ 50 mls/hr IV ASDIRECTED [facility] Last Admin: 04/29/21 03:44 Dose: 50 mls/hr Documented by: Sodium Chloride (Normal Saline) 1,000 mls @ 100 mls/hr IV ASDIRECTED SOFIA Stop: 04/29/21 18:59 Last Admin: 04/29/21 17:55 Dose: 100 mls/hr Documented by: Magnesium Sulfate 4 gm/ Premix 50 mls @ 12.5 mls/hr IV ONETIME ONE Stop: 04/30/21 13:01 Last Admin: 04/30/21 09:45 Dose: 12.5 mls/hr Documented by: Magnesium Sulfate 2 gm/ Premix 50 mls @ 25 mls/hr IV ONETIME ONE Stop: 05/02/21 11:10 Last Admin: 05/02/21 09:29 Dose: 25 mls/hr Documented by: Phytonadione (Phytonadione Oral 2.5mg/2.5ml Soln Simple Syrup U/D) 2.5 mg PO ONETIME ONE Stop: 04/28/21 20:15 Last Admin: 04/28/21 20:46 Dose: 2.5 mg Documented by: Warfarin Sodium (Pharmacy To Dose - Warfarin) 0 dose .XX ASDIRECTED PRN PRN Reason: RX TO DOSE WARFARIN Warfarin Sodium (Warfarin 1 Mg Tab) 0.5 mg PO QPM [facility] Stop: 04/29/21 18:01 Last Admin: 04/29/21 18:15 Dose: 0.5 mg Documented by: Warfarin Sodium (Warfarin 1 Mg Tab) 2 mg PO QPM [facility] Stop: 04/30/21 21:00 - Exam Quality Assessment: Urine Catheter, DVT Prophylaxis. No: Supplemental Oxygen Urinary Catheter Total Time: 3Days 21Hours General: Alert, Cooperative, No Acute Distress HEENT: Pupils Equal, Pupils Reactive, Mucous Membr. Moist/[place] Neck: Supple, Trachea Midline Lungs: Clear to Auscultation, Normal Respiratory Effort Cardiovascular: Regular Rate, Regular Rhythm GI/Abdominal Exam: Normal Bowel Sounds, Soft, Non-Tender, No Distention (Female) Exam: Deferred Back Exam: Normal Inspection, Full Range of Motion Extremities: Normal Inspection, Normal Range of Motion, Non-Tender, No Pedal Edema, Normal Capillary Refill Skin: Warm, Dry, Intact Neurological: No New Focal Deficit Psy/Mental Status: Alert, Normal Affect, Normal Mood - Patient Data Lab Results Last 24 hrs: Laboratory Results - last 24 hr 05/03/21 05/03/21 Range/Units 04:29 04:29 WBC 5.14 (3.98-10.04) K/mm3 RBC 3.63 L (3.98-5.22) M/mm3 Hgb 10.9 L (11.2-15.7) gm/dl Hct 33.1 L (34.1-44.9) % MCV 91.2 (79.4-94.8) fl MCH 30.0 (25.6-32.2) pg MCHC 32.9 (32.2-35.5) g/dl RDW Std Deviation 50.2 H (36.4-46.3) fL Plt Count 212 (182-369) K/mm3 MPV 9.0 L (9.4-12.3) fl Neut % (Auto) 55.8 (34.0-71.1) % Lymph % (Auto) 24.3 (19.3-51.7) % Towns % (Auto) 18.1 H (4.7-12.5) % Eos % (Auto) 1.4 (0.7-5.8) Baso % (Auto) 0.2 (0.1-1.2) % Neut # (Auto) 2.87 (1.56-6.13) K/mm3 Lymph # (Auto) 1.25 (1.18-3.74) K/mm3 Towns # (Auto) 0.93 H (0.24-0.36) K/mm3 Eos # (Auto) 0.07 (0.04-0.36) K/mm3 Baso # (Auto) 0.01 (0.01-0.08) K/mm3 Sodium 137 (136-145) mEq/L Potassium 3.9 (3.5-5.1) mEq/L Chloride 102 (98-107) mEq/L Carbon Dioxide 29 (21-32) mEq/L Anion Gap 9.9 (5-15) BUN 6 L (7-18) mg/dL Creatinine 0.7 (0.55-1.02) mg/dL Est Cr Clr Drug Dosing 51.99 mL/min Estimated GFR (MDRD) > 60 (>60) mL/min BUN/Creatinine Ratio 8.6 L (14-18) Glucose 89 (70-99) mg/dL Calcium 7.5 L (8.5-10.1) mg/dL Magnesium 1.9 (1.8-2.4) mg/dL Result Diagrams: 05/03/21 04:29 05/03/21 04:29 Ej Results Last 24 hrs: Microbiology 04/28/21 19:20 Urine Culture - Final Urine Staphylococcus Lugdunensis Sepsis Event Note - Evaluation Sepsis Screening Result: No Definite Risk - Focused Exam Vital Signs: Vital Signs Temp Pulse Resp BP Pulse Ox 05/03/21 07:00 98 05/03/21 04:40 98.1 F 72 16 158/79 H 95 05/02/21 22:18 142/83 H 05/02/21 21:29 98.1 F 67 18 159/106 H 92 L - Problem List & Annotations (1) HLD (hyperlipidemia) SNOMED Code(s): 01419647 Code(s): E78.5 - HYPERLIPIDEMIA, UNSPECIFIED Status: Chronic Priority: Low Current Visit: No Qualifiers: Hyperlipidemia type: unspecified Qualified Code(s): E78.5 - Hyperlipidemia, unspecified (2) COPD (chronic obstructive pulmonary disease) SNOMED Code(s): 65293675 Code(s): J44.9 - CHRONIC OBSTRUCTIVE PULMONARY DISEASE, UNSPECIFIED Status: Chronic Priority: Low Current Visit: No Qualifiers: COPD type: unspecified COPD Qualified Code(s): J44.9 - Chronic obstructive pulmonary disease, unspecified (3) GERD (gastroesophageal reflux disease) SNOMED Code(s): 344856637 Code(s): K21.9 - GASTRO-ESOPHAGEAL REFLUX DISEASE WITHOUT ESOPHAGITIS Status: Chronic Priority: Low Current Visit: No Qualifiers: Esophagitis presence: esophagitis presence not specified Qualified Code(s): K21.9 - Gastro-esophageal reflux disease without esophagitis (4) CKD (chronic kidney disease) SNOMED Code(s): 491105903 Code(s): N18.9 - CHRONIC KIDNEY DISEASE, UNSPECIFIED Status: Chronic Priority: Medium Current Visit: Yes Qualifiers: Chronic kidney disease stage: stage 3 (moderate) Chronic kidney disease stage 3 subtype: stage 3b (GFR 30-44) Qualified Code(s): N18.32 - Chronic kidney disease, stage 3b (5) Osteoporosis SNOMED Code(s): 88346718 Code(s): M81.0 - AGE-RELATED OSTEOPOROSIS W/O CURRENT PATHOLOGICAL FRACTURE Status: Chronic Priority: Low Current Visit: No Qualifiers: Osteoporosis type: unspecified Presence of current pathological fracture: unspecified Qualified Code(s): M81.0 - Age-related osteoporosis without current pathological fracture (6) Bipolar disorder SNOMED Code(s): 99945295 Code(s): F31.9 - BIPOLAR DISORDER, UNSPECIFIED Status: Chronic Priority: Medium Current Visit: Yes Qualifiers: Active/Remission status: remission status unspecified Qualified Code(s): F31.9 - Bipolar disorder, unspecified (7) Left rib fracture SNOMED Code(s): 67697404 Code(s): S22.32XA - FRACTURE OF ONE RIB, LEFT SIDE, INIT FOR CLOS FX Status: Acute Priority: Medium Current Visit: Yes Qualifiers: Encounter type: initial encounter Rib fracture type: single rib Fracture type: closed Qualified Code(s): S22.32XA - Fracture of one rib, left side, initial encounter for closed fracture (8) Multiple falls SNOMED Code(s): 636024731 Code(s): R29.6 - REPEATED FALLS Status: Acute Priority: High Current Visit: Yes (9) Weakness SNOMED Code(s): 91624516 Code(s): R53.1 - WEAKNESS Status: Acute Priority: High Current Visit: Yes (10) Supratherapeutic INR SNOMED Code(s): 985075931 Code(s): R79.1 - ABNORMAL COAGULATION PROFILE Status: Acute Priority: High Current Visit: Yes (11) Hyponatremia SNOMED Code(s): 43788825 Code(s): E87.1 - HYPO-OSMOLALITY AND HYPONATREMIA Status: Acute Priority: High Current Visit: Yes (12) Failure to thrive SNOMED Code(s): 76903586 Code(s): ZCE2629 - Status: Acute Priority: High Current Visit: Yes Qualifiers: Failure to thrive age range: in adult Qualified Code(s): R62.7 - Adult failure to thrive (13) Urinary tract infection SNOMED Code(s): 01471580 Code(s): N39.0 - URINARY TRACT INFECTION, SITE NOT SPECIFIED Status: Acute Priority: High Current Visit: Yes Qualifiers: Urinary tract infection type: acute cystitis Hematuria presence: with hematuria Qualified Code(s): N30.01 - Acute cystitis with hematuria (14) Chronic anticoagulation SNOMED Code(s): 169982742 Code(s): Z79.01 - SNF (CURRENT) USE OF ANTICOAGULANTS Status: Chronic Priority: High Current Visit: Yes (15) History of CVA (cerebrovascular accident) SNOMED Code(s): 050374886 Code(s): Z86.73 - PRSNL HX OF TIA (TIA), AND CEREB INFRC W/O RESID DEFICITS Status: Chronic Priority: Medium Current Visit: No (16) History of seizures SNOMED Code(s): 514540094 Code(s): Z87.898 - PERSONAL HISTORY OF OTHER SPECIFIED CONDITIONS Status: Chronic Priority: Medium Current Visit: No (17) Hypertension SNOMED Code(s): 68476114 Code(s): I10 - ESSENTIAL (PRIMARY) HYPERTENSION Status: Chronic Priority: Medium Current Visit: No Qualifiers: Hypertension type: unspecified Qualified Code(s): I10 - Essential (primary) hypertension (18) Schizophrenia SNOMED Code(s): 95036576 Code(s): F20.9 - SCHIZOPHRENIA, UNSPECIFIED Status: Chronic Priority: Medium Current Visit: No Qualifiers: Schizophrenia type: unspecified Qualified Code(s): F20.9 - Schizophrenia, unspecified (19) Folic acid deficiency SNOMED Code(s): 242931185 Code(s): E53.8 - DEFICIENCY OF OTHER SPECIFIED B GROUP VITAMINS Status: Acute Priority: High Current Visit: Yes (20) Dementia SNOMED Code(s): 88931025 Code(s): F03.90 - UNSPECIFIED DEMENTIA WITHOUT BEHAVIORAL DISTURBANCE Status: Chronic Priority: High Current Visit: Yes Qualifiers: Dementia type: unspecified type Dementia behavioral disturbance: without behavioral disturbance Qualified Code(s): F03.90 - Unspecified dementia without behavioral disturbance (21) Hypomagnesemia SNOMED Code(s): 773849595 Code(s): E83.42 - HYPOMAGNESEMIA Status: Acute Priority: High Current Visit: Yes (22) Urine retention SNOMED Code(s): 299203487 Code(s): R33.9 - RETENTION OF URINE, UNSPECIFIED Status: Acute Priority: High Current Visit: Yes - Problem List Review Problem List Initiated/Reviewed/Updated: Yes - My Orders Last 24 Hours: My Active Orders 05/02/21 08:51 DC Brito Catheter [Urinary Catheter Removal] [RC] PER UNIT ROUTINE 05/02/21 17:28 Urinary Catheter Assessment [RC] ASDIRECTED 05/02/21 17:30 Insert Brito Catheter [Insert Urinary Catheter] [OM.PC] Q24H 05/03/21 09:00 Magnesium Oxide 400 mg PO DAILY - Assessment Assessment:: Assessment - 04/29/2021 (admitted late 04/28/2021) * 75-year-old female who presents to ED accompanied by her daughter due to concerns of weakness and poor oral intake * History of: HLD, HTN, COPD, GERD, chronic renal sufficiency, osteoporosis, CVA, seizures, bipolar disorder, schizophrenia, dementia * Reportedly had declining ability to ambulate over the past 2 weeks * Had been utilizing a walker and now is wheelchair-bound * Has had multiple falls. * Lives at home with her * Daughter is concerned that she may have a urinary tract infection and is dehy drated * No known fevers, vomiting, diarrhea. * She does have baseline dementia which per the daughter is stable * History of CVA with no residual deficiency * On Coumadin for stroke prophylaxis. * Labs are obtained in ED and on floor * WBC of 9.42-->5.81 * Hemoglobin 11.7-->10.6 * Platelet 327,000-->260,000 * Neutrophils are elevated 73.0%-->61.6% * INR is very high at 6.92-->3.20 * Sodium 132-->129 * Potassium 4.6-->4.0 * Chloride 98-->100 * Carbon dioxide 26-->20 * Anion gap is 12.6-->13.0 * BUN is 22-->18 Creatinine 1.5-->1.1 GFR is 34-->48 * Glucose is 108-->75 * Magnesium 1.8. * Bilirubin 0.4-->0.3 * AST is 25-->23, ALT 21-->16, alkaline phosphatase 130-->16. * Troponin less than 0.017. * CRP is 5.9. * Protein is 6.7-->6.2 * Albumin 3.0-->2.6 * Vitamin D 34.1 * Folate 3.5 * TSH 2.395 * UA is obtained and is grossly positive with cloudy urine, 2+ protein, 1+ ketones, 2+ occult blood, 1+ bilirubin, 2+ leukocyte esterase, 5-10 RBCs, greater than 100 WBCs, few WBC clumps, and many bacteria noted. * SARS-CoV-2 RNA is negative. * She is given 2 g Rocephin and started on IV fluids. She is given 2.5 mg vitamin K due to her high INR. 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 No acute intracranial hemorrhage is noted. * Chest x-ray is obtained showing acute fracture within the anterior lateral left fifth rib and to subacute fractures within the right ribs. Other findings are noted which are nonacute. * She is subsequently admitted to the ICU as a medical floor overflow for management of her UTI and failure to thrive. 04/30/2021 Patient is doing better today. She appears to be less confused. I spoke with daughter today who stated that she was started on warfarin in 2002 after her second CVA. Apparently they found a brain aneurysm and decided to put her on warfarin to prevent a clot in the aneurysm. Patient apparently was seen approximately 6 months ago, had some type of imaging, and the neurosurgeon stated that he did not see an aneurysm. Warfarin was not addressed. 05/01/2021 No new complaints. Pt is weak. She is not eating much of anything. 05/02/2021 75-year-old female patient, who looks much older than her stated age, who was admitted to the floor due to generalized weakness and a urinary tract infection. She has no real complaints however she remains quite weak. She has been able to stand with PT and OT and they are recommending SNF placement. Coumadin was held. She remains on room air. Labs remain grossly stable however her magnesium today was 1.7 and this will be supplemented with 2 [address] She did [address] Dr[address] Booker, psychiatry, today via telemedicine and we are waiting his recommendations. Social work is working on placement. Will remain hospitalized until placed. Urine sensitivities are pending. 05/03/2021 75-year-old female patient admitted to the floor for weakness and a urinary tract infection. Urine is growing pansensitive Staphylococcus Lugdunensis. She has completed 5 days of IV antibiotics with Rocephin and this will be discontinued. Labs today show WBC of 5.14. Hemoglobin is 10.9. Sodium 137. Potassium 3.9. Carbon dioxide 29. Anion gap 9.9. BUN is 6. Creatinine 0.7. GFR greater than 60. Glucose 89. Magnesium is 1.9. We will start her on a daily 400 mg magnesium supplementation. Brito catheter was removed yesterday and trial and unfortunately patient continued to have urine retention. Brito catheter was replaced and she will need to follow-up with urology regarding this. She did see Dr. Booker via telepsychiatry who had no further concerns with her medications and recommended continuing what she is on. Social work has been involved in her screening is pending for SNF. PT and OT continue to recommend SNF rehab stay. She will remain hospitalized pending placement, which is pending her screening. - Plan Plan:: Plan:: Urinary tract infection - Complted treatment * Pulmonary urine culture- Staphylococcus Lugdunensis- walls sensitive * Blood cultures negative thus far * Completed 5 days IV Rocephin Left rib fracture Multiple falls Failure to thrive Weakness Osteoporosis * PT/OT * CM/SW for discharge planning * Pain medications as ordered * Check TSH (WNL) * Check Vitamin D (WNL) * Check Folic acid (low) * Check B12 (WNL) Folic acid deficiency- likely due to nutritional deficiency and poor oral intake * Supplement * PCP follow-up Supratherapeutic INR Chronic anticoagulation * Discontinue Coumadin * Vitamin K given in ED Brain aneurysm - ruled inactive Bipolar disorder Schizophrenia Dementia * Continue home psychiatric meds as ordered * Psychiatric consultation (Dr. Booker) to review medications - no changes or concerns * ? medication cause of above symptoms * Let patient sleep protocol Hyponatremia -resolved * IV fluids stopped * Monitor labs HLD (hyperlipidemia) * No acute concerns * Hold home statin COPD (chronic obstructive pulmonary disease) * No home respiratory meds * O2 as needed with saturation goal of >90% * No acute concerns GERD (gastroesophageal reflux disease) * No acute concerns CKD (chronic kidney disease) * No acute concerns * Monitor daily labs History of CVA (cerebrovascular accident) History of seizures * No acute concerns * Continue home seizure meds * Check phenytoin level Hypertension * Monitor vital signs * No acute concerns * Continue home BP meds as ordered Hypomagnesemia * Supplement * Monitor labs Urine retention * Attempted Brito catheter removal on 05/02/2021 with continued urine retention * Brito catheter replaced * Urology follow-up after discharge Code status: Full code PCP: Dr. Adams DVT prohylaxis: Lovenox Social: Patient lives at home with Disposition: Patient mated to medical floor for treatment of UTI and further work-up of failure to thrive including PT/OT evaluation. Given her poor overall status, she will need a SNF discharge. LOS >96 hrs due to need for SNF placement with psychiatric history
[2021-05-03] MEDS: Ziprasidone HCl 20 MG Cap PO SCH ×2 (09:56→20:25)
[2021-05-03] MEDS: Citalopram 20 MG Tab PO SCH (09:58)
[2021-05-03] MEDS: Magnesium Oxide 400 MG Tab PO SCH (09:58)
[2021-05-03] MEDS: Phenytoin 100 MG Cap.ER PO SCH ×2 (09:58→20:23)
[2021-05-03] MEDS: Enoxaparin 30 MG/0.3 ML Syringe SUBCUT SCH (09:59)
[2021-05-03] MEDS: Folic Acid 1 MG Tab PO SCH (09:59)
[2021-05-03] MEDS: Metoprolol Succinate 50 MG Tab.ER PO SCH (10:02)
--- NOTE | 2021-05-04 07:19 | PCM.PN ---
- General Info Date of Service: 05/04/21 Admission Dx/Problem (Free Text): Admission Diagnosis/Problem Admission Diagnosis/Problem Failure to thrive in adult - Patient Data Vitals - Most Recent: Last Vital Signs Temp 98.4 F 05/04/21 03:10 Pulse 75 05/04/21 03:10 Resp 15 05/04/21 03:10 BP 133/78 05/04/21 03:10 Pulse Ox 93 L 05/04/21 03:10 Weight - Most Recent: 116 lb I&O - Last 24 Hours: Intake & Output 05/03/21 05/04/21 05/04/21 22:59 06:59 14:59 Intake Total 300 500 Output Total 600 Balance 300 -100 Lab Results Last 24 Hours: Laboratory Results - last 24 hr 04/29/21 Range/Units 10:24 Phenytoin 27.8 H* (10.0-20.0) ug/mL Free Phenytoin 3.1 H* (1.0-2.0) ug/mL Med Orders - Current: Current Medications Acetaminophen (Acetaminophen 325 Mg Tab) 650 mg PO Q4H PRN PRN Reason: Pain (Mild 1-3)/fever Citalopram Hydrobromide (Citalopram 20 Mg Tab) 20 mg PO DAILY [facility] Last Admin: 05/03/21 09:58 Dose: 20 mg Documented by: Enoxaparin Sodium (Enoxaparin 30 Mg/0.3 Ml Syringe) 30 mg SUBCUT DAILY [facility] Last Admin: 05/03/21 09:59 Dose: 30 mg Documented by: Folic Acid (Folic Acid 1 Mg Tab) 1 mg PO DAILY [facility] Last Admin: 05/03/21 09:59 Dose: 1 mg Documented by: Magnesium Oxide (Magnesium Oxide 400 Mg Tab) 400 mg PO DAILY [facility] Last Admin: 05/03/21 09:58 Dose: 400 mg Documented by: Metoprolol Succinate (Metoprolol Succinate 50 Mg Tab.Er) 100 mg PO DAILY [facility] Last Admin: 05/03/21 10:02 Dose: 100 mg Documented by: Ondansetron HCl (Ondansetron 4 Mg/2 Ml Sdv) 4 mg IV Q6H PRN PRN Reason: Nausea/Vomiting Ziprasidone (Ziprasidone Hcl 20 Mg Cap) 40 mg PO BID [facility] Last Admin: 05/03/21 20:25 Dose: 40 mg Documented by: Discontinued Medications Enoxaparin Sodium (Enoxaparin 40 Mg/0.4 Ml Syringe) 40 mg SUBCUT DAILY [facility] Last Admin: 05/01/21 09:08 Dose: 40 mg Documented by: Sodium Chloride (Normal Saline) 1,000 mls @ 150 mls/hr IV NOW STA Stop: 04/29/21 00:19 Last Infusion: 04/28/21 22:15 Dose: 50 mls/hr Documented by: Ceftriaxone Sodium 2 gm/ (Sodium Chloride) 100 mls @ 200 mls/hr IV ONETIME ONE Stop: 04/28/21 20:17 Last Admin: 04/28/21 20:46 Dose: 200 mls/hr Documented by: Sodium Chloride (Normal Saline) 1,000 mls @ 50 mls/hr IV ASDIRECTED [facility] Last Admin: 04/29/21 03:44 Dose: 50 mls/hr Documented by: Ceftriaxone Sodium 1 gm/ (Sodium Chloride) 100 mls @ 200 mls/hr IV Q24H [facility] Last Admin: 05/02/21 21:01 Dose: 200 mls/hr Documented by: Sodium Chloride (Normal Saline) 1,000 mls @ 100 mls/hr IV ASDIRECTED [facility] Stop: 04/29/21 18:59 Last Admin: 04/29/21 17:55 Dose: 100 mls/hr Documented by: Magnesium Sulfate 4 gm/ Premix 50 mls @ 12.5 mls/hr IV ONETIME ONE Stop: 04/30/21 13:01 Last Admin: 04/30/21 09:45 Dose: 12.5 mls/hr Documented by: Magnesium Sulfate 2 gm/ Premix 50 mls @ 25 mls/hr IV ONETIME ONE Stop: 05/02/21 11:10 Last Admin: 05/02/21 09:29 Dose: 25 mls/hr Documented by: Phenytoin Sodium (Phenytoin 100 Mg Cap.Er) 100 mg PO BID [facility] Last Admin: 05/03/21 20:23 Dose: 100 mg Documented by: Phytonadione (Phytonadione Oral 2.5mg/2.5ml Soln Simple Syrup U/D) 2.5 mg PO ONETIME ONE Stop: 04/28/21 20:15 Last Admin: 04/28/21 20:46 Dose: 2.5 mg Documented by: Warfarin Sodium (Pharmacy To Dose - Warfarin) 0 dose .XX ASDIRECTED PRN PRN Reason: RX TO DOSE WARFARIN Warfarin Sodium (Warfarin 1 Mg Tab) 0.5 mg PO QPM [facility] Stop: 04/29/21 18:01 Last Admin: 04/29/21 18:15 Dose: 0.5 mg Documented by: Warfarin Sodium (Warfarin 1 Mg Tab) 2 mg PO QPM [facility] Stop: 04/30/21 21:00 - Exam Urinary Catheter Total Time: 5Days 7Hours - Patient Data Lab Results Last 24 hrs: Laboratory Results - last 24 hr 04/29/21 Range/Units 10:24 Phenytoin 27.8 H* (10.0-20.0) ug/mL Free Phenytoin 3.1 H* (1.0-2.0) ug/mL Result Diagrams: 05/03/21 04:29 05/03/21 04:29 Sepsis Event Note - Evaluation Sepsis Screening Result: No Definite Risk - Focused Exam Vital Signs: Vital Signs Temp Pulse Resp BP Pulse Ox 05/04/21 03:10 98.4 F 75 15 133/78 93 L 05/03/21 19:48 98.4 F 72 14 110/56 L 93 L - Problem List & Annotations (1) HLD (hyperlipidemia) SNOMED Code(s): 45822817 Code(s): E78.5 - HYPERLIPIDEMIA, UNSPECIFIED Status: Chronic Priority: Low Current Visit: No Qualifiers: Hyperlipidemia type: unspecified Qualified Code(s): E78.5 - Hyperlipidemia, unspecified (2) COPD (chronic obstructive pulmonary disease) SNOMED Code(s): 57859993 Code(s): J44.9 - CHRONIC OBSTRUCTIVE PULMONARY DISEASE, UNSPECIFIED Status: Chronic Priority: Low Current Visit: No Qualifiers: COPD type: unspecified COPD Qualified Code(s): J44.9 - Chronic obstructive pulmonary disease, unspecified (3) GERD (gastroesophageal reflux disease) SNOMED Code(s): 621049066 Code(s): K21.9 - GASTRO-ESOPHAGEAL REFLUX DISEASE WITHOUT ESOPHAGITIS Status: Chronic Priority: Low Current Visit: No Qualifiers: Esophagitis presence: esophagitis presence not specified Qualified Code(s): K21.9 - Gastro-esophageal reflux disease without esophagitis (4) CKD (chronic kidney disease) SNOMED Code(s): 152724430 Code(s): N18.9 - CHRONIC KIDNEY DISEASE, UNSPECIFIED Status: Chronic Priority: Medium Current Visit: Yes Qualifiers: Chronic kidney disease stage: stage 3 (moderate) Chronic kidney disease stage 3 subtype: stage 3b (GFR 30-44) Qualified Code(s): N18.32 - Chronic kidney disease, stage 3b (5) Osteoporosis SNOMED Code(s): 63130891 Code(s): M81.0 - AGE-RELATED OSTEOPOROSIS W/O CURRENT PATHOLOGICAL FRACTURE Status: Chronic Priority: Low Current Visit: No Qualifiers: Osteoporosis type: unspecified Presence of current pathological fracture: unspecified Qualified Code(s): M81.0 - Age-related osteoporosis without current pathological fracture (6) Bipolar disorder SNOMED Code(s): 25215271 Code(s): F31.9 - BIPOLAR DISORDER, UNSPECIFIED Status: Chronic Priority: Medium Current Visit: Yes Qualifiers: Active/Remission status: remission status unspecified Qualified Code(s): F31.9 - Bipolar disorder, unspecified (7) Left rib fracture SNOMED Code(s): 14729512 Code(s): S22.32XA - FRACTURE OF ONE RIB, LEFT SIDE, INIT FOR CLOS FX Status: Acute Priority: Medium Current Visit: Yes Qualifiers: Encounter type: initial encounter Rib fracture type: single rib Fracture type: closed Qualified Code(s): S22.32XA - Fracture of one rib, left side, initial encounter for closed fracture (8) Multiple falls SNOMED Code(s): 716322175 Code(s): R29.6 - REPEATED FALLS Status: Acute Priority: High Current Visit: Yes (9) Weakness SNOMED Code(s): 89396444 Code(s): R53.1 - WEAKNESS Status: Acute Priority: High Current Visit: Yes (10) Supratherapeutic INR SNOMED Code(s): 750503597 Code(s): R79.1 - ABNORMAL COAGULATION PROFILE Status: Acute Priority: High Current Visit: Yes (11) Hyponatremia SNOMED Code(s): 96293100 Code(s): E87.1 - HYPO-OSMOLALITY AND HYPONATREMIA Status: Acute Priority: High Current Visit: Yes (12) Failure to thrive SNOMED Code(s): 14469997 Code(s): RHV5723 - Status: Acute Priority: High Current Visit: Yes Qualifiers: Failure to thrive age range: in adult Qualified Code(s): R62.7 - Adult failure to thrive (13) Urinary tract infection SNOMED Code(s): 16402046 Code(s): N39.0 - URINARY TRACT INFECTION, SITE NOT SPECIFIED Status: Acute Priority: High Current Visit: Yes Qualifiers: Urinary tract infection type: acute cystitis Hematuria presence: with hematuria Qualified Code(s): N30.01 - Acute cystitis with hematuria (14) Chronic anticoagulation SNOMED Code(s): 670837886 Code(s): Z79.01 - ADDICTION PSYCHIATRIST (CURRENT) USE OF ANTICOAGULANTS Status: Chronic Priority: High Current Visit: Yes (15) History of CVA (cerebrovascular accident) SNOMED Code(s): 925914588 Code(s): Z86.73 - PRSNL HX OF TIA (TIA), AND CEREB INFRC W/O RESID DEFICITS Status: Chronic Priority: Medium Current Visit: No (16) History of seizures SNOMED Code(s): 890107919 Code(s): Z87.898 - PERSONAL HISTORY OF OTHER SPECIFIED CONDITIONS Status: Chronic Priority: Medium Current Visit: No (17) Hypertension SNOMED Code(s): 10309390 Code(s): I10 - ESSENTIAL (PRIMARY) HYPERTENSION Status: Chronic Priority: Medium Current Visit: No Qualifiers: Hypertension type: unspecified Qualified Code(s): I10 - Essential (primary) hypertension (18) Schizophrenia SNOMED Code(s): 97478626 Code(s): F20.9 - SCHIZOPHRENIA, UNSPECIFIED Status: Chronic Priority: Medium Current Visit: No Qualifiers: Schizophrenia type: unspecified Qualified Code(s): F20.9 - Schizophrenia, unspecified (19) Folic acid deficiency SNOMED Code(s): 268131482 Code(s): E53.8 - DEFICIENCY OF OTHER SPECIFIED B GROUP VITAMINS Status: Acute Priority: High Current Visit: Yes (20) Dementia SNOMED Code(s): 67239806 Code(s): F03.90 - UNSPECIFIED DEMENTIA WITHOUT BEHAVIORAL DISTURBANCE Status: Chronic Priority: High Current Visit: Yes Qualifiers: Dementia type: unspecified type Dementia behavioral disturbance: without behavioral disturbance Qualified Code(s): F03.90 - Unspecified dementia without behavioral disturbance (21) Hypomagnesemia SNOMED Code(s): 006288839 Code(s): E83.42 - HYPOMAGNESEMIA Status: Acute Priority: High Current Visit: Yes (22) Urine retention SNOMED Code(s): 559926004 Code(s): R33.9 - RETENTION OF URINE, UNSPECIFIED Status: Acute Priority: High Current Visit: Yes (23) Elevated phenytoin level SNOMED Code(s): 307039761 Code(s): R78.89 - FINDING OF OTH SUBSTANCES, NOT NORMALLY FOUND IN BLOOD Status: Acute Priority: High Current Visit: Yes - Problem List Review Problem List Initiated/Reviewed/Updated: Yes - My Orders Last 24 Hours: My Active Orders 05/03/21 09:00 Magnesium Oxide 400 mg PO DAILY - Assessment Assessment:: Assessment - 04/29/2021 (admitted late 04/28/2021) * 75-year-old female who presents to ED accompanied by her daughter due to concerns of weakness and poor oral intake * History of: HLD, HTN, COPD, GERD, chronic renal sufficiency, osteoporosis, CVA, seizures, bipolar disorder, schizophrenia, dementia * Reportedly had declining ability to ambulate over the past 2 weeks * Had been utilizing a walker and now is wheelchair-bound * Has had multiple falls. * Lives at home with her * Daughter is concerned that she may have a urinary tract infection and is dehydrated * No known fevers, vomiting, diarrhea. * She does have baseline dementia which per the daughter is stable * History of CVA with no residual deficiency * On Coumadin for stroke prophylaxis. * Labs are obtained in ED and on floor * WBC of 9.42-->5.81 * Hemoglobin 11.7-->10.6 * Platelet 327,000-->260,000 * Neutrophils are elevated 73.0%-->61.6% * INR is very high at 6.92-->3.20 * Sodium 132-->129 * Potassium 4.6-->4.0 * Chloride 98-->100 * Carbon dioxide 26-->20 * Anion gap is 12.6-->13.0 * BUN is 22-->18 Creatinine 1.5-->1.1 GFR is 34-->48 * Glucose is 108-->75 * Magnesium 1.8. * Bilirubin 0.4-->0.3 * AST is 25-->23, ALT 21-->16, alkaline phosphatase 130-->16. * Troponin less than 0.017. * CRP is 5.9. * Protein is 6.7-->6.2 * Albumin 3.0-->2.6 * Vitamin D 34.1 * Folate 3.5 * TSH 2.395 * UA is obtained and is grossly positive with cloudy urine, 2+ protein, 1+ ketones, 2+ occult blood, 1+ bilirubin, 2+ leukocyte esterase, 5-10 RBCs, greater than 100 WBCs, few WBC clumps, and many bacteria noted. * SARS-CoV-2 RNA is negative. * She is given 2 g Rocephin and started on IV fluids. She is given 2.5 mg vitamin K due to her high INR. 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 No acute intracr anial hemorrhage is noted. * Chest x-ray is obtained showing acute fracture within the anterior lateral left fifth rib and to subacute fractures within the right ribs. Other findings are noted which are nonacute. * She is subsequently admitted to the ICU as a medical floor overflow for management of her UTI and failure to thrive. 04/30/2021 Patient is doing better today. She appears to be less confused. I spoke with daughter today who stated that she was started on warfarin in 2002 after her second CVA. Apparently they found a brain aneurysm and decided to put her on warfarin to prevent a clot in the aneurysm. Patient apparently was seen approximately 6 months ago, had some type of imaging, and the neurosurgeon stated that he did not see an aneurysm. Warfarin was not addressed. 05/01/2021 No new complaints. Pt is weak. She is not eating much of anything. 05/02/2021 75-year-old female patient, who looks much older than her stated age, who was admitted to the floor due to generalized weakness and a urinary tract infection. She has no real complaints however she remains quite weak. She has been able to stand with PT and OT and they are recommending SNF placement. Coumadin was held. She remains on room air. Labs remain grossly stable however her magnesium today was 1.7 and this will be supplemented with 2 g[address] She did [address] Dr[address] Booker, psychiatry, today via telemedicine and we are waiting his recomm endations. Social work is working on placement. Will remain hospitalized until placed. Urine sensitivities are pending. 05/03/2021 75-year-old female patient admitted to the floor for weakness and a urinary tract infection. Urine is growing pansensitive Staphylococcus Lugdunensis. She has completed 5 days of IV antibiotics with Rocephin and this will be discontinued. Labs today show WBC of 5.14. Hemoglobin is 10.9. Sodium 137. Potassium 3.9. Carbon dioxide 29. Anion gap 9.9. BUN is 6. Creatinine 0.7. GFR greater than 60. Glucose 89. Magnesium is 1.9. We will start her on a daily 400 mg magnesium supplementation. Brito catheter was removed yesterday a nd trial and unfortunately patient continued to have urine retention. Brito catheter was replaced and she will need to follow-up with urology regarding this. She did see Dr. Booker via telepsychiatry who had no further concerns with her medications and recommended continuing what she is on. Social work has been involved in her screening is pending for SNF. PT and OT continue to recommend SNF rehab stay. She will remain hospitalized pending placement, which is pending her screening. - Plan Plan:: Plan:: Urinary tract infection - Competed treatment * Pulmonary urine culture- Staphylococcus Lugdunensis- walls sensitive * Blood cultures negative thus far * Completed 5 days IV Rocephin Left rib fracture Multiple falls Failure to thrive Weakness Osteoporosis * PT/OT * CM/SW for discharge planning * Pain medications as ordered * Check TSH (WNL) * Check Vitamin D (WNL) * Check Folic acid (low) * Check B12 (WNL) Folic acid deficiency- likely due to nutritional deficiency and poor oral intake * Supplement * PCP follow-up Supratherapeutic INR Chronic anticoagulation * Discontinue Coumadin * Vitamin K given in ED Brain aneurysm - ruled inactive * Stop home warfarin Bipolar disorder Schizophrenia Dementia * Continue home psychiatric meds as ordered * Psychiatric consultation (Dr. Booker) to review medications - no changes or concerns * ? medication cause of above symptoms * Let patient sleep protocol Hyponatremia -resolved * IV fluids stopped * Monitor labs HLD (hyperlipidemia) * No acute concerns * Hold home statin COPD (chronic obstructive pulmonary disease) * No home respiratory meds * O2 as needed with saturation goal of >90% * No acute concerns GERD (gastroesophageal reflux disease) * No acute concerns CKD (chronic kidney disease) * No acute concerns * Monitor daily labs History of CVA (cerebrovascular accident) History of seizures * No acute concerns * Continue home seizure meds * Check phenytoin level Hypertension * Monitor vital signs * No acute concerns * Continue home BP meds as ordered Hypomagnesemia * Supplement * Monitor labs Urine retention * Attempted Brito catheter removal on 05/02/2021 with continued urine retention * Brito catheter replaced * Urology follow-up after discharge Elevated phenytoin level Code status: Full code PCP: Dr. Adams DVT prohylaxis: Lovenox Social: Patient lives at home with Disposition: Patient mated to medical floor for treatment of UTI and further work-up of failure to thrive including PT/OT evaluation. Given her poor overall status, she will need a SNF discharge. LOS >96 hrs due to need for SNF placement with psychiatric history
[2021-05-04] MEDS: Metoprolol Succinate 50 MG Tab.ER PO SCH (09:38)
[2021-05-04] MEDS: Folic Acid 1 MG Tab PO SCH (09:39)
[2021-05-04] MEDS: Magnesium Oxide 400 MG Tab PO SCH (09:39)
[2021-05-04] MEDS: Citalopram 20 MG Tab PO SCH (09:39)
[2021-05-04] MEDS: Ziprasidone HCl 20 MG Cap PO SCH (09:39)
[2021-05-04 09:40] VITALS: BP 157/99; PULSE 81
[2021-05-04] MEDS: Enoxaparin 30 MG/0.3 ML Syringe SUBCUT SCH (09:40)
--- NOTE | 2021-05-04 10:59 | PCM.DCSUM1 ---
Discharge Summary - Hospital Course HPI Initial Comments: This is a 75-year-old female who presents to ED on the evening hours of 04/28/2021 accompanied by her daughter due to concerns of weakness and poor oral intake. Patient has reportedly had declining ability to ambulate over the past 2 weeks. She had been utilizing a walker and now is wheelchair-bound. She has had multiple falls. She lives at home with her . Daughter is concerned that she may have a urinary tract infection and is dehydrated. No known fevers, vomiting, diarrhea. She does have baseline dementia which per the daughter is stable. History of CVA with no residual deficit. She is on Coumadin for stroke prophylaxis. In the ED temp is 97.5 Fahrenheit. Pulse 73. Respirations 16. Blood pressure 149/78. Pulse ox 93%. Labs are obtained showing a WBC of 9.42. Hemoglobin 11.7. Platelet 327,000. Neutrophils are elevated 73.0%. INR is very high at 6.92. Sodium 132. Potassium 4.6. Chloride 98. Carbon dioxide 26. Anion gap is 12.6. BUN is 22. Creatinine 1.5. GFR is 34. Glucose is 108. Magnesium 1.8. Bilirubin 0.4. AST is 25, ALT 21, alkaline phosphatase 130. Troponin less than 0.017. CRP is 5.9. Protein is 6.7. Albumin 3.0. UA is obtained and is grossly positive with cloudy urine, 2+ protein, 1+ ketones, 2+ occult blood, 1+ bilirubin, 2+ leukocyte esterase, 5-10 RBCs, greater than 100 WBCs, few WBC clumps, and many bacteria noted. SARS-CoV-2 RNA is negative. She is given 2 g Rocephin and started on IV fluids. She is given 2.5 mg vitamin K due to her high INR. Head CT is obtained showing presumed old bilateral infarcts within the occipital and upper parietal regions and senescent change. No acute intracranial hemorrhage is noted. Chest x-ray is obtained showing acute fracture within the anterior lateral left fifth rib and to subacute fractures within the right ribs. Other findings are noted which are nonacute. She carries a history of HLD, HTN, COPD, GERD, chronic renal sufficiency, osteoporosis, CVA, seizures, bipolar disorder, schizophrenia. She was never a smoker. Her PCP is Dr. Adams. He is a full code. She is subsequently admitted to the ICU as a medical floor overflow for management of her UTI and failure to thrive. Diagnosis: Stroke: No - Discharge Data Discharge Date: 05/04/21 (Admit date: 04/28/2021) Discharge Disposition: DC/Tfer to SNF 03 Condition: Good - Referral to Home Health Primary Care Physician: Tigre Adams MD - Discharge Diagnosis/Problem(s) (1) HLD (hyperlipidemia) SNOMED Code(s): 88146522 ICD Code: E78.5 - HYPERLIPIDEMIA, UNSPECIFIED Status: Chronic Priority: Low Current Visit: No Qualifiers: Hyperlipidemia type: unspecified Qualified Code(s): E78.5 - Hyperlipidemia, unspecified (2) COPD (chronic obstructive pulmonary disease) SNOMED Code(s): 05099754 ICD Code: J44.9 - CHRONIC OBSTRUCTIVE PULMONARY DISEASE, UNSPECIFIED Status: Chronic Priority: Low Current Visit: No Qualifiers: COPD type: unspecified COPD Qualified Code(s): J44.9 - Chronic obstructive pulmonary disease, unspecified (3) GERD (gastroesophageal reflux disease) SNOMED Code(s): 343558708 ICD Code: K21.9 - GASTRO-ESOPHAGEAL REFLUX DISEASE WITHOUT ESOPHAGITIS Status: Chronic Priority: Low Current Visit: No Qualifiers: Esophagitis presence: esophagitis presence not specified Qualified Code(s): K21.9 - Gastro-esophageal reflux disease without esophagitis (4) CKD (chronic kidney disease) SNOMED Code(s): 827738321 ICD Code: N18.9 - CHRONIC KIDNEY DISEASE, UNSPECIFIED Status: Chronic Priority: Medium Current Visit: Yes Qualifiers: Chronic kidney disease stage: stage 3 (moderate) Chronic kidney disease stage 3 subtype: stage 3b (GFR 30-44) Qualified Code(s): N18.32 - Chronic kidney disease, stage 3b (5) Osteoporosis SNOMED Code(s): 56229788 ICD Code: M81.0 - AGE-RELATED OSTEOPOROSIS W/O CURRENT PATHOLOGICAL FRACTURE Status: Chronic Priority: Low Current Visit: No Qualifiers: Osteoporosis type: unspecified Presence of current pathological fracture: unspecified Qualified Code(s): M81.0 - Age-related osteoporosis without current pathological fracture (6) Bipolar disorder SNOMED Code(s): 78154768 ICD Code: F31.9 - BIPOLAR DISORDER, UNSPECIFIED Status: Chronic Priority: Medium Current Visit: Yes Qualifiers: Active/Remission status: remission status unspecified Qualified Code(s): F31.9 - Bipolar disorder, unspecified (7) Left rib fracture SNOMED Code(s): 69807974 ICD Code: S22.32XA - FRACTURE OF ONE RIB, LEFT SIDE, INIT FOR CLOS FX Status: Acute Priority: Medium Current Visit: Yes Qualifiers: Encounter type: initial encounter Rib fracture type: single rib Fracture type: closed Qualified Code(s): S22.32XA - Fracture of one rib, left side, initial encounter for closed fracture (8) Multiple falls SNOMED Code(s): 876952380 ICD Code: R29.6 - REPEATED FALLS Status: Acute Priority: High Current Visit: Yes (9) Weakness SNOMED Code(s): 93052751 ICD Code: R53.1 - WEAKNESS Status: Acute Priority: High Current Visit: Yes (10) Supratherapeutic INR SNOMED Code(s): 903438724 ICD Code: R79.1 - ABNORMAL COAGULATION PROFILE Status: Resolved Priority: High Current Visit: Yes (11) Hyponatremia SNOMED Code(s): 40587545 ICD Code: E87.1 - HYPO-OSMOLALITY AND HYPONATREMIA Status: Resolved Priority: High Current Visit: Yes (12) Failure to thrive SNOMED Code(s): 03274994 ICD Code: KQI1702 - Status: Acute Priority: High Current Visit: Yes Qualifiers: Failure to thrive age range: in adult Qualified Code(s): R62.7 - Adult failure to thrive (13) Urinary tract infection SNOMED Code(s): 65274264 ICD Code: N39.0 - URINARY TRACT INFECTION, SITE NOT SPECIFIED Status: Resolved Priority: High Current Visit: Yes Qualifiers: Urinary tract infection type: acute cystitis Hematuria presence: with hematuria Qualified Code(s): N30.01 - Acute cystitis with hematuria (14) Chronic anticoagulation SNOMED Code(s): 696106982 ICD Code: Z79.01 - STILL WORKER HELPER (CURRENT) USE OF ANTICOAGULANTS Status: Resolved Priority: High Current Visit: Yes (15) History of CVA (cerebrovascular accident) SNOMED Code(s): 011079351 ICD Code: Z86.73 - PRSNL HX OF TIA (TIA), AND CEREB INFRC W/O RESID DEFICITS Status: Chronic Priority: Medium Current Visit: No (16) History of seizures SNOMED Code(s): 633732888 ICD Code: Z87.898 - PERSONAL HISTORY OF OTHER SPECIFIED CONDITIONS Status: Chronic Priority: Medium Current Visit: No (17) Hypertension SNOMED Code(s): 67932714 ICD Code: I10 - ESSENTIAL (PRIMARY) HYPERTENSION Status: Chronic Priority: Medium Current Visit: No Qualifiers: Hypertension type: unspecified Qualified Code(s): I10 - Essential (primary) hypertension (18) Schizophrenia SNOMED Code(s): 66188097 ICD Code: F20.9 - SCHIZOPHRENIA, UNSPECIFIED Status: Chronic Priority: Medium Current Visit: No Qualifiers: Schizophrenia type: unspecified Qualified Code(s): F20.9 - Schizophrenia, unspecified (19) Folic acid deficiency SNOMED Code(s): 648386252 ICD Code: E53.8 - DEFICIENCY OF OTHER SPECIFIED B GROUP VITAMINS Status: Acute Priority: High Current Visit: Yes (20) Dementia SNOMED Code(s): 85017777 ICD Code: F03.90 - UNSPECIFIED DEMENTIA WITHOUT BEHAVIORAL DISTURBANCE Status: Chronic Priority: High Current Visit: Yes Qualifiers: Dementia type: unspecified type Dementia behavioral disturbance: without behavioral disturbance Qualified Code(s): F03.90 - Unspecified dementia without behavioral disturbance (21) Hypomagnesemia SNOMED Code(s): 314061525 ICD Code: E83.42 - HYPOMAGNESEMIA Status: Acute Priority: High Current Visit: Yes (22) Urine retention SNOMED Code(s): 163245334 ICD Code: R33.9 - RETENTION OF URINE, UNSPECIFIED Status: Acute Priority: High Current Visit: Yes (23) Elevated phenytoin level SNOMED Code(s): 532528511 ICD Code: R78.89 - FINDING OF OTH SUBSTANCES, NOT NORMALLY FOUND IN BLOOD Status: Acute Priority: High Current Visit: Yes - Patient Summary/Data Consults: Consultations 04/28/21 22:29 Consult to Physician [CONS] Routine 04/29/21 07:16 Consult to Case Management/Revenue Analyst [CONS] Routine 04/29/21 07:17 OT Evaluation and Treatment [CONS] Routine PT Evaluation and Treatment [CONS] Routine Labs Pending at D/C: None Recommended Follow-up Testing/Procedures: Follow-up with primary care provider within 5 to 7 days of discharge, sooner if needed. * Recommend recheck CBC, CMP, and magnesium in follow-up. * Patient started on 4-day short course of magnesium supplementation at discharge. Follow-up with this please. * Patient's phenytoin level elevated here and her dosing will be decreased to 100 mg daily at bedtime. Please recheck this in follow-up. * Patient diagnosed with UTI here, greater than 100 CFU's of Staphylococcus Lugdunensis. Patient completed antibiotic treatment. * Patient discharged on Brito catheter due to urinary retention. * These monitor patient's p.o. intake as she has been noted to have decreasing appetite. Follow-up with urology regarding Brito catheter at next available. Hospital Course: This is a 75-year-old female who presented to ED on the evening of 04/28/2021 with increasing weakness and poor oral intake. Per family patient has been declining over the last 2 weeks. She was originally utilizing a walker and over the past few days had been wheelchair-bound. In the ED UA was grossly positive and she was started on Rocephin. Head CT was obtained showing presumed old bilateral infarcts within the occipital and upper parietal regions at senescent change but nothing acute. Chest x-ray showed no acute fracture within the anterior lateral left fifth rib and subacute fractures within the right ribs. Other nonacute findings were noted. Throughout her stay there was never any leukocytosis. Patient was noted to have an INR of 6.92 on admission and she was given some vitamin K which did decrease her INR. Warfarin was held and she was switched to prophylactic dose Lovenox. Magnesium was low and was supplemented. B12 was within normal limits. Vitamin D was within normal limits. TSH was within normal limits. Folate was low at 3.5 and she was started on 1 mg daily supplementation. Patient is on phenytoin for seizures and phenytoin level was 27.8. Free phenytoin was 3.1. Patient was reportedly on 100 mg twice daily and this will be decreased to 100 mg extended release daily at bedtime. UA grew out Staphylococcus Lugdunensis of greater than 100,000 CFU's. This was pansensitive. She did complete antibiotic treatment here and this will not be prescribed at discharge. Warfarin use was discussed with family and as the patient is a high fall risk we will discontinue this. PCP may readdress this in the future if warranted. She did work with PT and OT who are recommending SNF placement. She was noted to have urinary retention and a Brito catheter was placed on admission. We did attempt a trial of removal which failed. Patient continued to have urge but no urine output. Bladder scan revealed nearly half liter of urine in Brito catheter was replaced. Case management is attempting to schedule urology outpatient appointment and she should follow-up with urology at next available. She was ultimately excepted at [facility]. She will be discharged on decreased dose of phenytoin 100 mg ER daily at bedtime. She will also be discharged on 4 more days of 400 mg p.o. magnesium. Primary care provider should follow-up on this. Also prescribed 1 mg folic acid at discharge. Recommend follow-up with urology as noted. All other home medications were continued. Recommend follow-up with primary care provider within 5 to 7 days of discharge, sooner if needed. Recommend repeat CBC, CMP, and magnesium in follow-up. Please recheck phenytoin level in follow-up. Patient was noted to have some poor oral intake and our dietitian was following this. Please monitor this as well. Patient discharged to [facility] today. - Patient Instructions Diet: Usual Diet as Tolerated Activity: As Tolerated Driving: Do Not Drive Showering/Bathing: May Shower Notify Provider of: Fever, Increased Pain, Nausea and/or Vomiting Other/Special Instructions: Up with primary care provider within 5 to 7 days of discharge, sooner if needed. Follow-up with urology as directed. You completed your antibiotic treatment for your urinary tract infection and one will not be prescribed at discharge. Your phenytoin level was elevated here. This may be the reason you feel of the way you do. You dosing was changed today. Please take 100 mg extended release at bedtime daily. Your primary care provider will follow up with you on this. We discontinued your warfarin as there was no real indication for it and there are concerns with fall risk. Your primary care provider may change this at their discretion. Your magnesium was low while here. We put you on a short 4-day 400 mg daily course of treatment. Your primary care provider can recheck this in follow-up and see if you need to continue this further. Your folic acid was low while here. We started you on supplementation for this. Your primary care provider may monitor this and adjust accordingly. You continue to have urinary retention while here. We attempted to remove your Brito catheter with no success. We will set you up with a urology consult outpatient and they will address it further then. Continue PT/OT at SNF. Should symptoms return or worsen contact primary care provider return the emergency room. - Discharge Plan *PRESCRIPTION DRUG MONITORING PROGRAM REVIEWED*: No *COPY OF PRESCRIPTION DRUG MONITORING REPORT IN PATIENT RAMIRO: No Prescriptions/Med Rec: Folic Acid 1 mg PO DAILY #20 tablet Magnesium Oxide 400 mg PO DAILY #4 tablet Phenytoin 100 mg PO BEDTIME #20 cap.er Home Medications: Home Meds Citalopram [Celexa] 20 mg PO DAILY 08/07/16 [History] Metoprolol Succinate [Toprol XL] 100 mg PO DAILY 08/07/16 [History] Olmesartan [Benicar] 20 mg PO DAILY 08/07/16 [History] ziprasidone HCL [Geodon] 40 mg PO BID 08/07/16 [History] Rosuvastatin Calcium 20 mg PO DAILY 06/24/20 [History] Folic Acid 1 mg PO DAILY #20 tablet 05/04/21 [Rx] Magnesium Oxide 400 mg PO DAILY #4 tablet 05/04/21 [Rx] Phenytoin 100 mg PO BEDTIME #20 cap.er 05/04/21 [Rx] Oxygen Therapy Mode: Room Air Patient Handouts: Indwelling Urinary Catheter Care, Adult, Urinary Tract Infection, Adult, [id number], Sepsis, Self Care, Adult Forms: ED Department Discharge Referrals: Tigre Adams MD [Primary Care Provider] - - Discharge Summary/Plan Comment DC Time >30 min.: Yes Total # of Minutes for Discharge Time: 45 - General Info Date of Service: 05/04/21 Admission Dx/Problem (Free Text: Admission Diagnosis/Problem Admission Diagnosis/Problem Failure to thrive in adult Functional Status: Reports: Pain Controlled, Tolerating Diet, Ambulating, Urinating. Denies: New Symptoms - Review of Systems General: Reports: Weakness. Denies: Fever, Fatigue, Malaise, Chills HEENT: Reports: No Symptoms. Denies: Headaches, Sore Throat Pulmonary: Reports: No Symptoms. Denies: Shortness of Breath, Cough, Sputum, Wheezing Cardiovascular: Reports: No Symptoms. Denies: Chest Pain, Palpitations, Dyspnea on Exertion Gastrointestinal: Reports: No Symptoms. Denies: Abdominal Pain, Constipation, Diarrhea, Nausea, Vomiting Genitourinary: Reports: No Symptoms. Denies: Pain Musculoskeletal: Reports: No Symptoms Skin: Reports: No Symptoms. Denies: Cyanosis Neurological: Reports: Confusion, Pre-Existing Deficit (Baseline schizophrenia and bipolar disorder), Difficulty Walking, Weakness. Denies: Dizziness, Headache, Numbness, Seizure, Syncope, Tingling, Gait Disturbance Psychiatric: Reports: No Symptoms - Patient Data Vitals - Most Recent: Last Vital Signs Temp 98.8 F 05/04/21 09:37 Pulse 81 05/04/21 09:38 Resp 16 05/04/21 09:37 BP 157/99 H 05/04/21 09:38 Pulse Ox 93 L 05/04/21 09:37 Weight - Most Recent: 116 lb I&O - Last 24 hours: Intake & Output 05/03/21 05/04/21 05/04/21 22:59 06:59 14:59 Intake Total 300 500 Output Total 600 500 Balance 300 -100 -500 Lab Results - Last 24 hrs: Laboratory Results - last 24 hr 04/29/21 Range/Units 10:24 Phenytoin 27.8 H* (10.0-20.0) ug/mL Free Phenytoin 3.1 H* (1.0-2.0) ug/mL Med Orders - Current: Current Medications Acetaminophen (Acetaminophen 325 Mg Tab) 650 mg PO Q4H PRN PRN Reason: Pain (Mild 1-3)/fever Citalopram Hydrobromide (Citalopram 20 Mg Tab) 20 mg PO DAILY [facility] Last Admin: 05/04/21 09:39 Dose: 20 mg Documented by: Enoxaparin Sodium (Enoxaparin 30 Mg/0.3 Ml Syringe) 30 mg SUBCUT DAILY [facility] Last Admin: 05/04/21 09:40 Dose: 30 mg Documented by: Folic Acid (Folic Acid 1 Mg Tab) 1 mg PO DAILY [facility] Last Admin: 05/04/21 09:39 Dose: 1 mg Documented by: Magnesium Oxide (Magnesium Oxide 400 Mg Tab) 400 mg PO DAILY [facility] Last Admin: 05/04/21 09:39 Dose: 400 mg Documented by: Metoprolol Succinate (Metoprolol Succinate 50 Mg Tab.Er) 100 mg PO DAILY [facility] Last Admin: 05/04/21 09:38 Dose: 100 mg Documented by: Ondansetron HCl (Ondansetron 4 Mg/2 Ml Sdv) 4 mg IV Q6H PRN PRN Reason: Nausea/Vomiting Phenytoin Sodium (Phenytoin 100 Mg Cap.Er) 100 mg PO BEDTIME SOFIA Ziprasidone (Ziprasidone Hcl 20 Mg Cap) 40 mg PO BID [facility] Last Admin: 05/04/21 09:39 Dose: 40 mg Documented by: Discontinued Medications Enoxaparin Sodium (Enoxaparin 40 Mg/0.4 Ml Syringe) 40 mg SUBCUT DAILY [facility] Last Admin: 05/01/21 09:08 Dose: 40 mg Documented by: Sodium Chloride (Normal Saline) 1,000 mls @ 150 mls/hr IV NOW STA Stop: 04/29/21 00:19 Last Infusion: 04/28/21 22:15 Dose: 50 mls/hr Documented by: Ceftriaxone Sodium 2 gm/ (Sodium Chloride) 100 mls @ 200 mls/hr IV ONETIME ONE Stop: 04/28/21 20:17 Last Admin: 04/28/21 20:46 Dose: 200 mls/hr Documented by: Sodium Chloride (Normal Saline) 1,000 mls @ 50 mls/hr IV ASDIRECTED [facility] Last Admin: 04/29/21 03:44 Dose: 50 mls/hr Documented by: Ceftriaxone Sodium 1 gm/ (Sodium Chloride) 100 mls @ 200 mls/hr IV Q24H [facility] Last Admin: 05/02/21 21:01 Dose: 200 mls/hr Documented by: Sodium Chloride (Normal Saline) 1,000 mls @ 100 mls/hr IV ASDIRECTED [facility] Stop: 04/29/21 18:59 Last Admin: 04/29/21 17:55 Dose: 100 mls/hr Documented by: Magnesium Sulfate 4 gm/ Premix 50 mls @ 12.5 mls/hr IV ONETIME ONE Stop: 04/30/21 13:01 Last Admin: 04/30/21 09:45 Dose: 12.5 mls/hr Documented by: Magnesium Sulfate 2 gm/ Premix 50 mls @ 25 mls/hr IV ONETIME ONE Stop: 05/02/21 11:10 Last Admin: 05/02/21 09:29 Dose: 25 mls/hr Documented by: Phenytoin Sodium (Phenytoin 100 Mg Cap.Er) 100 mg PO BID [facility] Last Admin: 05/03/21 20:23 Dose: 100 mg Documented by: Phytonadione (Phytonadione Oral 2.5mg/2.5ml Soln Simple Syrup U/D) 2.5 mg PO ONETIME ONE Stop: 04/28/21 20:15 Last Admin: 04/28/21 20:46 Dose: 2.5 mg Documented by: Warfarin Sodium (Pharmacy To Dose - Warfarin) 0 dose .XX ASDIRECTED PRN PRN Reason: RX TO DOSE WARFARIN Warfarin Sodium (Warfarin 1 Mg Tab) 0.5 mg PO QPM [facility] Stop: 04/29/21 18:01 Last Admin: 04/29/21 18:15 Dose: 0.5 mg Documented by: Warfarin Sodium (Warfarin 1 Mg Tab) 2 mg PO QPM [facility] Stop: 04/30/21 21:00 - Exam Quality Assessment: Reports: Urine Catheter, DVT Prophylaxis. Denies: Supplemental Oxygen General: Reports: Alert, Oriented, Cooperative, No Acute Distress HEENT: Reports: Pupils Equal, Pupils Reactive, Mucous Membr. Moist/Somis Neck: Reports: Supple, Trachea Midline Lungs: Reports: Clear to Auscultation, Normal Respiratory Effort Cardiovascular: Reports: Regular Rate, Regular Rhythm GI/Abdominal Exam: Normal Bowel Sounds, Soft, Non-Tender, No Distention (Female) Exam: Deferred Rectal (Female) Exam: Deferred Back Exam: Reports: Normal Inspection, Decreased Range of Motion Extremities: Normal Inspection, Normal Range of Motion, Non-Tender, No Pedal Edema, Normal Capillary Refill Skin: Reports: Warm, Dry, Intact Neurological: Reports: No New Focal Deficit Psy/Mental Status: Reports: Alert, Normal Affect, Normal Mood
[2021-05-04] MEDS ORDERED: Phenytoin 100 MG Cap.ER PO SCH (21:00)
== END 2021-05-04 12:20 | DRG 690 ==
LOC: JD.ED 17:03 → JD.ICU 20:24 → JD.MS 04-30 18:27 → JD.OB 05-02 18:14 → JD.MS 05-04 12:15 → UNDODISIN 05-04 12:20
PROVIDERS: ADMIT Family Medicine; ATTEND Family Medicine
DX: N30.01 Acute cystitis with hematuria (principal); S22.41XA Multiple fractures of ribs, right side, initial encounter for closed fracture; E87.1 Hypo-osmolality and hyponatremia; R62.7 Adult failure to thrive; Z20.822 Contact with and (suspected) exposure to COVID-19; E78.5 Hyperlipidemia, unspecified; J44.9 Chronic obstructive pulmonary disease, unspecified; K21.9 Gastro-esophageal reflux disease without esophagitis; I12.9 Hypertensive chronic kidney disease with stage 1 through stage 4 chronic kidney disease, or unspecified chronic kidney disease; M81.0 Age-related osteoporosis without current pathological fracture; E78.00 Pure hypercholesterolemia, unspecified; F31.9 Bipolar disorder, unspecified; F20.9 Schizophrenia, unspecified; N18.32 Chronic kidney disease, stage 3b; R29.6 Repeated falls; R79.1 Abnormal coagulation profile; E53.8 Deficiency of other specified B group vitamins; F03.90 Unspecified dementia, unspecified severity, without behavioral disturbance, psychotic disturbance, mood disturbance, and anxiety; E83.42 Hypomagnesemia; R33.9 Retention of urine, unspecified; R79.89 Other specified abnormal findings of blood chemistry; B95.8 Unspecified staphylococcus as the cause of diseases classified elsewhere; Z86.73 Personal history of transient ischemic attack (TIA), and cerebral infarction without residual deficits; Z79.01 Long term (current) use of anticoagulants; Z87.898 Personal history of other specified conditions; Z79.899 Other long term (current) drug therapy; Z88.0 Allergy status to penicillin; Z88.5 Allergy status to narcotic agent; Z88.8 Allergy status to other drugs, medicaments and biological substances
CPT/HCPCS: 36415; 51701; 51702; 51798; 70450; 70450-26; 71101-26-LT; 71101-LT; 80048; 80053; 80185; 80186; 81001; 82306; 82607; 82746; 83735; 84443; 84484; 85025; 85610; 86140; 87086; 87088; 87186; 97110-GP; 97116-GP; 97162-GP; 97530-GP; 99285; 99285-25; A9270-GY; J0696; J1650; J3475; J7030; Q3014; U0002